=== PATIENT | male | born 1950 | race Caucasian/White ===

== ENCOUNTER → 2018-09-03 08:20 | Outpatient (BNVA) | payer MEDICARE, OTHER, SELFPAY | PROVIDERS: PCP Registered Nurse; Referring Provider Registered Nurse; Visit Provider Surgery | DX: Z12.11 Encounter for screening for malignant neoplasm of colon (principal); J44.9 Chronic obstructive pulmonary disease, unspecified ==

== ENCOUNTER 2018-09-20 10:10 | Day surgery (SDC) | payer OTHER, SELFPAY ==
--- NOTE | 2018-09-20 06:55 | COLE_ITS ---
Date of service: 09/20/18 Time of Service: 11:28 Colonoscopy Report Date of procedure: 09/20/18 Pre-op diagnosis general: Colon Cancer screening Post-op diagnosis procedure note: other (colorectal polyps) Procedure: Colonoscopy with polypectomy Surgeon: Trena Phillips Anesthesia proc note operative: MAC ([place]aud, Domitila/ ASA 2) Estimated blood loss (mL): 5 Pathology: other (cecal polyp, ascending polyp, sigmoid polyp) Complications: None Disposition: same day Indications: Mr. Murguia is a pleasant 68 year old male who was seen in the office for a screening colonoscopy. His last colonoscopy was over 10 years ago in [facility] and was normal per report. Risks, benefits and complications have been reviewed. Complications include but are not limited to bleeding, pain, perforation, missed small lesion/polyp, sore throat, aspiration and adverse reaction to the medications. Questions were entertained and answered to their satisfaction and they wished to proceed. No guarantees were given or implied. Prep: Miralax/Dulcolax Procedure Start Time: :28 Procedure End Time: 12:02 Retraction Time: 19 minutes Findings: Sessile cecal polyp, ascending polyp and sigmoid polyp Procedure Description: After informed consent was obtained the patient was taken to the procedure room and placed in a left decubitous position. Monitors were applied and a time out was done. The patients name, date of , procedure, allergies to medications and metal in their body was reviewed. The patient was then sedated. Once sedated and comfortable a rectal exam was done. External exam was normal. Internal exam revealed a normal sphincter tone and no palpable masses. The prostate felt smooth. The scope was then introduced and retro-flexed. No internal hemorrhoids were identified. The scope was then advanced to the cecum without difficulty. The TI and appendiceal orifice were identified. The prep was adequate. The scope was then slowly retracted over 19 minutes back into the rectum. Polyps were removed in the cecum (sessile polyp next to the appendiceal orifice with a hot snare), ascending polyp and sigmoid polyp removed with cold forceps. The scope was removed and the patient was woken up and taken back to Same day surgery in stable condition. The patient tolerated the procedure well and there were no immediate complications. Follow up: The patient should follow up in 3-5 years unless they develop changes in bowel habits or other new gastrointestinal complaints.
--- NOTE | 2018-09-20 07:00 | W.PM.DSUDISC ---
Discharge Plan Disposition Patient Disposition: HOME Condition: Good Discharge Details Reason For Visit: Colon Cancer screening Attending Provider: Trena Phillips Primary Care Provider: DESIREE YU Home Meds and New Rx's Prescriptions: Continued aspirin [Aspirin Low Dose] 81 MG tablet,delayed release (DR/EC) 81 mg PO DAILY RF: 0 simvastatin 40 MG tablet 40 mg PO DAILY RF: 0 calcium polycarbophil [Fiber (calcium polycarbophil)] 625 MG tablet 625 mg PO RF: 0 omeprazole 20 MG capsule,delayed release(DR/EC) 20 mg PO BID RF: 0 albuterol sulfate [ProAir HFA] 8.5 GM HFA aerosol inhaler 2 puff Inhalation Q4H PRN RF: 0 fluticasone [Flonase Allergy Relief] 9.9 ML spray,suspension 9.9 ml NS RF: 0 Spiriva with HandiHaler 18 MCG capsule, w/inhalation device 18 mcg Inhalation DAILY RF: 0 Symbicort 10.2 GM HFA aerosol inhaler 2 puff Inhalation BID RF: 0 Discontinued polyethylene glycol 3350 17 gram powder in packet 255 g PO DAILY Qty: 15 RF: 0 bisacodyl [Dulcolax (bisacodyl)] 5 mg tablet,delayed release (DR/EC) 5 mg PO ONCE Qty: 4 RF: 0 Discharge Instructions Instructions: Colonoscopy (DC), Colorectal Polyps (DC) Additional Instructions: Findings: 3 polyps Follow up: 3-5 years Please call if you develop: fevers >101.5 Nausea or Vomiting Abdominal pain that is not transient DAY SURGERY UNIT POST COLONOSCOPY INSTRUCTIONS 1. Because there will be medication in your system for the next 24 hours, you may feel a little sleepy. Your coordination will be affected. Therefore: a. Do not drive or operate dangerous equipment for 24 hours. b. Do not drink alcohol beverages for 24 hours (not even beer). c. Plan to go home and rest for the day. 2. Generally there are no restrictions on your activity after a day or so has gone by, but you may feel a bit fatigued for a few days. 3 After you arrive home you may have a light meal and return to a normal diet as you can tolerate it without feeling sick to your stomach. 4. After surgery, you may feel pain or discomfort. This should be only transient, but if it persists please contact your doctor. 5. If there are any questions regarding the findings of your procedure, please feel free to contact your doctor. 6. If you are unable to contact your doctor with a problem, contact the hospital at [phone]. 7. Continue all your regular medications unless directed otherwise. I understand the above instructions and have no questions. Signature of Patient or Responsible Adult Escort Date/Time Name of Responsible Adult Escort Signature of Nurse Date/Time Activity:: Activity as Tolerated Diet:: As Tolerated Discharge Orders Discharge Orders: Discharge Order (Routine); Ordered 09/20/18 Ordered By: Trena Phillips DS: Diagnosis Discharge Diagnosis (1) S/P colonoscopy: Status: Acute (2) Colorectal polyps: Status: Acute
[2018-09-20 10:19] VITALS: BP 132/80; PULSE 65; RESP 16; TEMP 35.9
[2018-09-20] MEDS: Lactated Ringers 1,000 ML 80 ML IV (11:08)
--- NOTE | 2018-09-20 11:38 | BOWEL_PTH ---
PATIENT: Shantal Lowe LOC: [facility] U#:[id number] AGE/SX: 68/M ROOM: RE09/20/[address]: Trena Phillips MD : [id number] BED: DIS: 09/20/2018 SPEC #: [id number] RECD: 09/20/18 12:47 STATUS: JERMAIN REQ #: [id number] NOHELIA: 09/20/18 11:[address]: Trena Phillips DEPT: Surgical Specimen RECD BY: Tosha Grant ENTERED: 09/20/18 12:48 SP TYPE: Bowel OTHR DR: Pritesh Chatman Tissues: 1 - BIOPSY BOWEL 2 - BIOPSY BOWEL 3 - BIOPSY BOWEL Procedures: GROSS AND MICRO LEVEL 4 Comments: [id number]
[2018-09-20 12:45] VITALS: BP 126/78; PULSE 49; RESP 16; TEMP 35.8; O2SAT 100
== END 2018-09-20 12:55 | disposition home or self-care (01) ==
LOC: SUR 10:10
PROVIDERS: PCP Family Medicine; Visit Provider Surgery
PROC: 0DJD8ZZ Inspection of Lower Intestinal Tract, Via Natural or Artificial Opening Endoscopic (ICD-10-PCS; CPT 45378; principal; 2018-09-20 11:00)
DX: Z12.11 Encounter for screening for malignant neoplasm of colon (principal); D12.0 Benign neoplasm of cecum; D12.2 Benign neoplasm of ascending colon; K63.5 Polyp of colon; J44.9 Chronic obstructive pulmonary disease, unspecified; G47.33 Obstructive sleep apnea (adult) (pediatric); I10 Essential (primary) hypertension
CPT/HCPCS: 45385; 45380; 88305

== ENCOUNTER 2019-01-17 16:51 | Outpatient (CLI) | payer OTHER, SELFPAY ==
--- NOTE | 2019-01-17 09:30 | DI.RAD_ITS ---
SYMPTOM/DIAGNOSIS: COUGH R05, ONSET 2 WEEKS, H/O COPD SEVERE EVALUATE FOR PNEUMONIA PA AND LATERAL CHEST: Comparison is made with 03 May 2014. The heart size is normal. The aorta is tortuous, unchanged. The lungs are mildly hyperinflated, consistent with COPD No superimposed infiltrate, effusion or pulmonary edema seen. IMPRESSION: No acute abnormality.
== END 2019-01-17 17:11 ==
PROVIDERS: PCP Family Medicine; Visit Provider Registered Nurse
DX: R05 Cough (principal); J44.9 Chronic obstructive pulmonary disease, unspecified
CPT/HCPCS: 71046

== ENCOUNTER 2019-08-24 01:15 | Outpatient (CLI) | payer OTHER, SELFPAY ==
--- NOTE | 2019-08-24 12:23 | DI.CTLCSR_ITS ---
EXAM: CT CHEST LUNG CANCER SCREEN CLINICAL HISTORY: SCREENING FOR CANCER Z12.9, FORMER SMOKER Z87.891 TECHNIQUE: Low-dose noncontrast COMPARISON: XR CHEST 2V PA LATERAL from 01/17/2019 FINDINGS: Heart size is normal. Coronary artery calcifications are seen. There are mild aortic calcification s. No pleural or pericardial effusions or adenopathy is seen. No gross abnormalities seen in the vi sualized portions of the upper abdomen. There is a 6 by 3 by 5 millimeter nodule at the left lung bas e laterally. There are no suspicious features. No additional nodules are identified. There are no inf iltrates. There are underlying mild emphysematous changes. There are mildly increased interstitial ma rkings. IMPRESSION: Lung RADS Cat 3 - Probably Benign: Probably benign finding(s) -6 month follow-up suggested; includes nodules with a low likelihood of becoming a clinically active cancer.
== END 2019-08-24 01:35 ==
PROVIDERS: PCP Family Medicine; Visit Provider Family Medicine
DX: Z12.2 Encounter for screening for malignant neoplasm of respiratory organs (principal); Z87.891 Personal history of nicotine dependence; R91.1 Solitary pulmonary nodule; J43.8 Other emphysema
CPT/HCPCS: G0297

== ENCOUNTER 2020-02-01 01:57 | Outpatient (CLI) | payer OTHER, SELFPAY ==
--- NOTE | 2020-02-01 | DI.CT_ITS ---
EXAM: CT CHEST WO CLINICAL HISTORY: LUNG NODULE R91.8 TECHNIQUE: Imaging Protocol: Axial computed tomography images with coronal and sagittal reformatted images were created and reviewed CONTRAST MATERIAL: Noncontrast COMPARISON: CT CT CHEST LUNG CANCER SCREEN from 08/24/2019 FINDINGS: Tracheobronchial tree: Patent where visualized. Mediastinum and Regi: No dominant adenopathy or fluid collection. Pulmonary parenchyma: No consolidation or dominant measurable mass. The previously noted nodule at th e left lung base is not visible on the current exam. The findings could be due to differences in insp iration since is located at the lung base. There is mild underlying scarring. There are no new nodule s. Mild emphysematous changes. Pleura: No effusion or pneumothorax. Heart: The heart is not dilated. Mild coronary artery calcifications are seen. Aorta: Thoracic aorta non-dilated. Mild calcification. Upper abdomen: Unremarkable. There is respiratory motion. Lymph nodes: Within normal limits. Bones: Degenerative changes are seen in the spine. IMPRESSION: Previously noted nodule at the left costophrenic angle is not visible on today's examination. If the patient is at increased risk for lung cancer, a low-dose screening CT could be considered in 1 2 months. RADIATION DOSE DELIVERED: Total DLP DATA REPOSITORY: All CT scans at this facility are submitted to the National Radiology Data Registry (NRDR) Dose Index Registry (DIR) with the [employer] ([employer]). RADIATION OPTIMIZATION: All CT scans at this facility use at least one of these dose optimization te chniques: automated exposure control; mA and/or kV adjustment per patient size (includes targeted exa ms where dose is matched to clinical indication); or iterative reconstruction.
== END 2020-02-01 02:17 ==
PROVIDERS: PCP Family Medicine; Visit Provider Family Medicine
DX: R91.1 Solitary pulmonary nodule (principal); J43.8 Other emphysema
CPT/HCPCS: 71250

== ENCOUNTER 2021-03-14 01:53 | Outpatient (CLI) | payer OTHER, SELFPAY ==
--- NOTE | 2021-03-14 | DI.CTLCSR_ITS ---
Exam(s) CT CHEST LUNG CANCER SCREEN EXAM: CT CHEST LUNG CANCER SCREEN CLINICAL HISTORY: SCREENING FOR LUNG CA,FORMER SMOKER, Z87.891,sofat[employer],. TECHNIQUE: Imaging Protocol: Low Dose Technique CONTRAST MATERIAL: None COMPARISON: CT CT CHEST LUNG CANCER SCREEN from 08/24/[address] CHEST LUNG CANCER SCREEN from 08/24/[address] CHEST WO from 02/01/[address] CHEST WO from 02/01/2020 FINDINGS: CHEST: LUNGS: In the anterior left lung base anterior basal segment left lower lobe the small nodule describ ed on the July 2019 study is noted, unchanged in size, measuring approximately 6 x 3 millimeters. There are no additional focal findings in the left lower lobe. There is a 3 millimeter nodular dens ity fissure based at superior segment at at the fissure level of the apical posterior segment of the left upper lobe, unchanged.. In the opposite-right lung there is an unchanged 3 millimeter pleural based nodule posteriorly over t he upper lobe. No new significant right lung findings. No pleural effusions on either side. No sig nificant focal findings in the trachea and mainstem bronchi. MEDIASTINUM: There is no obvious hilar nor mediastinal adenopathy. CARDIAC: Heart size is normal. There is no pericardial effusion.Caliber of the thoracic aorta is wit hin normal limits. OTHER: OSSEOUS: No significant osseous lesions.. IMPRESSION: 1. Stable bilateral benign-appearing lung findings. No new nodules. No pleural effusions. No obvio us intrathoracic adenopathy. 3. Lung RADS Cat 2 - Benign Appearance / Behavior: Nodules with a very low likelihood of becoming a c linically active cancer due to size or lack of growth Lung-RADS 1.0 CATEGORIES: Category 0 - Prior chest CT exam(s) being located for comparison. Category 1 - Annual screening in 12 months. No nodules or definitely benign nodules. Category 2 - Annual screening in 12 months. Benign appearance. Nodules with low likelihood of becomin g active cancer. Category 3 - 6-month follow-up. Probably benign. Short-term follow-up suggested. Nodules with low lik elihood of becoming active cancer. Category 4A - 3-month follow-up and CT/PET if >8 mm in size. Suspicious finding. Findings which requi re additional testing. Category 4B - Findings which require additional testing and tissue sampling. Modifier S- Potentially clinically significant findings (non lung cancer) RADIATION DOSE DELIVERED: 89.64mGy.cm Total DLP 1.84mGy CTDIvol DATA REPOSITORY: All CT scans at this facility are submitted to the National Radiology Data Registry (NRDR) Dose Index Registry (DIR) with the [employer] ([employer]). RADIATION OPTIMIZATION: All CT scans at this facility use at least one of these dose optimization te chniques: automated exposure control; mA and/or kV adjustment per patient size (includes targeted exa ms where dose is matched to clinical indication); or iterative reconstruction.
== END 2021-03-14 02:13 ==
PROVIDERS: PCP Family Medicine; Visit Provider Family Medicine
DX: Z12.2 Encounter for screening for malignant neoplasm of respiratory organs (principal); Z00.00 Encounter for general adult medical examination without abnormal findings; Z87.891 Personal history of nicotine dependence
CPT/HCPCS: 71271

== ENCOUNTER 2021-05-15 10:39 | Emergency (ER) | payer MEDICARE, SELFPAY ==
[2021-05-15] VITALS (38 sets, daily range): BP systolic 114–151; BP diastolic 62–92; PULSE 65–102; RESP 15–31; TEMP 37; O2SAT 92–96
--- NOTE | 2021-05-15 10:45 | RT.EKG_ITS ---
APPROVED REPORT Exam: Resting ECG Reason for Exam: sob Patient Location: E HR:74 bpm ECG Measurements Heart Rate 74 AXIS SD 171 P 83 QRSd 90 QRS -79 QT 385 T 67 QTc 428 Conclusion Sinus rhythm LAD, consider left anterior fascicular block.
--- NOTE | 2021-05-15 10:58 | W.ED.GENAD ---
Discharge Plan Disposition Patient Disposition: HOME Condition: Stable Discharge Details Clinical Impression: Dyspnea Primary Care Provider: Guido Jarquin ED Provider: Solomon Cook Home Meds and New Rx's Prescriptions: New prednisone 20 mg tablet 60 mg PO DAILY 5 Days Qty: 15 RF: 0 Continued simvastatin 40 MG tablet 40 mg PO DAILY RF: 0 omeprazole 20 MG capsule,delayed release(DR/EC) 20 mg PO BID RF: 0 albuterol sulfate [ProAir HFA] 8.5 GM HFA aerosol inhaler 2 puff Inhalation Q4H PRN RF: 0 fluticasone propionate [Flonase Allergy Relief] 9.9 ML spray,suspension 9.9 ml NS RF: 0 Spiriva with HandiHaler 18 MCG capsule, w/inhalation device 18 mcg Inhalation DAILY RF: 0 budesonide-formoterol [Symbicort] 10.2 GM HFA aerosol inhaler 2 puff Inhalation BID RF: 0 Discharge Instructions Instructions: Dyspnea (ED) Additional Instructions: Work-up in the ER today does not reveal any obvious emergent process. As we discussed your BNP was slightly elevated but your examination is not consistent with moderate or severe heart failure. Your CT of your chest was unremarkable. I personally spoke with Dr. Jarquin, he is aware of your ER visit and will follow you likely early next week. At this time your oxygen level has remained in the 90s and you do not require any supplemental oxygen. You were given a single dose of IV steroids here in the ER and I will provide you a 5-day burst dose of oral steroids. Please watch for new or worsening symptoms and return to the ER for any concerns. I would like you to contact your primary care office in the next 48 hours if they do not reach out to you to make your follow-up appointment Discharge Data Discharge Date/Time-TO BE ENTERED AT DEPARTURE: 05/15/21 14:40 Medical Decision Making 70-year-old gentleman, multiple comorbidities, presents to the ER reporting shortness of breath worsening over the past couple of days. Clinically he is slightly tachypneic, mild scattered wheezes, but speaks in full sentences and in no respiratory distress. Clinically this very well could be a COPD exacerbation would like to initiate cardiac work-up to further evaluate for atypical ACS, pneumonia, Covid, CHF, etc. Will provide 125 IV Solu-Medrol given his presentation. Wheezes clear with coughing, will not initiate albuterol or DuoNeb. Patient is afebrile, pulse in the 80s, O2 sat 95% on room air. Laboratory values reveal mild nonspecific leukocytosis of 12.35 hemoglobin 17.4 hematocrit 52.5 platelet count 264. INR 1.0. Electrolytes unremarkable, creatinine 1.1 with a GFR greater than 60. Magnesium 1.7, troponin less than 0.05, BNP slightly elevated at 773, no prior BNP for comparison. Patient does not have any pedal edema. No history of CHF. Awaiting chest CTA for further information, did not obtain D-dimer given his complaint of shortness of breath and wanting to rule out DVT, Covid-like changes, etc. troponin less than 0.05. CTA of the chest negative for PE. No pleural effusion. No new pulmonary nodules. Repeat troponin less than 0.05. Repeat EKG at [address] Flanagan as normal sinus rhythm, ventricular 74, no STEMI, please see his official report Patient appears well, no acute distress, speaking in full sentences, ambulates to the restroom without difficulty. O2 sats remained in the mid to high 90s on room air. He is not requiring supplemental oxygen. Patient still says that he has his subjective complaint although may be slightly better than his initial presentation. Given his age and multiple comorbidities, will discuss the case with his primary care provider. Case was discussed with Dr. Jarquin. He states that the patient was doing really well and they discontinued his Symbicort back in October, maybe it is time to get him back on this medication. He does believe that a 5-day burst dose of steroids is reasonable, he will see the patient early next week, and discuss his symptoms and discussed the potential of reinstating Symbicort. Patient was made aware of this plan. He has no additional questions or concerns and is comfortable with this plan. Standard discharge and return precautions provided This documentation was generated using [employer] system, please disregard any oddities of phrase or misspellings. Medical Records Medical records reviewed: Yes I reviewed the patient's medical records. Imaging Data Radiologic Study: Attestation: I personally reviewed and interpreted this imaging study as follows: Imaging: CT Scan Radiologist's impression: Exam(s) CT CHEST PE CTA EXAM: CT CHEST PE CTA CLINICAL HISTORY: SOB. TECHNIQUE: Imaging Protocol: Axial CT angiography was performed with multi-slice acquisition and multi-planar and/or 3D reconstructions. CONTRAST MATERIAL: Intravenous: Omnipaque 350 Contrast volume:100 mL COMPARISON: CT CT CHEST LUNG CANCER SCREEN from 03/14/2021 FINDINGS: The examination is limited due to patient motion artifact. Tracheobronchial tree: Patent where visualized. Pulmonary parenchyma: No focal consolidating infiltrates. No new pulmonary nodules are seen since the prior examination from 03/14/2021. No architectural distortion. Pulmonary Arteries: No evidence of filling defect to suggest pulmonary emboli. Mediastinum and Regi: No dominant adenopathy or fluid collection. Visualized thyroid gland: Unremarkable. Pleura: No effusion or pneumothorax. Heart: The heart is not dilated. There is coronary artery calcification. No pericardial effusion. Aorta: Thoracic aorta non-dilated. No evidence of dissection. Atherosclerosis. Upper abdomen: Unremarkable. Soft tissues: Unremarkable. Bones: Within normal limits for the patient's age. IMPRESSION: 1. No evidence of pulmonary embolism, thoracic aortic dissection or aneurysm. 2. Results of this exam have been verbally communicated with provider. Lab Data Lab results reviewed: Yes I reviewed the patient's lab results. Labs: Laboratory Tests Range/Units 05/15/21 05/15/21 05/15/21 11:02 11:02 11:02 WBC (4.4-10.8) 10^3/uL 12.35 H RBC (4.36-5.78) 10^6/uL 5.71 Hgb (13.5-17.5) g/dL 17.4 Hct (40.0-50.0) % 52.5 H MCV (80-95) fL 91.9 MCH (27.0-33.0) pg 30.5 MCHC (32.0-36.0) % 33.1 RDW (11.8-14.1) % 12.2 Plt Count (130-400) 10^3/uL 264 MPV (8.0-11.0) fL 10.9 Immature Gran % 0.5 Neutrophils % 81.1 Lymphocytes % 10.2 Monocytes % 7.0 Eosinophils % 0.7 Basophils % 0.5 Nucleated RBC % % 0 Absolute Neutrophils (1.2-6.7) 10^3/uL 10.02 H Absolute Lymphocytes (1.2-3.4) 10^3/uL 1.26 Absolute Monocytes (0.1-0.8) 10^3/uL 0.86 H Absolute Eosinophils (0.0-0.7) 10^3/uL 0.09 Absolute Basophils (0.0-0.2) 10^3/uL 0.06 PT (9.3-11.0) sec 10.4 INR (0.9-1.1) 1.0 APTT (21.0-27.5) sec 22.7 Sodium (136-145) mmol/L 139 Potassium (3.5-5.1) mmol/L 4.0 Chloride (98-107) mmol/L 103 Carbon Dioxide (21.0-32.0) mmol/L 24.9 Anion Gap (3-11) mmol/L 11.1 H BUN (7-18) mg/dL 17 Creatinine (0.70-1.30) mg/dL 1.1 Estimated GFR/1.73 m2 (mL/min/1.73m2) >= 60.00 Glucose (74-106) mg/dL 109 H Calcium (8.5-10.1) mg/dL 8.9 Magnesium (1.8-2.4) mg/dL 1.7 L Total Bilirubin (0.2-1.0) mg/dL 0.7 AST (15-37) U/L 13 L ALT (16-63) U/L 20 Alkaline Phosphatase (46-116) U/L 66 Troponin I (<0.06) ng/mL < 0.05 NT-Pro-B Natriuret Pep (<300) pg/mL 773 H Total Protein (6.4-8.2) g/dL 7.1 Albumin (3.4-5.0) g/dL 4.0 COVID-19 Source SARS-CoV-2 (PCR) (Negative) Range/Units 05/15/21 05/15/21 11:07 14:02 WBC (4.4-10.8) 10^3/uL RBC (4.36-5.78) 10^6/uL Hgb (13.5-17.5) g/dL Hct (40.0-50.0) % MCV (80-95) fL MCH (27.0-33.0) pg MCHC (32.0-36.0) % RDW (11.8-14.1) % Plt Count (130-400) 10^3/uL MPV (8.0-11.0) fL Immature Gran % Neutrophils % Lymphocytes % Monocytes % Eosinophils % Basophils % Nucleated RBC % % Absolute Neutrophils (1.2-6.7) 10^3/uL Absolute Lymphocytes (1.2-3.4) 10^3/uL Absolute Monocytes (0.1-0.8) 10^3/uL Absolute Eosinophils (0.0-0.7) 10^3/uL Absolute Basophils (0.0-0.2) 10^3/uL PT (9.3-11.0) sec INR (0.9-1.1) APTT (21.0-27.5) sec Sodium (136-145) mmol/L Potassium (3.5-5.1) mmol/L Chloride (98-107) mmol/L Carbon Dioxide (21.0-32.0) mmol/L Anion Gap (3-11) mmol/L BUN (7-18) mg/dL Creatinine (0.70-1.30) mg/dL Estimated GFR/1.73 m2 (mL/min/1.73m2) Glucose (74-106) mg/dL Calcium (8.5-10.1) mg/dL Magnesium (1.8-2.4) mg/dL Total Bilirubin (0.2-1.0) mg/dL AST (15-37) U/L ALT (16-63) U/L Alkaline Phosphatase (46-116) U/L Troponin I (<0.06) ng/mL < 0.05 NT-Pro-B Natriuret Pep (<300) pg/mL Total Protein (6.4-8.2) g/dL Albumin (3.4-5.0) g/dL COVID-19 Source Nasal/Nares SARS-CoV-2 (PCR) (Negative) Negative ECG Data Attestation: I personally reviewed and interpreted this ECG (s) as follows: Interpretation: Please see official report by Dr. Flanagan. Sinus rhythm, ventricular rate of 74. No STEMI HPI General Mode of arrival: ambulatory. Date/Time Provider Initiated Documentation: 05/15/21 10:45. Limitations to Documentation: no limitations. Information obtained by: patient. HPI Narrative: This is a 70-year-old male, past medical history that includes COPD, hypertension, GERD, hyperlipidemia, obstructive sleep apnea, current smoker, presenting to the ER today complaining of chest acute on chronic shortness of breath over the past couple of days. Patient reports a chronic cough may be slightly worse over the past couple of days. He denies any chest pain whatsoever, reports that he simply feels like he cannot catch his breath. He has been taking all of his medications as directed. He does report decreased appetite, vomited 1 time yesterday. He is currently taking amoxicillin for a tooth infection is scheduled to have his tooth extracted in the next week. He states that he has been vaccinated against Covid. He denies recent illness, sick contact, or travel. He denies headache, visual changes, neck pain, chest pain abdominal pain, nausea, pain or swelling in his legs, fluid retention, change in bowel or bladder function. Denies history of DVT or PE. Related Data Home Medications Medication Instructions Recorded Confirmed Spiriva with HandiHaler 18 mcg INHALATION DAILY tab-cap NS 03/15/18 05/15/21 albuterol sulfate [ProAir HFA] 2 puff INHALATION Q4H PRN inhaler 03/15/18 05/15/21 NS budesonide-formoterol [Symbicort] 2 puff INHALATION BID inhaler NS 03/15/18 05/15/21 fluticasone propionate [Flonase 9.9 ml NS NS 03/15/18 09/03/18 Allergy Relief] omeprazole 20 mg PO BID NS 03/15/18 05/15/21 simvastatin 40 mg PO DAILY tab-cap NS 03/15/18 05/15/21 prednisone 60 mg PO DAILY 5 Days #15 tab 05/15/21 Previous Rx's Medication Instructions Recorded prednisone 60 mg PO DAILY 5 Days #15 tab 05/15/21 Allergies Allergy/AdvReac Type Severity Reaction Status Date / Time No Known Allergies Allergy Unverified 05/15/21 11:15 General Stated Complaint: SOB JAGUAR: 2 Review of Systems Constitutional Constitutional: Denies fatigue, Denies fever(s) and Denies weakness Eyes Eyes: Denies change in vision ENT Ears, Nose, Mouth, and Throat: Denies neck pain Cardiovascular Cardiovascular: Denies chest pain and Reports dyspnea Respiratory Respiratory: Reports cough and Reports dyspnea Gastrointestinal Gastrointestinal: Denies abdominal pain, Denies nausea and Reports vomiting Genitourinary Genitourinary: Denies dysuria Musculoskeletal Musculoskeletal: Denies back pain and Denies neck pain Integumentary/Breasts Skin/Breast: Denies rash Neurologic Neurologic: Denies weakness Endocrine Endocrine: Denies fatigue Hematologic/Lymphatic Hematologic/Lymphatic: Denies easy bleeding and Denies easy bruising PFSH Medical History Colorectal polyps (~09/20/18) COPD (chronic obstructive pulmonary disease) Elevated blood pressure reading in office without diagnosis of hypertension GERD (gastroesophageal reflux disease) Hyperlipidemia Neck pain Onychomycosis of toenail MAURICIO (obstructive sleep apnea) Seasonal allergies Seborrheic keratosis Syncope Surgical History S/P colonoscopy S/P colonoscopy (~09/20/18) Social History Smoking/Tobacco Use Status: Current every day Tobacco Type: cigarettes Smoking risk assessment performed?: Yes Alcohol Intake: current Alcohol Intake frequency: a few times a month Drug use: Never Substance use type: does not use 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 Do you feel safe at home: Yes Do you feel safe in your relationship?: Yes Exam Const General: cooperative, healthy appearing, comfortable and no acute distress Orientation: alert, awake and oriented x3 HENMT Head: normal to inspection, normocephalic and atraumatic Face and sinus: normal facial exam Mouth: moist mucous membranes Eyes General: appearance normal, both eyes and all related structures Conjunctivae: conjunctivae normal Neck Neck: normal visual inspection, full ROM, no lymphadenopathy, no meningeal signs, trachea midline, supple and nontender Resp Effort & Inspection: able to speak in complete sentences, cough Quality of cough: dry (Mild) and tachypneic (Slightly) Auscultation: diminished lung sounds bilaterally in the lower lung merino and wheezes (Mild, scattered, mostly clear with cough) Cardio Rate: regular rate Rhythm: regular rhythm GI Palpation: soft, not firm, no guarding, no pulsatile masses and nontender Auscultation: normal bowel sounds Back/Spine/Pelvis Back: No back tenderness Skin General skin exam: no rashes or lesions noted Neuro General: patient alert, patient awake, moves all extremities and no focal motor deficits Cognition: normal cognition Speech: speech normal Gait: normal gait Motor: muscle tone normal throughout Sensory Exam: no sensory deficits noted Extrem General: normal to inspection, full ROM, capillary refill normal, no pedal edema and no calf tenderness Psych Appearance: grossly normal Mental Status: mental status grossly normal Course Vital Signs Vital signs: Vital Signs Temperature 37.0 C 05/15/21 10:49 Pulse 85 05/15/21 10:49 Respiratory Rate 28 H 05/15/21 10:49 Blood Pressure 136/83 05/15/21 10:49 Pulse Oximetry 95 05/15/21 10:49 Temperature 37.0 C 05/15/21 10:49 Temperature Source Temporal Artery Scan 05/15/21 10:49 Pulse 85 05/15/21 10:49 Respiratory Rate 28 H 05/15/21 10:49 Blood Pressure 136/83 05/15/21 10:49 Blood Pressure Position Sitting 05/15/21 10:49 Pulse Oximetry 95 05/15/21 10:49 Oxygen Delivery Method Room Air 05/15/21 10:49 Oxygen Flow Rate 0 05/15/21 10:49 Pain Level 0 05/15/21 10:49
[2021-05-15 11:15] LABS: Abs Immature Grans 0.06 10^3/uL (0.0-0.06); Absolute Basophil Count 0.06 10^3/uL (0.0-0.2); Absolute Eosinophil Count 0.09 10^3/uL (0.0-0.7); Absolute Lymphocyte Count 1.26 10^3/uL (1.2-3.4); Absolute Monocyte Count 0.86 10^3/uL (0.1-0.8); Absolute Neutrophil Count 10.02 10^3/uL (1.2-6.7); Basophils % 0.5; Eosinophils % 0.7; HCT 52.5 % (40.0-50.0); HGB 17.4 g/dL (13.5-17.5); Immature Grans % 0.5; Lymphocytes % 10.2; MCH 30.5 pg (27.0-33.0); MCHC 33.1 % (32.0-36.0); MCV 91.9 fL (80-95); MPV 10.9 fL (8.0-11.0); Neutrophils % 81.1; Nucleated RBC 0 %; Platelet Count 264 10^3/uL (130-400); RBC 5.71 10^6/uL (4.36-5.78); RDW 12.2 % (11.8-14.1); RDW-SD 41.5 fL; WBC 12.35 10^3/uL (4.4-10.8)
[2021-05-15 11:15] LABS: Source Nasal/Nares
[2021-05-15 11:34] LABS: ALT 20 U/L (16-63); AST 13 U/L (15-37); Alkaline Phosphatase 66 U/L (46-116); Anion Gap 11.1 mmol/L (3-11); BUN 17 mg/dL (7-18); Bilirubin, Total 0.7 mg/dL (0.2-1.0); CO2 24.9 mmol/L (21.0-32.0); CREATININE 1.1 mg/dL (0.70-1.30); Calcium 8.9 mg/dL (8.5-10.1); Chloride 103 mmol/L (98-107); Glucose 109 mg/dL (74-106); Magnesium 1.7 mg/dL (1.8-2.4); NT-proBNP 773 pg/mL (<300); Sodium 139 mmol/L (136-145); Total Protein 7.1 g/dL (6.4-8.2)
[2021-05-15 11:35] LABS: Troponin I < 0.05 ng/mL (<0.06)
[2021-05-15 11:59] LABS: PTT Activated 22.7 sec (21.0-27.5); Prothrombin Time 10.4 sec (9.3-11.0)
[2021-05-15] MEDS: Omnipaque 350 MG/ML 100 ML BTL IJ (12:07)
[2021-05-15] MEDS: Normal Saline - Diluent 50 ML VIAL IV (12:08)
[2021-05-15] MEDS: Normal Saline Flush 10 ML SYR IVP (12:08)
--- NOTE | 2021-05-15 12:10 | DI.CT_ITS ---
Exam(s) CT CHEST PE CTA EXAM: CT CHEST PE CTA CLINICAL HISTORY: SOB. TECHNIQUE: Imaging Protocol: Axial CT angiography was performed with multi-slice acquisition and mu lti-planar and/or 3D reconstructions. CONTRAST MATERIAL: Intravenous: Omnipaque 350 Contrast volume:100 mL COMPARISON: CT CT CHEST LUNG CANCER SCREEN from 03/14/2021 FINDINGS: The examination is limited due to patient motion artifact. Tracheobronchial tree: Patent where visualized. Pulmonary parenchyma: No focal consolidating infiltrates. No new pulmonary nodules are seen since th e prior examination from 03/14/2021. No architectural distortion. Pulmonary Arteries: No evidence of filling defect to suggest pulmonary emboli. Mediastinum and Regi: No dominant adenopathy or fluid collection. Visualized thyroid gland: Unremarkable. Pleura: No effusion or pneumothorax. Heart: The heart is not dilated. There is coronary artery calcification. No pericardial effusion. Aorta: Thoracic aorta non-dilated. No evidence of dissection. Atherosclerosis. Upper abdomen: Unremarkable. Soft tissues: Unremarkable. Bones: Within normal limits for the patient's age. IMPRESSION: 1. No evidence of pulmonary embolism, thoracic aortic dissection or aneurysm. 2. Results of this exam have been verbally communicated with provider. RADIATION DOSE DELIVERED: 502.61mGy.cm Total DLP DATA REPOSITORY: All CT scans at this facility are submitted to the National Radiology Data Registry (NRDR) Dose Index Registry (DIR) with the [employer] (ACR). RADIATION OPTIMIZATION: All CT scans at this facility use at least one of these dose optimization te chniques: automated exposure control; mA and/or kV adjustment per patient size (includes targeted exa ms where dose is matched to clinical indication); or iterative reconstruction.
[2021-05-15 12:29] LABS: COVID-19 PCR Negative (Negative)
[2021-05-15] MEDS: methylPREDNISolone SUCC 125 MG VIAL IVP (13:23)
--- NOTE | 2021-05-15 13:45 | RT.EKG_ITS ---
APPROVED REPORT Exam: Resting ECG Reason for Exam: sob Patient Location: E HR:74 bpm ECG Measurements Heart Rate [address] 182 P 77 QRSd 87 QRS -8 QT 394 T 67 QTc 437 Conclusion Sinus rhythm...normal P axis, V-rate 60- 99
[2021-05-15 14:24] LABS: Troponin I < 0.05 ng/mL (<0.06)
== END 2021-05-15 14:40 | disposition home or self-care (01) ==
PROVIDERS: Emergency Provider Physician Assistant; PCP Family Medicine
DX: R06.00 Dyspnea, unspecified (principal); J44.9 Chronic obstructive pulmonary disease, unspecified; F17.210 Nicotine dependence, cigarettes, uncomplicated; Z20.822 Contact with and (suspected) exposure to COVID-19; Z03.818 Encounter for observation for suspected exposure to other biological agents ruled out
CPT/HCPCS: 36415; 71275; 80053; 87635; 93005; 96374; 99285; 83735; 83880; 84484; 85025; 85610; 85730; 93010; J2930; J3490

== ENCOUNTER 2022-05-02 15:58 | Outpatient (REF) | payer OTHER, SELFPAY ==
[2022-05-02 17:12] LABS: Anion Gap 7.9 mmol/L (3-11); BUN 21 mg/dL (7-18); CO2 30.1 mmol/L (21.0-32.0); Calcium 8.8 mg/dL (8.5-10.1); Calculated LDL 144 mg/dL (<100); Chloride 104 mmol/L (98-107); Cholesterol 236 mg/dL (<200); Estimated GFR 80.47 (mL/min/1.73m2); Glucose 99 mg/dL (74-106); HDL Cholesterol 71 mg/dL (40-60); Magnesium 1.6 mg/dL (1.8-2.4); Potassium 4.4 mmol/L (3.5-5.1); Sodium 142 mmol/L (136-145); Triglyceride 107 mg/dL (<150)
== END 2022-05-02 15:59 | disposition home or self-care (01) ==
LOC: NCHCN 15:58
PROVIDERS: PCP Family Medicine; Visit Provider Family Medicine
DX: E78.5 Hyperlipidemia, unspecified (principal); E83.42 Hypomagnesemia; R91.8 Other nonspecific abnormal finding of lung field
CPT/HCPCS: 80048; 80061; 83735

== ENCOUNTER 2022-06-10 03:07 | Outpatient (CLI) | payer OTHER, SELFPAY ==
--- NOTE | 2022-06-10 | DI.CT_ITS ---
Exam(s) CT CHEST WO EXAM: CT CHEST WO CLINICAL HISTORY: LUNG NODULE, R91.8 FOLLOW UP. TECHNIQUE: Multi planar reconstructions were performed. CONTRAST MATERIAL: None COMPARISON: CT CT CHEST LUNG CANCER SCREEN from 03/14/[address] CHEST PE CTA from 05/15/2021 FINDINGS: CHEST: LUNGS: This mild atelectasis-infiltrate evident in the right middle lobe, not previously present. Ot her findings are stable. No new nodules. MEDIASTINUM: There is no obvious hilar nor mediastinal adenopathy. Visualized thyroid unremarkable.No obvious axillary adenopathy CARDIAC: Heart size is normal. There is no pericardial effusion.Caliber of the thoracic aorta is wit hin normal limits. VISUALIZED UPPER ABDOMEN: OSSEOUS: No significant osseous lesions.. IMPRESSION: 1. There is new atelectasis and mild infiltrate in the right middle lobe. No pleural effusions. 2. Previously described findings again noted. No change. No new nodules evident. 3. No intrathoracic adenopathy. RADIATION DOSE DELIVERED: 483.42mGy.cm Total DLP DATA REPOSITORY: All CT scans at this facility are submitted to the National Radiology Data Registry (NRDR) Dose Index Registry (DIR) with the [employer] (ACR). RADIATION OPTIMIZATION: All CT scans at this facility use at least one of these dose optimization te chniques: automated exposure control; mA and/or kV adjustment per patient size (includes targeted exa ms where dose is matched to clinical indication); or iterative reconstruction.
== END 2022-06-10 03:27 ==
LOC: DI 03:07
PROVIDERS: PCP Family Medicine; Visit Provider Family Medicine
DX: J98.11 Atelectasis (principal); R91.8 Other nonspecific abnormal finding of lung field
CPT/HCPCS: 71250

== ENCOUNTER 2023-05-28 17:24 | Outpatient (REF) | payer OTHER, SELFPAY ==
[2023-05-28 19:00] LABS: Abs Immature Grans 0.03 10^3/uL (0.0-0.06); Absolute Basophil Count 0.07 10^3/uL (0.0-0.2); Absolute Eosinophil Count 0.18 10^3/uL (0.0-0.7); Absolute Lymphocyte Count 1.73 10^3/uL (1.2-3.4); Absolute Monocyte Count 0.76 10^3/uL (0.1-0.8); Absolute Neutrophil Count 6.07 10^3/uL (1.2-6.7); Basophils % 0.8; HCT 48.1 % (40.0-50.0); HGB 15.7 g/dL (13.5-17.5); Immature Grans % 0.3; Lymphocytes % 19.6; MCH 30.3 pg (27.0-33.0); MCHC 32.6 % (32.0-36.0); MCV 93 fL (80-95); MPV 11.5 fL (8.0-11.0); Monocytes % 8.6; Neutrophils % 68.7; Platelet Count 334 10^3/uL (130-400); RBC 5.18 10^6/uL (4.36-5.78); RDW 12.4 % (11.8-14.1); RDW-SD 43.4 fL; WBC 8.84 10^3/uL (4.4-10.8)
[2023-05-28 19:19] LABS: ALT 22 U/L (16-63); AST 14 U/L (15-37); Albumin 3.9 g/dL (3.4-5.0); Alkaline Phosphatase 70 U/L (46-116); Anion Gap 4.8 mmol/L (3-11); BUN 16 mg/dL (7-18); Bilirubin, Total 0.6 mg/dL (0.2-1.0); CO2 33.2 mmol/L (21.0-32.0); CREATININE 1.1 mg/dL (0.70-1.30); Calcium 9.6 mg/dL (8.5-10.1); Chloride 101 mmol/L (98-107); Estimated GFR 71.32 (mL/min/1.73m2); Glucose 98 mg/dL (74-106); Magnesium 1.9 mg/dL (1.8-2.4); NT-proBNP 48 pg/mL (<300); Potassium 4.9 mmol/L (3.5-5.1); Sodium 139 mmol/L (136-145); Total Protein 6.6 g/dL (6.4-8.2)
== END 2023-05-28 17:25 | disposition home or self-care (01) ==
LOC: NCHCN 17:24
PROVIDERS: PCP Family Medicine; Visit Provider Family Medicine
DX: R06.00 Dyspnea, unspecified (principal); R63.4 Abnormal weight loss; E83.42 Hypomagnesemia
CPT/HCPCS: 80053; 83735; 83880; 85025

== ENCOUNTER → 2023-07-02 02:59 | Outpatient (CLI) | payer OTHER, SELFPAY ==
--- NOTE | 2023-07-02 | DI.CTLCSR_ITS ---
Exam(s) CT CHEST LUNG CANCER SCREEN EXAM: CT CHEST LUNG CANCER SCREEN CLINICAL HISTORY: SCREENING FOR LUNG CA,FORMER SMOKER, Z87.891 TECHNIQUE: Imaging Protocol: Axial computed tomography images with coronal and sagittal reformatted images were created and reviewed. Low dose screening protocol. COMPARISON: CT CT CHEST LUNG CANCER SCREEN from 08/24/[address] CHEST LUNG CANCER SCREEN from 03/14/[address] CHEST WO from 06/10/2022 FINDINGS: Tracheobronchial tree: No bronchiectasis or mucus plugging. Mild bronchial wall thickening in the lo wer lobes.. Mediastinum and Regi: No dominant adenopathy or fluid collection. Pulmonary parenchyma: No consolidation or dominant measurable mass. Clearing of previously noted den sities in the right middle lobe. Mild residual scarring. Mild emphysematous changes. Lung Nodules: Stable 3 millimeter perifissural nodule left upper lobe. Previously noted nodule at th e left costophrenic angle is not visible on the current exam. Pleura: No effusion. No pneumothorax. Heart: The heart is not dilated. Moderate coronary artery calcifications are seen. Aorta: Thoracic aorta non-dilated. Upper abdomen: Unremarkable. Bones: Unremarkable for age. Degenerative changes. Soft Tissues: Mild bilateral gynecomastia. IMPRESSION: No suspicious pulmonary nodules. Lung RADS Cat 2 - Benign Appearance / Behavior: Nodules with a very low likelihood of becoming a clin ically active cancer due to size or lack of growth Lung-RADS 1.0 CATEGORIES: Category 0 - Prior chest CT exam(s) being located for comparison. Category 1 - Annual screening in 12 months. No nodules or definitely benign nodules. Category 2 - Annual screening in 12 months. Benign appearance. Nodules with low likelihood of becomin g active cancer. Category 3 - 6-month follow-up. Probably benign. Short-term follow-up suggested. Nodules with low lik elihood of becoming active cancer. Category 4A - 3-month follow-up and CT/PET if >8 mm in size. Suspicious finding. Findings which requi re additional testing. Category 4B - Findings which require additional testing and tissue sampling. Category 4X - Category 3 or 4 nodules with additional features or imaging findings that increases the suspicion of malignancy. Modifier S- Potentially clinically significant findings (non lung cancer) RADIATION DOSE DELIVERED: Total DLP DATA REPOSITORY: All CT scans at this facility are submitted to the National Radiology Data Registry (NRDR) Dose Index Registry (DIR) with the [employer] (ACR). RADIATION OPTIMIZATION: All CT scans at this facility use at least one of these dose optimization te chniques: automated exposure control; mA and/or kV adjustment per patient size (includes targeted exa ms where dose is matched to clinical indication); or iterative reconstruction.
== END ==
PROVIDERS: PCP Family Medicine; Visit Provider Family Medicine
DX: Z87.891 Personal history of nicotine dependence (principal); Z12.2 Encounter for screening for malignant neoplasm of respiratory organs
CPT/HCPCS: 71271

== ENCOUNTER 2024-01-09 10:53 | Emergency (ER) | payer OTHER, SELFPAY ==
[2024-01-09] VITALS (23 sets, daily range): BP systolic 127–137; BP diastolic 96–97; PULSE 69–98; RESP 15–29; TEMP 36.6; O2SAT 96
--- NOTE | 2024-01-09 10:45 | RT.EKG_ITS ---
APPROVED REPORT Exam: Resting ECG Reason for Exam: SOB Patient Location: E HR:90 bpm ECG Measurements Heart Rate 90 AXIS MA 140 P -53 QRSd 86 QRS 3 QT 501 T 57 QTc 613 Conclusion Sinus or ectopic atrial rhythm...P axis (-45,135) Prolonged QT interval...QTc >500mS Narrow complex normal sinus rhythm at a rate of 90. Left axis deviation no signs of LVH. Low voltag e. No ST segment abnormalities. Prolonged QTc. MA within normal limits. Compared to prior dated 3 years ago low voltage is persistent prolonged QTc is new.
--- NOTE | 2024-01-09 11:15 | DI.CT_ITS ---
Exam(s) CT CHEST PE CTA EXAM: CT CHEST PE CTA CLINICAL HISTORY: chest pain, sob. TECHNIQUE: Imaging Protocol: Axial CT angiography was performed with multi-slice acquisition and mu lti-planar and/or 3D reconstructions. CONTRAST MATERIAL: Intravenous: Omnipaque 350 contrast volume:100 mL COMPARISON: CT CT CHEST LUNG CANCER SCREEN from 07/02/2023 FINDINGS: The examination is limited due to patient motion artifact. Tracheobronchial tree: Patent where visualized. Pulmonary parenchyma: Centrilobular emphysematous changes are present. No focal consolidating infilt rates. Pulmonary Arteries: No evidence of filling defect to suggest pulmonary emboli. Mediastinum and Regi: No dominant adenopathy or fluid collection. The esophagus is unremarkable. Visualized thyroid gland: Unremarkable. Pleura: No effusion or pneumothorax. Heart: The heart is not dilated. Coronary artery calcification is present. No pericardial effusion. Aorta: Thoracic aorta non-dilated. No evidence of dissection. Atherosclerotic calcification is presen t. Upper abdomen: Unremarkable. Soft tissues: Unremarkable. Bones: Within normal limits for the patient's age.There is an old L2 superior compression fracture de formity. IMPRESSION: 1. No evidence of pulmonary embolism, thoracic aortic dissection or aneurysm. 2. No acute pulmonary process. RADIATION DOSE DELIVERED: Total DLP DATA REPOSITORY: All CT scans at this facility are submitted to the National Radiology Data Registry (NRDR) Dose Index Registry (DIR) with the [employer] (ACR). RADIATION OPTIMIZATION: All CT scans at this facility use at least one of these dose optimization te chniques: automated exposure control; mA and/or kV adjustment per patient size (includes targeted exa ms where dose is matched to clinical indication); or iterative reconstruction.
[2024-01-09] MEDS: methylPREDNISolone SUCC 125 MG VIAL 80 MG IVP (11:20)
[2024-01-09 11:21] LABS: BE (Venous) 3 mmol/L (-2-3); HCO3 (Venous) 28 mmol/L (23-28); O2 Sat (Venous) 40 %; TCO2 (Venous) 25 mmol/L (24-29); pCO2 (Venous) 53 mmHg (41-51); pH (Venous) 7.34 (7.31-7.41); pO2 (Venous) 24 mmHg
[2024-01-09 11:24] LABS: Abs Immature Grans 0.07 10^3/uL (0.0-0.06); Absolute Basophil Count 0.05 10^3/uL (0.0-0.2); Absolute Eosinophil Count 0.11 10^3/uL (0.0-0.7); Absolute Monocyte Count 0.79 10^3/uL (0.1-0.8); Absolute Neutrophil Count 8.15 10^3/uL (1.2-6.7); Basophils % 0.5 %; HCT 54.7 % (40.0-50.0); HGB 18.4 g/dL (13.5-17.5); Immature Grans % 0.7 %; Lymphocytes % 13.2 %; MCH 30.8 pg (27.0-33.0); MCHC 33.6 % (32.0-36.0); MCV 92 fL (80-95); MPV 10.9 fL (8.0-11.0); Monocytes % 7.5 %; Neutrophils % 77.1 %; Platelet Count 262 10^3/uL (130-400); RBC 5.97 10^6/uL (4.36-5.78); RDW 12.4 % (11.8-14.1); RDW-SD 41.7 fL; WBC 10.57 10^3/uL (4.4-10.8)
[2024-01-09] MEDS: Albuterol/Ipratropium 3 ML UPD VIAL 6 ML UPD (11:25)
[2024-01-09] MEDS: Normal Saline 500 ML IV (11:30)
[2024-01-09 11:48] LABS: ALT 30 U/L (16-63); AST 12 U/L (15-37); Albumin 4.2 g/dL (3.4-5.0); Alkaline Phosphatase 74 U/L (46-116); Anion Gap 10.2 mmol/L (3-11); BUN 26 mg/dL (7-18); Bilirubin, Total 0.7 mg/dL (0.2-1.0); CO2 27.8 mmol/L (21.0-32.0); CREATININE 1.4 mg/dL (0.70-1.30); Chloride 102 mmol/L (98-107); Estimated GFR 53.07 (mL/min/1.73m2); Glucose 151 mg/dL (74-106); Magnesium 1.6 mg/dL (1.8-2.4); NT-proBNP 155 pg/mL (<300); Potassium 3.8 mmol/L (3.5-5.1); Sodium 140 mmol/L (136-145); Total Protein 7.7 g/dL (6.4-8.2); Troponin I < 50 ng/L (< or =60)
[2024-01-09] MEDS: Normal Saline - Diluent 50 ML VIAL IJ (12:03)
[2024-01-09] MEDS: Omnipaque 350 MG/ML 100 ML BTL IJ (12:04)
[2024-01-09 12:42] LABS: COVID-19 PCR Negative (Negative); Influenza A PCR Negative (Negative); Influenza B PCR Negative (Negative); RSV PCR Negative (Negative)
[2024-01-09 12:49] LABS: Source Nasopharynx
[2024-01-09] MEDS: Albuterol/Ipratropium 3 ML UPD VIAL UPD (13:45)
--- NOTE | 2024-01-09 13:48 | DI.VRAD_ITS ---
PROCEDURE INFORMATION: Exam: CTA Chest With Contrast Exam date and time: 01/09/2024 12:11 PM Age: 73 years old Clinical indication: Other: Chest pain, SOB TECHNIQUE: Imaging protocol: Computed tomographic angiography of the chest with contrast. Exam focused on the arteries. 3D rendering (Not supervised by radiologist): MIP and/or 3D reconstructed images were created by the technologist. Radiation optimization: All CT scans at this facility use at least one of these dose optimization techniques: automated exposure control; mA and/or kV adjustment per patient size (includes targeted exams where dose is matched to clinical indication); or iterative reconstruction. Contrast material: OMNI 350; Contrast volume: 100 ml; Contrast route: INTRAVENOUS (IV); COMPARISON: CT CHEST PE CTA 05/15/2021 12:07 PM FINDINGS: Pulmonary arteries: No findings to suggest acute pulmonary embolus. Aorta: Aorta is nonaneurysmal. There is no acute aortic abnormality. Lungs: Mild emphysematous changes are seen in the lungs. There is minimal linear opacity in the middle lobe likely representing atelectasis or scarring, this is unchanged. No new pulmonary parenchymal mass or nodule is identified. Pleural spaces: A large pleural effusion, or pneumothorax is not seen. Heart: Heart size is within normal limits, unchanged. Coronary artery calcification is noted. There is no significant pericardial effusion Lymph nodes: No significant adenopathy is identified. Intraperitoneal space: There are no new findings identified in the upper abdomen. Bones/joints: There is dextroconvex scoliosis. Degenerative changes are seen in the spine. Soft tissues: No new subcutaneous abnormality is identified. Other findings: Exam is mildly degraded by patient motion. IMPRESSION: No evidence of acute pulmonary embolus. No new or acute findings identified when compared with prior exams. Dictated and Authenticated by: Gissell Lang MD. Ordering:RADHA Givens MD
--- NOTE | 2024-01-09 14:19 | ED.GENADUL_ITS ---
Discharge Plan Discharge Details Chief Complaint: Chest Pain Primary Care Provider: Guido Jarquin ED Provider: Tosha Ruiz Home Meds and New Rx's Prescriptions: New magnesium 250 mg tablet 250 mg PO DAILY Qty: 14 0RF prednisone 10 mg tablet 10 mg PO DIRECTED Qty: 30 0RF Rx Instructions: see taper instructions Take 4 tabs for 3 days, 3 tabs for 3 days, 2 tabs for 3 days, and 1 tab for 3 days Incruse Ellipta 62.5 mcg/actuation blister with device 1 inh inhalation DAILY Qty: 30 0RF prednisone 10 mg tablet 10 mg PO DIRECTED Qty: 30 0RF Rx Instructions: see taper instructions Take 4 tablets x 3 days, 3 tablets x 3 days 2 tablets x 3 days and 1 tablet x 3 days doxycycline monohydrate 100 mg capsule 100 mg PO BID Qty: 20 0RF Continued albuterol sulfate [ProAir HFA] 8.5 GM HFA aerosol inhaler 2 puff Inhalation Q4H PRN fluticasone propionate [Flonase Allergy Relief] 9.9 ML spray,suspension 9.9 ml NS BID PRN triamcinolone acetonide 0.1 % cream 1 applic topical BID magnesium oxide 400 mg magnesium capsule 400 mg PO DAILY omeprazole 20 mg tablet,delayed release (DR/EC) 20 mg PO DAILY Discontinued fluticasone propion-salmeterol [Advair Diskus] 100-50 mcg/dose blister with device 2 inh inhalation BID Hold Instructions: never helped Discharge Instructions Additional Instructions: Take the prednisone as prescribed, take the next dose tomorrow as you received a dose today Continue to use your inhaler, 2 puffs every 4 hours Take the doxycycline as prescribed until completed Take the new inhaler that I prescribed as this will hopefully prevent a recurrent episode Follow-up with pulmonology, and placing referral Increase your fluids as you are dehydrated here today, you will need a recheck of your creatinine levels At least eight 8 ounce glasses of water daily Referrals: Juanita Syed MD [ [facility] STAFF PHYSICIAN] - 3 days Guido Jarquin [Primary Care Provider] - 3 days Discharge Data Discharge Date/Time-TO BE ENTERED AT DEPARTURE: 01/09/24 15:26 HPI General Date/Time Provider Initiated Documentation: 01/09/24 10:55 . HPI Narrative: 73-year-old male presents with shortness of breath and cough for the past 4 days that is worsening. He has been treated for several COPD exacerbations over the course of the past several months. States the last was several weeks ago and he received steroids. He denies any fever or chills. He is not currently taking any inhalers other than albuterol for his COPD history. He stopped smoking in June of this year. Denies any fever or chills. Denies any calf pain or swelling, recent flights, surgeries, long drives or history of coagulopathy. Denies any hemoptysis. He thinks he felt a little bit better with the steroids. Related Data Home Medications Medication Instructions Recorded Confirmed Flonase Allergy Relief 50 9.9 ml NS BID PRN 03/15/18 01/09/24 mcg/actuation nasal spray,suspension (fluticasone propionate) ProAir HFA 90 mcg/actuation 2 puff inhalation Q4H PRN 03/15/18 01/09/24 aerosol inhaler (albuterol sulfate) triamcinolone acetonide 0.1 % 1 applic topical BID 06/09/22 01/09/24 topical cream magnesium oxide 400 mg PO DAILY 10/27/23 01/09/24 doxycycline monohydrate 100 mg 100 mg PO BID #20 caps 01/09/24 capsule magnesium 250 mg tablet 250 mg PO DAILY #14 tabs 01/09/24 omeprazole 20 mg tablet,delayed 20 mg PO DAILY 01/09/24 01/09/24 release prednisone 10 mg tablet 10 mg PO DIRECTED #30 tabs 01/09/24 prednisone 10 mg tablet 10 mg PO DIRECTED #30 tabs 01/09/24 umeclidinium 62.5 mcg/actuation 1 inh inhalation DAILY #30 ea 01/09/24 blister powder for inhalation (Incruse Ellipta) Previous Rx's Medication Instructions Recorded doxycycline monohydrate 100 mg 100 mg PO BID #20 caps 01/09/24 capsule magnesium 250 mg tablet 250 mg PO DAILY #14 tabs 01/09/24 prednisone 10 mg tablet 10 mg PO DIRECTED #30 tabs 01/09/24 prednisone 10 mg tablet 10 mg PO DIRECTED #30 tabs 01/09/24 umeclidinium 62.5 mcg/actuation 1 inh inhalation DAILY #30 ea 01/09/24 blister powder for inhalation (Incruse Ellipta) Allergies Allergy/AdvReac Type Severity Reaction Status Date / Time No Known Allergies Allergy Unverified 01/09/24 11:44 General Stated Complaint: Chest Pain JAGUAR: 3 Exam Narrative Exam Narrative: 73-year-old male alert and oriented, mild respiratory distress, pupils equal round reactive to light and accommodation, no scleral icterus, diminished lung sounds with wheezes bilaterally, normal cardiac rate rhythm, increased work of breathing, mild respiratory distress, no pallor, alert and oriented x 4, no peripheral edema, distal pulses intact, no tenderness to Course Vital Signs Vital signs: Vital Signs Temperature 36.6 C 01/09/24 10:56 Pulse 98 H 01/09/24 10:56 Respiratory Rate 22 01/09/24 10:56 Blood Pressure 137/96 H 01/09/24 10:56 Pulse Oximetry 96 01/09/24 10:56 Temperature 36.6 C 01/09/24 10:56 Pulse 98 H 01/09/24 10:56 Pulse 74 01/09/24 11:56 Respiratory Rate 28 H 01/09/24 11:56 Respiratory Effort Short of Breath 01/09/24 11:51 Respiratory Pattern Normal 01/09/24 11:38 Blood Pressure 137/96 H 01/09/24 10:56 Pulse Oximetry 96 01/09/24 10:56 Pain Level 8 01/09/24 10:56 Lab/Test Results Lab/Test Results: Laboratory Tests Range/Units 01/09/24 01/09/24 01/09/24 11:10 11:17 11:30 WBC (4.4-10.8) 10^3/uL 10.57 RBC (4.36-5.78) 10^6/uL 5.97 H Hgb (13.5-17.5) g/dL 18.4 H Hct (40.0-50.0) % 54.7 H MCV (80-95) fL 92 MCH (27.0-33.0) pg 30.8 MCHC (32.0-36.0) % 33.6 RDW (11.8-14.1) % 12.4 Plt Count (130-400) 10^3/uL 262 MPV (8.0-11.0) fL 10.9 Immature Gran % % 0.7 Neutrophils % % 77.1 Lymphocytes % % 13.2 Monocytes % % 7.5 Eosinophils % % 1.0 Basophils % % 0.5 Nucleated RBC % (0.0-0.3) % 0.0 Absolute Neutrophils (1.2-6.7) 10^3/uL 8.15 H Absolute Lymphocytes (1.2-3.4) 10^3/uL 1.40 Absolute Monocytes (0.1-0.8) 10^3/uL 0.79 Absolute Eosinophils (0.0-0.7) 10^3/uL 0.11 Absolute Basophils (0.0-0.2) 10^3/uL 0.05 VBG pH (7.31-7.41) 7.34 VBG pCO2 (41-51) mmHg 53 H VBG pO2 mmHg 24 VBG HCO3 (23-28) mmol/L 28 VBG Total CO2 (24-29) mmol/L 25 VBG O2 Saturation % 40 VBG Base Excess (-2-3) mmol/L 3 Sodium (136-145) mmol/L 140 Cancelled Potassium (3.5-5.1) mmol/L 3.8 Cancelled Chloride (98-107) mmol/L 102 Cancelled Carbon Dioxide (21.0-32.0) mmol/L 27.8 Cancelled Anion Gap (3-11) mmol/L 10.2 Cancelled BUN (7-18) mg/dL 26 H Cancelled Creatinine (0.70-1.30) mg/dL 1.4 H Cancelled Est GFR (CKD-EPI 2020) (mL/min/1.73m2) 53.07 Cancelled Glucose (74-106) mg/dL 151 H Cancelled Calcium (8.5-10.1) mg/dL 9.0 Cancelled Magnesium (1.8-2.4) mg/dL 1.6 L Total Bilirubin (0.2-1.0) mg/dL 0.7 Cancelled AST (15-37) U/L 12 L Cancelled ALT (16-63) U/L 30 Cancelled Alkaline Phosphatase (46-116) U/L 74 Cancelled Troponin I (< or =60) ng/L < 50 NT-Pro-B Natriuret Pep (<300) pg/mL 155 Total Protein (6.4-8.2) g/dL 7.7 Cancelled Albumin (3.4-5.0) g/dL 4.2 Cancelled COVID-19 Source Nasopharynx SARS-CoV-2 (PCR) (Negative) Negative Influenza Type A (PCR) (Negative) Negative Influenza Type B (PCR) (Negative) Negative RSV (PCR) (Negative) Negative Medical Decision Making 73-year-old male presenting with acute moderate respiratory distress intermittently for the past several months. Stop taking Advair secondary to affordability. Patient will likely need long-acting beta agonist and LAMA. CTA PE does not show evidence of acute abnormality per radiology interpretation and my review, noon nodule which patient will follow-up regarding. Denies feeling improvement after 3 DuoNebs some IV Solu-Medrol. Will start patient on antibiotics and a prolonged course of steroids of pulmonology referral and reinitiation of Ellipta.. Patient is dehydrated, will encourage fluid hydration and recheck of his creatinine fluids were given throughout this encounter, mag 1.6 will initiate p.o. magnesium. Patient is not ambulatory with oxygen saturation ranging between 95 to 96% in no acute respiratory distress and feeling symptomatically improved. Will initiate 12-day steroid taper and doxycycline to treat for COPD exacerbation. of note, patient would benefit from LAMA/LABA, unfortunately these medications are all very expensive and faby ffordable for the patient, will try to work with patient to find something more affordable. Patient discharged home in stable condition with stable vitals, will need close outpatient follow-up. Will need creatinine and magnesium rechecked. Quality:SDOH Health Related Social Needs: No Data to Display PFSH All Active Problems (Updated 10/27/23 @ 11:06 by Tracy Stephens RN) Weight loss (Acute) Smoking (Acute) Raynaud's phenomenon (Acute) Lung nodule (Acute) Encounter for screening for malignant neoplasm of colon (Acute) Dyspnea (Acute) Colorectal polyps (Acute ~09/20/18) Medical History (Updated 10/27/23 @ 11:06 by Tracy Stephens RN) Frostbite with tissue necrosis of foot Erectile dysfunction Depression GERD (gastroesophageal reflux disease) Elevated blood pressure reading in office without diagnosis of hypertension Neck pain COPD (chronic obstructive pulmonary disease) severe. 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
[2024-01-09 14:47] LABS: Troponin I < 50 ng/L (< or =60)
--- NOTE | 2024-01-09 15:16 | NUR.NOTE ---
Referral faxed to Pulmonology to establish care and to follow up with COPD Exacerbation as soon as possible. Faxed referral to Primary Care Provider for follow up to COPD Exacerbation sometime next week.
--- NOTE | 2024-01-13 14:16 | NUR.NOTE ---
Nursing Note:Pharmacy called asking if the patient's advair inhaler had been d/c'd. We did not have advair on his medlist, the only inhalers we have are his ProAir and Ellipta inhalers. This was told to the pharmacist who called and she said that she was going to reach out to his normal prescriber to see if she can find the answer.
== END 2024-01-09 15:26 | disposition home or self-care (01) ==
PROVIDERS: Emergency Provider Physician Assistant; PCP Family Medicine
DX: R07.89 Other chest pain (principal); J44.9 Chronic obstructive pulmonary disease, unspecified; R94.31 Abnormal electrocardiogram [ECG] [EKG]; E78.5 Hyperlipidemia, unspecified; Z87.891 Personal history of nicotine dependence
CPT/HCPCS: 71275; 80053; 82805; 87637; 93005; 94640; 96361; 96374; 99285; 83735; 83880; 84484; 85025; 93010; 99284; J2919; J3490; J7620

== ENCOUNTER → 2024-01-21 10:39 | Outpatient (BNVA) | payer OTHER, SELFPAY | PROVIDERS: PCP Family Medicine; Referring Provider Family Medicine; Visit Provider Physician Assistant Surgical | DX: J44.9 Chronic obstructive pulmonary disease, unspecified (principal) | CPT/HCPCS: 99215 ==

== ENCOUNTER 2024-02-19 02:07 | Outpatient (CLI) | payer OTHER, SELFPAY ==
--- OUTSIDE RECORDS SUMMARY | 2024-02-19 02:28 | XMS_ITS | Encounter Summary ---
Author Organization [facility] Address [address] [place] [address] Care Team Providers Care Fluid Pump Operator Name Role Phone Pritesh Chatman MD Primary Care Provider [phone] Encounter Details Date Type Department Care Team (Late st Contact Info) Description 01/26/2019 Historical Results Only [facility] [place] [address] [place], [place] [address] Cynthia Ayon MD [address] [place] [phone] Social History Tobacco Use Types Packs/Day Years Used Date Smoking Tobacco: Never Assessed Sex and Gender Information Value Date Recorded Sex Assigned at Not on file Gender Identity Not on file Sexual Orientation Not on file documented as of this encounter Plan of Treatment Not on file documented as of this encounter Procedures Procedure Name Priority Date/Time Associated Diagnosis Comments ANAEROBIC CULTURE - [facility] Routine 01/26/2019 11:47 EDT FUNGAL CULTURE - OTHER SITES - [facility] Routine 01/26/2019 11:47 EDT SURGICAL PATHOLOGY Routine 01/26/2019 documented in this encounter Results * FUNGAL CULTURE - OTHER [facility] - [facility] (01/26/2019 11:47 EDT) FUNGUS ISOLATED? - [facility] NO FUNGI ISOLATED, FIRST READING 02/23/2019 8:[address] [facility] FUNGUS ISOLATED? - [facility] NO FUNGI ISOLATED AT 4 WEEKS 02/23/2019 8:[address] [facility] 01/26/2019 11:4 7 EDT 01/26/2019 12:[address] [facility] - 02/23/2019 8:35 EDT COMMENTS: RIGHT FOOT 2ND TOE CLEAN END OF BONE Does PT Have a Latex Allergy? NO Cynthia Ayon MD MICROBIOLOGY - GENERAL ORDERABLES [facility] * ANAEROBIC CULTURE - [facility] (01/26/2019 11:47 EDT) Anaerobe Culture 01/29/2019 10:[address] [facility] Anaerobe Culture NO ANAEROBES ISOLATED IN 48 HOURS 01/29/2019 10:[address] [facility] Anaerobe Culture TISSUE SUBMITTED-RIGHT FOOT SECOND TOE CLEAN END OF BONE Result called to LUIZA GORDON IN SDS 01/26/19 1324: Result called by MARCIA 01/30/2019 12:[address] [facility] BACTERIA SEEN - [facility] NO 01/30/2019 12:[address] [facility] WBC NO 01/30/2019 12:[address] [facility] PTH-Related Peptide STAPHYLOCOCCUS SP COAG NEG 01/30/2019 7:[address] [facility] QUANT - [facility] BROTH ONLY 01/30/2019 7:[address] [facility] 01/26/2019 11:4 7 EDT 01/26/2019 12:29 EDT Comment:R2T Narrative [facility] - 01/30/2019 12:25 EDT COMMENTS: RIGHT FOOT 2ND TOE CLEAN END OF BONE Does PT Have a Latex Allergy? NO Organism Antibiotic Method Susceptibility Staphylococcus sp coag neg Azithromycin GRAM POSITIVE SUSCEPTIBILITY - [facility] Susceptible Staphylococcus sp coag neg Clindamycin GRAM POSITIVE SUSCEPTIBILITY - [facility] <=0.25: Susceptible Staphylococcus sp coag neg Cefpodoxime GRAM POSITIVE SUSCEPTIBILITY - [facility] Susceptible Staphylococcus sp coag neg Cefazolin GRAM POSITIVE SUSCEPTIBILITY - [facility] Susceptible Staphylococcus sp coag neg Erythromycin GRAM POSITIVE SUSCEPTIBILITY - [facility] <=0.25: Susceptible Staphylococcus sp coag neg Levofloxacin GRAM POSITIVE SUSCEPTIBILITY - [facility] <=0.12: Susceptible Staphylococcus sp coag neg Oxacillin GRAM POSITIVE SUSCEPTIBILITY - [facility] <=0.25: Susceptible Staphylococcus sp coag neg Trimethoprim-Sulfame thoxazole GRAM POSITIVE SUSCEPTIBILITY - [facility] 20: Susceptible Staphylococcus sp coag neg Tetracycline GRAM POSITIVE SUSCEPTIBILITY - [facility] <=1: Susceptible Staphylococcus sp coag neg Vancomycin GRAM POSITIVE SUSCEPTIBILITY - [facility] 1: Susceptible Comment:See Reason(s) for St alejandro Cynthia Ayon MD MICROBIOLOGY - GENERAL ORDERABLES [facility] * SURGICAL PATHOLOGY (01/26/2019) 01/26/2019 01/26/2019 12: [address] [facility] - 02/01/2019 12:31 EDT ----- ------- Name: SHANTAL CORDOVA ? : 50 ?Age/Sex: 68/M ?Unit#: [id number] ? Loc: SDS ? Status: DEP SDC ?? Reg Date: 01/26/19 ? Pt.Phone Number: ? ----- ------- Specimen: [id number] ? STATUS: SOUT ?Spec Date:01/26/19 ? Physician Copies: ?Cynthia Ayon MD ? Tissues: A ?? 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 Guido Jarquin MD ? CPT: 74349 ?? Units: ??1 ? 67800 ? 1 ?FINAL DIAGNOSIS ? TOE, RIGHT SECOND, AMPUTATION; ? - Viable bone with patchy neutrophilic infiltrate admixed with chronic ? inflammatory cells consistent with mild acute osteomyelitis. ? - Mixed inflammatory infiltrate of skin and soft tissue including scattered ? neutrophils. ? - Proximal surgical resection margin is negative for active inflammation. ? GROSS DESCRIPTION ? Received in formalin labeled Shantal Figueroa 2nd toe is an amputated ? toe with a length of 3.5 cm, proximal diameter of 1.7 cm and distal diameter of ? 2.4 cm. ??The skin over the toe appears intact except for a pin head defect at ? the distal tip of the toe measuring 0.2 cm in greatest diameter. The nail is ? thickened, brown-yellow. ??Resection amputation margin, soft tissue and bone is ? grossly viable appearing. ??The distal toe skin lesion is submitted in cassette ? #1. Bone directly beneath the skin lesion is sampled and submitted in cassette ? #2 following decalcification. The proximal surgical margin is submitted in ? cassette #3 [id number] decalcification. ?? PREOP DX/CLINICAL HISTORY ?RIGHT 2ND TOE BETHANIE Signed ____(signature on file)____ Andria Jeffries M.D. 02/01/19 ? By the signature above, the attending physician certifies that he/she has personally conducted a gross and/or microscopic examination of the described specimens and rendered or confirmed the above diagnosis. Test Performed by [facility], [address] [place] [id number] Smoking Pipe Mounter: Gale Nunn MD PHD ----- ------- Cynthia Ayon MD PATHOLOGY ORDER [facility] documented in this encounter Visit Diagnoses Not on filedocumented in this encounter Care Teams Fluid Pump Operator Relationship Specialty Start Date End Date Pritesh Chatman MD [address] [address] PCP - General 11/07/16 documented as of this encounter
--- OUTSIDE RECORDS SUMMARY | 2024-02-19 02:28 | XMS_ITS | Encounter Summary ---
Author Organization [facility] Address [address] [place] [address] Care Team Providers Care Child And Family Services Worker Name Role Phone Pritesh Chatman MD Primary Care Provider [phone] Reason for Visit * Reason Onset Date Comments Follow-up 10/27/2019 CT chest results per provider Encounter Details Date Type Department Care Team (Late st Contact Info) Description 10/27/2019 Telephone [facility] Pulmonology & Critical Care - [address] [address] Christophe Mccray MD [address] [place] [address], [address] [place] [phone] Follow-up (CT chest results per provider) Social History Tobacco Use Types Packs/Day Years Used Date Smoking Tobacco: Former Cigarettes 1 50 0 12/25/1968 - 12/25/2018 Smokeless Tobacco: Never Sex and Gender Information Value Date Recorded Sex Assigned at Not on file Gender Identity Not on file Sexual Orientation Not on file documented as of this encounter Miscellaneous Notes * Telephone Encounter - Wes Lino RT - 10/27/2019 0838 EDT Images from the original note were not included. S: CT chest results R: Let him know provider's thoughts below: Christophe Mccray MD Crego, Scott RT ?? Hi Wes. ??I looked at the scan and the report. ??There is no sign of cancer; there is a not-worrisome nodule only. ??The scan is otherwise normal.Just to be sure on the nodule, the radiologist recommends another scan in 6 months. ??Would you let him know? Thanks, Christophe Murguia will ask his PCP to re-order chest CT in 6 months and thanked me for the call back. documented in this encounter Plan of Treatment Not on file documented as of this encounter Visit Diagnoses Not on filedocumented in this encounter Care Teams Child And Family Services Worker Relationship Specialty Start Date End Date Pritesh Chatman MD [address] [place] [id number] PCP - General 11/07/16 documented as of this encounter
--- OUTSIDE RECORDS SUMMARY | 2024-02-19 02:28 | XMS_ITS | Encounter Summary ---
Author Organization [facility] [place] [address] Care Team Providers Care Ride Mechanic Name Role Phone Ta Meier MD Primary Care Provider [phone] Encounter Details Date Type Department Care Team (Late st Contact Info) Description 04/27/2014 [place] [id number] Ta Meier MD [address] [place] [address] Social History Tobacco Use Types Packs/Day Years Used Date Smoking Tobacco: Never Assessed Sex and Gender Information Value Date Recorded Sex Assigned at Not on file Gender Identity Not on file Sexual Orientation Not on file documented as of this encounter Plan of Treatment Not on file documented as of this encounter Visit Diagnoses Not on filedocumented in this encounter Care Teams Ride Mechanic Relationship Specialty Start Date End Date Ta Meier MD [address] [place], [place] [address] PCP - General 04/27/14 07/06/18 documented as of this encounter
--- OUTSIDE RECORDS SUMMARY | 2024-02-19 02:28 | XMS_ITS | Encounter Summary ---
Author Organization [facility] Address [address] [place] [address] Care Team Providers Care Tool And Die Designer Name Role Phone Pritesh Chatman MD Primary Care Provider [phone] Reason for Visit * Reason Comments Telemedicine Phone Call Chronic Obstructive Pulmonary Disease Encounter Details Date Type Department Care Team (Late st Contact Info) Description 10/25/2019 14:00 EDT Telemedicine [facility] Pulmonology & Critical Care - [address] [address] Christophe Mccray MD [address] [place] [address], [address] [place] [phone] Chronic obstructive pulmonary disease, unspecified COPD type ([facility]) (Primary Dx) Social History Tobacco Use Types Packs/Day Years Used Date Smoking Tobacco: Former Cigarettes 1 50 0 12/25/1968 - 12/25/2018 Smokeless Tobacco: Never Sex and Gender Information Value Date Recorded Sex Assigned at Not on file Gender Identity Not on file Sexual Orientation Not on file documented as of this encounter Patient Instructions * Patient Instructions* Christophe Mccray MD - 10/25/2019 14:00 EDT Continue Symbicort and Spiriva. Will switch Combivent to albuterol as rescue medication (Proair brand name requested). documented in this encounter Ordered Prescriptions Prescription Sig Dispensed Refills Start Date End Da te albuterol (PROAIR HFA) 90 mcg/actuation inhaler Inhale 2 Puffs as directed every 4 to 6 hours as needed for Wheezing. Max: 12 puffs/day. 1 Inhaler 11 10/25/2019 documented in this encounter Progress Notes * Christophe Mccray MD - 10/25/2019 1400 EDT TELEMEDICINE VIDEO VISIT Today's visit was provided through telemedicine video conferencing: The location of the patient : Home. The location of the provider: Home The following staff and their role did participate in today's encounter visit: Christophe Mccray MD The concept of ???Telemedicine?? has been described to the patient. Patient has been informed of the anticipated benefits and possible risks. Patient understands the information provided regarding telemedicine, has had the opportunity to ask questions about this information, and all questions havebeen answered to patient???s satisfaction. Patient consents for the use of telemedicine in his/her medical care and authorizes the transmission of any relevant medical information to providers and their staff involved in patient???s medical or mental health care. At the last visit in May 2019, patient was recommended to continue Symbicort 160/4.5 and Spiriva, using Combivent for rescue, and he has been compliant with this. He has daily XIAO but no change; daily mild cough but no change; no acute symptoms including fever. No nocturnal awakenings due to SOB. 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 Using Combiventfor rescue a few times a week but he feels it is no better than albuterol, and is more expensive. The rest of his 10 point ROS is negative. Impression: Stable status. Plan: continue same meds. F/U in May with jj at that time (1 year since last). Will d/c Combivent and Rx albuterol at patient's request. I spent a total of 20 minutes with Shantal Lowe today and 10 minutes of that time was spent in counseling and coordination of care as described in the progress note. Christophe Mccray MD documented in this encounter Plan of Treatment Not on file documented as of this encounter Visit Diagnoses Diagnosis Chronic obstructive pulmonary disease, unspecified COPD type ([facility])- Primary documented in this encounter Discontinued Medications Medication Sig Discontinue Reason Start Date End Da te albuterol 90 mcg/actuation inhaler Inhale 2 Puffs as directed every 6 hours as needed for Wheezing. 10/25/2019 documented as of this encounter Care Teams Tool And Die Designer Relationship Specialty Start Date End Date Pritesh Chatman MD [address] [address] PCP - General 11/07/16 documented as of this encounter
--- OUTSIDE RECORDS SUMMARY | 2024-02-19 02:28 | XMS_ITS | Clinical Summary ---
Author Organization [facility] Address [address] [place] [address] Care Team Providers Care Optics Technical Officer Name Role Phone Pritesh Chatman MD Primary Care Provider [phone] Allergies No known active allergies Medications Medication Sig Dispensed Refills Start Date End Date Status Omeprazole 20 mg tablet,delayed release (DR/EC) Take 20 mg by mouth daily. Active simvastatin (ZOCOR) 40 mg tablet Take 40 mg by mouth every evening. Active ergocalciferol, vitamin D2, (VITAMIN D ORAL) Take by mouth. Active acetylcysteine (V-LHHFQW-Z-CYSTEINE MISC) 600 mg by misc (non-drug; combo route) route. Active ipratropium-albutero l (COMBIVENT RESPIMAT) 20-100 mcg/actuation inhaler Inhale 1 Puff as directed every 4 hours as needed for Wheezing. 1 Inhaler 3 06/21/2019 Active budesonide-formotero l HFA (SYMBICORT) 80-4.5 mcg/actuation HFA aerosol inhaler inhaler Inhale 2 Puffs as directed 2 times daily. 3 Inhaler 3 06/21/2019 Active tiotropium (SPIRIVA WITH HANDIHALER) 18 mcg inhalation capsule Inhale 1 Cap as directed daily. 1 Box 11 06/21/2019 Active albuterol (PROAIR HFA) 90 mcg/actuation inhaler Inhale 2 Puffs as directed every 4 to 6 hours as needed for Wheezing. Max: 12 puffs/day. 1 Inhaler 11 10/25/2019 Active Social History Tobacco Use Types Packs/Day Years Used Date Smoking Tobacco: Former Cigarettes 1 50 0 12/25/1968 - 12/25/2018 Smokeless Tobacco: Never Interpersonal Safety Answer Date Record ed Physically Hurt Never 02/27/2020 Verbally Threaten Not on file 02/27/2020 Sex and Gender Information Value Date Recorded Sex Assigned at Not on file Gender Identity Not on file Sexual Orientation Not on file Obstetrics History Last Filed Vital Signs Vital Sign Reading Time Taken Comments Blood Pressure 120/76 06/21/2019 1448 EST Pulse 63 06/21/2019 1448 EST Temperature 36.3 ??C (97.3 ??F) 06/21/2019 1448 EST Respiratory Rate 16 06/21/2019 1448 EST Oxygen Saturation 95% 06/21/2019 1448 EST Inhaled Oxygen Concentration - - Weight 92.5 kg (203 lb 14.8 oz) 06/21/2019 1448 EST Height 179.6 cm (5' 10.71) 06/21/2019 1448 EST Body Mass Index 28.68 06/21/2019 1448 EST Plan of Treatment Health Maintenance Due Date Last Done Comments Hepatitis C Screen 1950 RSV Immunization ( o r 60+ Years) (1 - 1-dose 60+ series) 2010 Fall Risk Screening 2015 COVID-19 Vaccine (2022-24 season) 2023 Care Teams Optics Technical Officer Relationship Specialty Start Date End Date Pritesh Chatman MD [address] [address] PCP - General 11/07/16
--- OUTSIDE RECORDS SUMMARY | 2024-02-19 02:28 | XMS_ITS | Encounter Summary ---
Author Organization [facility] Address [address] [place] [address] Care Team Providers Care Safety And Health Manager Name Role Phone Pritesh Chatman MD Primary Care Provider [phone] Reason for Visit * Reason Onset Date Comments Coordination Of Care 08/01/2019 Encounter Details Date Type Department Care Team (Late st Contact Info) Description 08/01/2019 Telephone [facility] Pulmonology & Critical Care - [address] [id number] Christophe Mccray MD [address] [facility], [address] [place] [address] Coordination Of Care Social History Tobacco Use Types Packs/Day Years Used Date Smoking Tobacco: Former Cigarettes 1 50 0 12/25/1968 - 12/25/2018 Smokeless Tobacco: Never Sex and Gender Information Value Date Recorded Sex Assigned at Not on file Gender Identity Not on file Sexual Orientation Not on file documented as of this encounter Miscellaneous Notes * Telephone Encounter - Wes Lino RT - 08/05/2019 1226 EST R: asked PCP if he would order CT chest, and relayed PFT instruction to Mynor to have them rescheduled for sometime around November at [facility]. Left my chart message as home number listed comes back as being disconnected. * Telephone Encounter - Christophe Mccray MD - 08/04/2019 1452 EST Leon Harvey. We wanted to see him in 6 months from last visit with repeat jj to see how he is doing. If he had recent jj at [facility] within the last month or so than that would be fine. Also, he had indicated he would prefer to get low dose CT closer to home ([facility]), but we can order it here if he would prefer. Christophe Dias * Telephone Encounter - Armando Nunn - 08/01/2019 1007 EST Per Harriett, got letter regarding PFT at [facility]. Per Harriett, patient already got PFT does not feel he needs another one. Per Harriett, is also having a hard time getting a low dose CT scan scheduled. documented in this encounter Plan of Treatment Not on file documented as of this encounter Visit Diagnoses Not on filedocumented in this encounter Care Teams Safety And Health Manager Relationship Specialty Start Date End Date Pritesh Chatman MD [address] [place] [address] PCP - General 11/07/16 documented as of this encounter
--- OUTSIDE RECORDS SUMMARY | 2024-02-19 02:28 | XMS_ITS | Encounter Summary ---
Author Organization [facility] Address [address] [place] [address] Care Team Providers Care Travel Assistant Name Role Phone Pritesh Chatman MD Primary Care Provider [phone] Reason for Referral * (Routine) - Authorization Not Required Specialty Diagnoses / Procedures [facility]erred To Contact Diagnoses Chronic obstructive pulmonary disease, unspecified COPD type (HCC-CMS) Procedures PULMONARY FUNCTION TESTING Christophe Mccray MD [address] [place] [phone] Referral ID Status Reason Start Date Expiration Date Visits Requested Visits Authorized [id number] Authorization Not Required 9 1 1 Encounter Details Date Type Department Care Team (Late st Contact Info) Description 2019 Orders Only [facility] Pulmonology & Critical Care - [address] [address] Christophe Mccray MD [address] [place] [phone] Chronic obstructive pulmonary disease, unspecified COPD type (HCC-CMS) (Primary Dx) Social History Tobacco Use Types [...] Chronic obstructive pulmonary disease, unspecified COPD type ([facility]CC-[facility])- Primary documented in this encounter Orders PFT Count Last Ordered Date First Orde red Date PULMONARY FUNCTION TESTING 1 2019 documented in this encounter Care Teams Travel Assistant Relationship Specialty Start Date End Date Pritesh Chatman MD [address] [address] PCP - General 11/07/16 documented as of this encounter
--- OUTSIDE RECORDS SUMMARY | 2024-02-19 02:28 | XMS_ITS | Encounter Summary ---
Author Organization [facility] Address [address] [place] [address] Care Team Providers Care Linux Network Systems Administrator Name Role Phone Pritesh Chatman MD Primary Care Provider [phone] Encounter Details Date Type Department Care Team (Latest Contact Info) Description 09/20/2018 11:23 EST - 09/20/2018 23:59 EST Hospital Encounter [address] [address] Unknown, Provider, Discharge Disposition: Home or Self Care Social History Tobacco Use Types Packs/Day Years Used Date Smoking Tobacco: Never Assessed Sex and Gender Information Value Date Recorded Sex Assigned at Not on file Gender Identity Not on file Sexual Orientation Not on file documented as of this encounter Discharge Disposition Disposition Code Departure Means Destination Home or Self Penitentiary documented in this encounter Plan of Treatment Not on file documented as of this encounter Visit Diagnoses Not on filedocumented in this encounter Care Teams Linux Network Systems Administrator Relationship Specialty Start Date End Date Pritesh Chatman MD [address] [facility] [address] [place] [address] PCP - General 11/07/16 documented as of this encounter
--- OUTSIDE RECORDS SUMMARY | 2024-02-19 02:28 | XMS_ITS | Encounter Summary ---
Author Organization [facility] Address [address] [place] [address] Care Team Providers Care Buttermaker Name Role Phone Pritesh Chatman MD Primary Care Provider [phone] Encounter Details Date Type Department Care Team (Late st Contact Info) Description 12/06/2018 Historical Results Only [facility] Radiology Results [address] [place] [address] Yoko Teague, [facility] [address] [place] [address] Social History Tobacco Use Types Packs/Day Years Used Date Smoking Tobacco: Never Assessed Sex and Gender Information Value Date Recorded Sex Assigned at Not on file Gender Identity Not on file Sexual Orientation Not on file documented as of this encounter Plan of Treatment Not on file documented as of this encounter Procedures Procedure Name Priority Date/Time Associated Diagnosis Comments XR TOE RIGHT 2 OR MORE VIEWS 12/06/2018 15:07 EDT documented in this encounter Results * XR TOE RIGHT 2 OR MORE VIEWS (12/06/2018 15:07 EDT) Anatomical Region Laterality Modality Lower Extremities Right Other 12/06/2018 15:0 7 EDT Narrative 12/06/2018 15:10 EDT ? EXAM: RADIOLOGY/TOE(S) RIGHT ?EX. D/ (1421) ? CLINICAL INFORMATION: ? M79.674 PAIN IN TOE OF RIGHT FOOT ? TOE(S) RIGHT ? Signs and Symptoms/Comments: ??M79.674 PAIN IN TOE OF RIGHT FOOT ? Comparison: None ? FINDINGS: ? Right 2nd toe: 3 views were performed. The soft tissues over the ? distal 2nd toe are swollen and irregular, suspicious for ulceration. ? Osteolysis of the tuft of the 2nd distal phalanx is suspicious for ? underlying osteomyelitis, best appreciated on the lateral view. No ? acute fracture is visible. Mild degenerative changes are present in ? the visible forefoot. No unexpected radiopaque foreign body is ? identified. ? IMPRESSION: ? Probable distal 2nd toe ulcer with findings suspicious for ? osteomyelitis of the 2nd distal phalanx tuft. ? REPORT SIGNED IN OTHER VENDOR SYSTEM 12/06/2018 ?Reported By: Kranthi Baldwin MD ? CC: ? Transcribed Date/Time: 12/06/2018 (1510) ? Supervisor Lending Activities: ? Printed Date/Time: 04/13/2019 (1956) ? PAGE 1 ? Signed Report ? Procedure Note Kranthi Baldwin MD, MD - 05/31/2019 EXAM: RADIOLOGY/TOE(S) RIGHT EX. D/ (1421) CLINICAL INFORMATION: M79.674 PAIN IN TOE OF RIGHT FOOT TOE(S) RIGHT Signs and Symptoms/Comments: M79.674 PAIN IN TOE OF RIGHT FOOT Comparison: None FINDINGS: Right 2nd toe: 3 views were performed. The soft tissues over the distal 2nd toe are swollen and irregular, suspicious forulceration. Osteolysis of the tuft of the 2nd distal phalanx is suspicious for underlying osteomyelitis, best appreciated on the lateral view. No acute fracture is visible. Mild degenerative changes are present in the visible forefoot. No unexpected radiopaque foreign body is identified. IMPRESSION: Probable distal 2nd toe ulcer with findings suspicious for osteomyelitis of the 2nd distal phalanx tuft. REPORT SIGNED IN OTHER VENDOR SYSTEM 12/06/2018 Reported By: Kranthi Baldwin MD CC: Transcribed Date/Time: 12/06/2018 (1509) Supervisor Lending Activities: Printed Date/Time: 04/13/2019 (1955) PAGE 1 Signed Report Yoko Teague DPM IMG DIAGNOSTIC DAMIEN GING ORDERABLES documented in this encounter Visit Diagnoses Not on filedocumented in this encounter Care Teams Buttermaker Relationship Specialty Start Date End Date Pritesh Chatman MD [address] [address] PCP - General 11/07/16 documented as of this encounter
--- OUTSIDE RECORDS SUMMARY | 2024-02-19 02:28 | XMS_ITS | Referral Summary ---
Author Organization [facility] Address [address] [place] [address] Care Team Providers Care Finance Manager Name Role Phone Pritesh Chatman MD Primary Care Provider [phone] Allergies No known active allergies Medications Medication Sig Dispensed Refills Start Date End Date Status Omeprazole 20 mg tablet,delayed release (DR/EC) Take 20 mg by mouth daily. Active simvastatin (ZOCOR) 40 mg tablet Take 40 mg by mouth every evening. Active ergocalciferol, vitamin D2, (VITAMIN D ORAL) Take by mouth. Active acetylcysteine (J-NANKYO-R-CYSTEINE MISC) 600 mg by misc (non-drug; combo [...] on file Sexual Orientation Not on file Last Filed Vital Signs Vital Sign Reading [...] 28.68 06/21/2019 1448 EST Plan of Treatment Not on file Care Teams Finance Manager Relationship Specialty Start Date End Date Pritesh Chatman MD [address] [place] [address] PCP - General 11/07/16
--- OUTSIDE RECORDS SUMMARY | 2024-02-19 02:28 | XMS_ITS | Encounter Summary ---
Author Organization [facility] Address [address] [place] [address] Care Team Providers Care Process Architect Name Role Phone Pritesh Chatman MD Primary Care Provider [phone] Encounter Details Date Type Department Care Team (Latest Contact Info) Description 12/06/2018 7:18 EDT - 12/06/2018 23:59 EDT Hospital Encounter [facility] [address] [place] [address] Unknown, ProviderMD Discharge Disposition: Auto Discharge Social History Tobacco Use Types Packs/Day Years Used Date Smoking Tobacco: Never Assessed Sex and Gender Information Value Date Recorded Sex Assigned at Not on file Gender Identity Not on file Sexual Orientation Not on file documented as of this encounter Discharge Disposition Disposition Code Departure Means Destination Auto Discharge Home documented in this encounter Plan of Treatment Not on file documented as of this encounter Visit Diagnoses Not on filedocumented in this encounter Care Teams Process Architect Relationship Specialty Start Date End Date Pritesh Chatman MD 4 [facility] 6 [place] [address] PCP - General 11/07/16 documented as of this encounter
--- OUTSIDE RECORDS SUMMARY | 2024-02-19 02:28 | XMS_ITS | Encounter Summary ---
Author Organization [facility] Address [address] [place] [address] Care Team Providers Care Tape Sewer Name Role Phone Pritesh Chatman MD Primary Care Provider [phone] Encounter Details Date Type Department Care Team (Latest Contact Info) Description 06/21/2019 13:47 EST - 06/21/2019 23:59 EST Hospital Encounter [facility] Pulmonary Function Lab - [facility] [address] [place], [place] [address] Chronic obstructive pulmonary disease, unspecified COPD type ([facility]) Social History Tobacco Use Types Packs/Day Years Used Date Smoking Tobacco: Former Cigarettes 1 50 0 12/25/1968 - 12/25/2018 Smokeless Tobacco: Never Sex and Gender Information Value Date Recorded Sex Assigned at Not on file Gender Identity Not on file Sexual Orientation Not on file documented as of this encounter Medications at Time of Discharge Medication Sig Dispensed Refills Start Date End Date acetylcysteine (D-DXERSV-A-CYSTEINE MISC) 600 mg by misc (non-drug; combo route) route. budesonide-formoterol HFA (SYMBICORT) 80-4.5 mcg/actuation HFA aerosol inhaler inhaler Inhale 2 Puffs as directed 2 times daily. 3 Inhaler 3 06/21/2019 ergocalciferol, vitamin D2, (VITAMIN D ORAL) Take by mouth. ipratropium-albuterol (COMBIVENT RESPIMAT) 20-100 mcg/actuation inhaler Inhale 1 Puff as directed every 4 hours as needed for Wheezing. 1 Inhaler 3 06/21/2019 Omeprazole 20 mg tablet,delayed release (DR/EC) Take 20 mg by mouth daily. simvastatin (ZOCOR) 40 mg tablet Take 40 mg by mouth every evening. tiotropium (SPIRIVA WITH HANDIHALER) 18 mcg inhalation capsule Inhale 1 Cap as directed daily. 1 Box 11 06/21/2019 albuterol 90 mcg/actuation inhaler Inhale 2 Puffs as directed every 6 hours as needed for Wheezing. 10/25/2019 documented as of this encounter Progress Notes * Fadia Nunn RT - 06/21/2019 1446 EST Testing was performed and recorded in [employer]. See complete report in scanned documents. documented in this encounter Plan of Treatment Not on file documented as of this encounter Procedures Procedure Name Priority Date/Time Associated Diagnosis Comments PULMONARY FUNCTION REPORT - SCANNED 06/21/2019 17:46 EST PULMONARY FUNCTION REPORT - SCANNED 06/21/2019 14:46 EST documented in this encounter Results * PULMONARY FUNCTION REPORT - SCANNED (06/21/2019 17:46 EST) 06/21/2019 17:4 6 EST Scan 2 Nurse Outreach Case Manager PROCEDURE/MINOR SAJI GICAL ORDERABLES * PULMONARY FUNCTION REPORT - SCANNED (06/21/2019 14:46 EST) 06/21/2019 14:4 6 EST Scan 2 Nurse Outreach Case Manager PROCEDURE/MINOR SAJI GICAL ORDERABLES documented in this encounter Visit Diagnoses Diagnosis Chronic obstructive pulmonary disease, unspecified COPD type ([facility]) documented in this encounter Administered Medications Inactive Administered Medications - up to 3 most recent administrations Medication Order MAR Action Action Date Dose Rate Site albuterol inhaler 2 Puff 2 Puff, inhalation, Once (Without Time Specified), 1 dose, Starting on Thu06/21/19 at 1515, Until Thu06/21/19 at 1446, Routine Given 06/21/2019 14:46 EST 2 Puffs documented in this encounter Orders Medications Ordered That Lazaro ht Not Have Been Administered Count Last Ordered Date First Ordered Date albuterol inhaler 2 Puff 1 06/21/2019 documented in this encounter Care Teams Tape Sewer Relationship Specialty Start Date End Date Pritesh Chatman MD [address] [address] PCP - General 11/07/16 documented as of this encounter
--- OUTSIDE RECORDS SUMMARY | 2024-02-19 02:28 | XMS_ITS | Encounter Summary ---
Author Organization [facility] Address [address] [place] [address] Care Team Providers Care Dental Appliance Repairer Name Role Phone Pritesh Chatman MD Primary Care Provider [phone] Encounter Details Date Type Department Care Team (Late st Contact Info) Description 01/19/2019 Orders Only [facility] Pulmonology & Critical Care - [facility] [address] [place], [place] [address] Wes Lino, RT Chronic obstructive pulmonary disease, unspecified COPD type (HCC-CMS) (Primary Dx) Social History Tobacco Use Types Packs/Day Years Used Date Smoking Tobacco: Never Assessed Sex and Gender Information Value Date Recorded Sex Assigned at Not on file Gender Identity Not on file Sexual Orientation Not on file documented as of this encounter Plan of Treatment Scheduled Orders Name Type Priority Associated Diagnoses Orde r Schedule SPIROMETRY WITH BRONCHODILATOR PFT Routine Chronic obstructive pulmonary disease, unspecified COPD type (HCC-CMS) Ordered: 01/19/2019 documented as of this encounter Visit Diagnoses Diagnosis Chronic obstructive pulmonary disease, unspecified COPD type (HCC-CMS)- Primary documented in this encounter Care Teams Dental Appliance Repairer Relationship Specialty Start Date End Date Pritesh Chatman MD [address] [place] [address] [place] [address] PCP - General 11/07/16 documented as of this encounter
--- OUTSIDE RECORDS SUMMARY | 2024-02-19 02:28 | XMS_ITS | Encounter Summary ---
Author Organization [facility] Address [address] [place] [address] Care Team Providers Care Tennis Court Attendant Name Role Phone Pritesh Chatman MD Primary Care Provider [phone] Reason for Visit * Reason Onset Date Comments Follow-up 08/09/2019 jj for [facility] Encounter Details Date Type Department Care Team ([facility] st Contact Info) Description 08/09/2019 Telephone [facility] Pulmonology & Critical Care - [address] [id number] Christophe Mccray MD [address] [facility], Level 5 [place] [phone] Follow-up (jj for [facility]) Social History Tobacco Use Types Packs/Day Years Used Date Smoking Tobacco: Former Cigarettes 1 50 0 12/25/1968 - 12/25/2018 Smokeless Tobacco: Never Sex and Gender Information Value Date Recorded Sex Assigned at Not on file Gender Identity Not on file Sexual Orientation Not on file documented as of this encounter Miscellaneous Notes * Telephone Encounter - Wes Lino RT - 08/09/2019 1551 EST S: Evette documented in this encounter Plan of Treatment Not on file documented as of this encounter Visit Diagnoses Diagnosis SOB (shortness of breath)- Primary Shortness of breath documented in this encounter Care Teams Tennis Court Attendant Relationship Specialty Start Date End Date Pritesh Chatman MD [address] [facility] 6 [place] [address] PCP - General 11/07/16 documented as of this encounter
--- OUTSIDE RECORDS SUMMARY | 2024-02-19 02:28 | XMS_ITS | Encounter Summary ---
Author Organization [facility] Address [address] [place] [address] Care Team Providers Care Pizza Chef Name Role Phone Pritesh Chatman MD Primary Care Provider [phone] Reason for Referral * (Routine) - Authorization Not Required Specialty Diagnoses / Procedures Referred By Contac t Referred To Contact Diagnoses Chronic obstructive pulmonary disease, unspecified COPD type ([facility]) Procedures PULMONARY FUNCTION TESTING Christophe Mccray MD [address] [place] [address] [address] [place] [address] Referral ID Status Reason Start Date Expiration Date Visits Requested Visits Authorized [id number] Authorization Not Required 9 1 1 Reason for Visit * Reason Comments Exertional Dyspnea * Consult (Routine) - Closed Specialty Diagnoses / Procedures Referred By Contac t Referred To Contact Pulmonary Disease Diagnoses COPD (chronic obstructive pulmonary disease) ([facility]) Doris Pickens, MAIN LINE ASSEMBLER [address] [place] [address] [place] [address] [place] [address] Referral ID Status Reason Start Date Expiration Date Visits Re quested Visits Authorized [id number] Closed 1 1 Encounter Details Date Type Department Care Team (Late st Contact Info) Description 06/21/2019 15:00 EST Office Visit [facility] Pulmonology & Critical Care - [facility] [address] [place] [address] Christophe Mccray MD 111 [facility], Level [address] [place] [phone] Chronic obstructive pulmonary disease, unspecified COPD type ([facility]) (Primary Dx) Social History Tobacco Use Types Packs/Day Years Used Date Smoking Tobacco: Former Cigarettes 1 50 0 12/25/1968 - 12/25/2018 Smokeless Tobacco: Never Sex and Gender Information Value Date Recorded Sex Assigned at Not on file Gender Identity Not on file Sexual Orientation Not on file documented as of this encounter Last Filed Vital Signs Vital Sign Reading [...] Body Mass Index 28.68 06/21/2019 1448 EST documented in this encounter Patient Instructions * Patient Instructions* Christophe Mccray MD - 06/21/2019 15:00 EST Increase Symbicort 160/4.5, 2 inhalations twice a day, through a spacer, rinse mouth after. Continue the Spiriva once daily. Use Combivent as your rescue, only as needed every 4-6 hrs. I recommend you get a low dose CT scan to screen for lung cancer. You can arrange this closer to home. I also recommend considering participation in a pulmonary rehabilitation program. documented in this encounter Ordered Prescriptions Prescription Sig Dispensed Refills Start Date End Da te tiotropium (SPIRIVA WITH HANDIHALER) 18 mcg inhalation capsule Inhale 1 Cap as directed daily. 1 Box 11 06/21/2019 budesonide-formoterol HFA (SYMBICORT) 80-4.5 mcg/actuation HFA aerosol inhaler inhaler Inhale 2 Puffs as directed 2 times daily. 3 Inhaler 3 06/21/2019 ipratropium-albuterol (COMBIVENT RESPIMAT) 20-100 mcg/actuation inhaler Inhale 1 Puff as directed every 4 hours as needed for Wheezing. 1 Inhaler 3 06/21/2019 documented in this encounter Progress Notes * Wes Lino RT - 06/21/2019 1500 EST Name: Shantal Lowe Date of : 1950 Date: 06/21/2019 Pulmonary Function Lab 6 MINUTE WALK TEST Indication/Diagnosis: XIAO Pre/Resting B/P: 120/76 Pre/Resting HR: 68 Pre/Resting O2 Sat: 95 % Pre/Resting CANDI: 0 Oxygen Used?: No Oxygen liter/min: Room air Post/Recovery B/P: 124/70 Post/Recovery HR: 76 Post/Recovery O2 Sat: 95 % Post/Recovery: 0 Maximal CANDI: 0 Post Oxygen liter/min: room air Walked without assistance. Standard finger probe used. TIME HR Sat 02 liter/min COMMENTS 30 sec 58 92 0LPM 1 min 79 94 0LPM 1 min/30 sec 72 95 0LPM 2 min 79 95 0LPM 2 min/30 sec 79 96 0LPM 3 min 78 95 0LPM 3 min/30 sec 73 95 0LPM 4 min 76 95 0LPM 4 min/30 sec 69 96 0LPM 5 min 70 96 0LPM 5 min/30 sec 73 95 0LPM 6 min 72 95 0 LPM [id number] walked: 1440 feet. [id number] performed by: RT NAN Dat95e: 06/21/2019 Time: 16:32 Pager/Contact No.: [phone] Provider Interpretation: Normal 6 min walk distance with no desaturation. Authenticating provider: Shazia Date: 06/21/19 Time: [phone] Pager/Contact No.: [phone] * Wes Lino RT - 06/21/2019 1500 EST Patient Education Topic: combivent respimat Method: Demonstration and Verbal Taught to: Caregiver and Patient Barriers: None Outcomes: verbalized understanding and return demonstration * Wes Parks MD - 06/21/2019 1500 EST Progress Note Location: [facility] pulmonary clinic Patient's name: Shantal Lowe Date: 06/21/2019 ID: Shantal is a pleasant 69 y.o. 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 CC: dyspnea HPI: He was first diagnosed with COPD sometime before 2004, and he has been on Spiriva, Symbicort, and albuterol PRN since then. He has seen a decline in his function, specifically he can't walk as far. For example, they usuallydo a certain hike in [place] and he couldn't do the hike this year. He gets short of breath easy, even around the house, and with stairs. He has been using his PRN albuterol 3-4x a day, everyday. He also notes a cough, worse right after he quit smoking about 6 months ago, with sputum & phlegm. However, this is a lot better in the past 2 months, but still occasionally coughs, worse with exertion. He also notes his voice has changed in the past 6 months since stopping smoking, more raspy. He also notes he has had lots of headaches, about 4-5 a week needing ibuprofen, which is unusual for him. ROS: No chest pain, fevers, chills, and a complete 10 point review of systems was performed and wasnegative, except as listed above. History: Past medical history: MAURICIO on CPAP (started January 2019) Allergies: NKDA, perhaps hay fever Past surgical history: knee surgery & spine/neck surgery in the . Family medical history: Both parents . Both had COPD and were smokers and had heart disease. SH: Lives in [place], [place]. Here with his pleasant . Lived in [facility] previously ([facility] [place] Cabin in [place]. 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 He smoked about 1.5 PPD for 50 years, he quit smoking December 29 2018. Vitals: BP 120/76 Pulse 63 Temp 36.3 ??C (97.3 ??F) Resp 16 Ht 179.6 cm (70.71) Wt 92.5 kg (203 lb 14.8 oz) SpO2 95% BMI 28.68 kg/m?? Physical Exam: Lungs: coarse crackles in bases bilaterally, no wheezes, reduced breath sounds throughout. No increased work of breathing on room air. Intermittently coughing / clearing throat during interview. General: well-appearing, no acute distress. Cardiovascular: RRR, no murmurs, rubs, or gallops. No leg edema. Abdomen: soft, non-tender Skin: no clearly worrisome rashes or lesions noted on exposed skin. Musculoskeletal: moving all 4 extremities spontaneously. Neuro: alert, answering questions appropriately. Psych: affect appropriate. Labs/Imaging/Studies: Independently reviewed. Outside CXR 01/17/2019: hyperinflated lungs, flattened diaphragms, increased retrosternal air - consistent with COPD. No pulmonary edema, no consolidations or airspace opacities. 6 minute walk test 06/21/2019: normal, no hypoxia, see full respiratory therapy note from today formore details. Pulmonary function test 06/21/2019: see scanned documents for full details. FEV1 50% of predicted. Also with borderline bronchodilator response. Assessment & Plan: #Chronic obstructive pulmonary disease, unspecified COPD type ([facility]): on today's PFTs (see above), noted to have FEV1 of 50% predicted (moderate to severe COPD) and also noted to have borderline bronchodilator response. He has had his flu shot and pneumonia vaccine. -normal 6 minute walk test done in clinic today, see results above. - Pulmonary function testing done today in clinic, see results above - Discontinue albuterol inhaler and start ipratropium-albuterol (COMBIVENT RESPIMAT) 20-100 mcg/actuation inhaler; Inhale 1 Puff as directed every 4 hours as needed for Wheezing for rescue inhaler given his bronchodilator response - Start budesonide-formoterol HFA (SYMBICORT) 80-4.5 mcg/actuation HFA aerosol inhaler inhaler; Inhale 2 Puffs as directed 2 times daily (was previously taking symbicort 160-4.5 1 puff twice daily). Was taught proper symbicort inhaler technique at this visit. - Continue tiotropium (SPIRIVA WITH HANDIHALER) 18 mcg inhalation capsule; Inhale 1 Cap as directeddaily. -recommend pulmonary rehabilitation (can be here or closer to home if available). -he is up to date with flu and pneumococcal vaccines. #Need for lung cancer screening: -recommend getting low dose CT screening for lung cancer, can be done at local hospital, which is closer, but can call if desired to be done at [facility]. Disposition / Follow up: follow up in pulmonary clinic in 6 months. Patient was seen, examined, and staffed with Dr. Christophe Parks MD Internal Medicine Resident Attestation statement: I saw and examined the patient with the resident/fellow. I agree with the findings and plan of care documented in the resident's/fellow's note. Christophe Mccray MD documented in this encounter Plan of Treatment Scheduled Orders Name Type Priority Associated Diagnoses Orde r Schedule PULMONARY FUNCTION TESTING PFT Routine Chronic obstructive pulmonary disease, unspecified COPD type ([facility]) Ordered: 06/21/2019 documented as of this encounter Visit Diagnoses Diagnosis Chronic obstructive pulmonary disease, unspecified COPD type ([facility])- Primary documented in this encounter Discontinued Medications Medication Sig Discontinue Reason Start Date End Da te budesonide-formoterol HFA (SYMBICORT) 160-4.5 mcg/actuation HFA aerosol inhaler inhaler Inhale 2 Puffs as directed every 12 hours. 06/21/2019 tiotropium (SPIRIVA) 18 mcg inhalation capsule Inhale 18 mcg as directed daily. 06/21/2019 documented as of this encounter Historical Medications * This list may reflect changes made after this encounter. Medication Sig Dispensed Refills Start Date End Date acetylcysteine (U-BUYDFA-S-CYSTEINE MISC) 600 mg by misc (non-drug; combo route) route. ergocalciferol, vitamin D2, (VITAMIN D ORAL) Take by mouth. simvastatin (ZOCOR) 40 mg tablet Take 40 mg by mouth every evening. Omeprazole 20 mg tablet,delayed release (DR/EC) Take 20 mg by mouth daily. tiotropium (SPIRIVA) 18 mcg inhalation capsule Inhale 18 mcg as directed daily. 06/21/2019 budesonide-formoterol HFA (SYMBICORT) 160-4.5 mcg/actuation HFA aerosol inhaler inhaler Inhale 2 Puffs as directed every 12 hours. 06/21/2019 albuterol 90 mcg/actuation inhaler Inhale 2 Puffs as directed every 6 hours as needed for Wheezing. 10/25/2019 added in this encounter Care Teams Pizza Chef Relationship Specialty Start Date End Date Pritesh Chatman MD [address] [place] [address] PCP - General 11/07/16 documented as of this encounter
--- OUTSIDE RECORDS SUMMARY | 2024-02-19 02:28 | XMS_ITS | Clinical Summary ---
Author Organization [facility] Address [facility] [place] [address] Care Team Providers Care Returned Telephone Equipment Appraiser Name Role Phone Unknown Primary Care Provider Unavailabl e Social History Tobacco Use Types Packs/Day Years Used Date Smoking Tobacco: Never Assessed Sex and Gender Information Value Date Recorded Sex Assigned at Not on file Gender Identity Not on file Sexual Orientation Not on file Plan of Treatment Health Maintenance Due Date Last Done Comments CT Colonography 1950 Colonoscopy 1950 Colorectal Cancer Screening 1950 FIT DNA 1950 FIT 1950 Sigmoidoscopy (10 year) with FIT yearly 1950 Sigmoidoscopy 1950 Hepatitis C Screening 1968 Lipid Screening 1968 Tdap adult 1969 Tetanus vaccine 1969 Zoster vaccine (1 of 2) 2000 Advance Directive 2005 Pneumoccocal Vaccine: 65+ (1 of 1 - PCV) 2015 Covid-19 Vaccine (1 - 2022- season) 2023 Influenza (Flu) vaccine (1 o f 1 - Influenza standard series) 03/27/2024 Care Teams Returned Telephone Equipment Appraiser Relationship Specialty Start Date End Date Unknown None PCP - General 07/07/18
--- OUTSIDE RECORDS SUMMARY | 2024-02-19 02:28 | XMS_ITS | Encounter Summary ---
Author Organization [facility] Address [address] [place] [address] Care Team Providers Care Room Service Attendant Name Role Phone Pritesh Chatman MD Primary Care Provider [phone] Encounter Details Date Type Department Care Team (Late st Contact Info) Description 01/24/2019 Results Only Imaging [facility] [phone] Unknown, Provider, Social History Tobacco Use Types Packs/Day Years Used Date Smoking Tobacco: Never Assessed Sex and Gender Information Value Date Recorded Sex Assigned at Not on file Gender Identity Not on file Sexual Orientation Not on file documented as of this encounter Plan of Treatment Pending Results Name Type Priority Associated Diagnoses Date /Time OUTSIDE IMAGES - OTHER CHEST Imaging 01/24/2019 15:12 EDT OUTSIDE IMAGES - OTHER CHEST Imaging 01/24/2019 15:12 EDT documented as of this encounter Visit Diagnoses Not on filedocumented in this encounter Care Teams Room Service Attendant Relationship Specialty Start Date End Date Pritesh Chatman MD [address] [facility] 6 [place] [address] PCP - General 11/07/16 documented as of this encounter
--- OUTSIDE RECORDS SUMMARY | 2024-02-19 02:28 | XMS_ITS | Encounter Summary ---
Author Organization [facility] Address [address] [place] [address] Care Team Providers Care Marketing Operations Associate Name Role Phone Pritesh Chatman MD Primary Care Provider [phone] Encounter Details Date Type Department Care Team (Late st Contact Info) Description 02/25/2018 Results Only Imaging [facility] [phone] Harriet Cat, [facility] [address] [place] [phone] Social History Tobacco Use Types Packs/Day Years Used Date Smoking Tobacco: Never Assessed Sex and Gender Information Value Date Recorded Sex Assigned at Not on file Gender Identity Not on file Sexual Orientation Not on file documented as of this encounter Plan of Treatment Not on file documented as of this encounter Procedures Procedure Name Priority Date/Time Associated Diagnosis Comments VL LOWER ARTERIAL PVR RESTING 02/25/2018 12:22 EDT documented in this encounter Results * VL LOWER ARTERIAL PVR RESTING (02/25/2018 12:22 EDT) Anatomical Region Laterality Modality Other 02/25/2018 12:2 2 EDT Narrative 03/05/2018 10:34 EDT Vascular Diagnostic Laboratory [facility] [place] [facility] Industrial Education Instructor [facility], Level 5 [address] [facility] [place] [address] Technologist: Parkash Kirkpatrick Fellow: IMPRESSIONS Bilateral lower extremities: No evidence of arterial insufficiency. No evidence of abdominal aortic aneurysm; aorta measures a maximum diameter of 2 cm, mild atherosclerotic changes are visible. PROCEDURE: Multi-level lower extremity arterial physiologic evaluation. Continuous wave Doppler, segmental blood pressures, photoplethysmography, pulse volume recording, and ankle-brachial index. INDICATION: Right foot digit discoloration. Aortic atherosclerosis. HISTORY: Walks a few miles for exercise weekly without complaint. RISK FACTORS: Former tobacco use. Right brachial systolic: 121mm Hg: Left brachial systolic: 113mm Hg 121 SEGMENTAL PRESSURES AND PVR: + +--------+ + + + Location ? Pressure Brachial ? PVR ? Comment ? index ? waveform ? + +--------+ + + + Right thigh ? + +--------+ + + + Right calf ? + +--------+ + + + Right ankle ? 145mm Hg 1.2 ? Normal ? Dp oil tanker captain ? triphasic ? + +--------+ + + + Right ? transmetatarsal ? + +--------+ + + + Right first digit ?? 67mm Hg 0.55 ? Diminished ? + +--------+ + + + Left thigh ? + +--------+ + + + Left calf ? + +--------+ + + + Left ankle ? 144mm Hg 1.19 ? Normal ? Dp oil tanker captain ? triphasic ? + +--------+ + + + Left ? transmetatarsal ? + +--------+ + + + Left first digit ?? 104mm Hg 0.86 ? Diminished ? + +--------+ + + + * Electronically signed by: Angelo Nelson. 03/05/2018 10:34 Procedure Note Angelo Nelson MD - 03/05/2018 Vascular Diagnostic Laboratory [facility], Level [address] [place] [address] Technologist: Prakash Kirkpatrick Fellow: IMPRESSIONS Bilateral lower extremities: No evidence of arterial insufficiency. No evidence of abdominal aortic aneurysm; aorta measures a maximum diameter of 2 cm, mild atherosclerotic changes are visible. PROCEDURE: Multi-level lower extremity arterial physiologic evaluation. Continuous wave Doppler, segmental blood pressures,photoplethysmography, pulse volume recording, and ankle-brachial index. INDICATION: Right foot digit discoloration. Aortic atherosclerosis. HISTORY: Walks a few miles for exercise weekly without complaint. RISK FACTORS: Former tobacco use. Right brachial systolic: 121mm Hg: Left brachial systolic: 113mm Hg 121 SEGMENTAL PRESSURES AND PVR: + +--------+ + + + Location Pressure Brachial PVR Comment index waveform + +--------+ + + + Right thigh + +--------+ + + + Right calf + +--------+ + + + Right ankle 145mm Hg 1.2 Normal Dp oil tanker captain triphasic + +--------+ + + + Right transmetatarsal + +--------+ + + + Right first digit 67mm Hg 0.55 Diminished + +--------+ + + + Left thigh + +--------+ + + + Left calf + +--------+ + + + Left ankle 144mm Hg 1.19 Normal Dp oil tanker captain triphasic + +--------+ + + + Left transmetatarsal + +--------+ + + + Left first digit 104mm Hg 0.86 Diminished + +--------+ + + + * Electronically signed by: Angelo Nelson 03/05/2018 10:34 Harriet Cat M IM US VASCULAR ORD ERABLES documented in this encounter Visit Diagnoses Not on filedocumented in this encounter Care Teams Marketing Operations Associate Relationship Specialty Start Date End Date Pritesh Chatman MD [address] [address] PCP - General 11/07/16 documented as of this encounter
--- OUTSIDE RECORDS SUMMARY | 2024-02-19 02:28 | XMS_ITS | Encounter Summary ---
Author Organization [facility] Address [address] [place] [address] Care Team Providers Care Lawn Mower Mechanic Name Role Phone Pritesh Chatman MD Primary Care Provider [phone] Reason for Visit * (Routine) - Receiving Office to Obtain Authorization Specialty Diagnoses / Procedures Referred By Marisol hughes Referred To Contact Procedures CT OUTSIDE IMAGES CHEST Unknown, ProviderMD Referral ID Status Reason Start Date Expiration Date Visits Requested Visits Authorized [id number] Receiving Office to Obtain Authorization 10/28/2019 1 1 Encounter Details Date Type Department Care Team (Latest Contact Info) Description 08/24/2019 - 08/24/2019 23:59 EST Hospital Encounter [facility] Radiology - Main [place] [address] [place] [address] Discharge Disposition: Home or Self Care Social [...] Dispensed Refills Start Date End Date acetylcysteine (O-NZWNVR-Q-CYSTEINE MISC) 600 mg by misc (non-drug; combo [...] Wheezing. 10/25/2019 documented as of this encounter Discharge Disposition Disposition Code Departure Means Destination Home or Self Care documented in this encounter Plan of Treatment Not on file documented as of this encounter Procedures Procedure Name Priority Date/Time Associated Diagnosis Comments CT OUTSIDE IMAGES CHEST Routine 10/28/2019 7:09 EDT documented in this encounter Results * CT OUTSIDE IMAGES CHEST (10/28/2019 7:09 EDT) Narrative DAYNA - 10/28/2019 7:09 EDT This is a non-reportable exam. Physician Fa_General IMG OTHER PATRICKIN G ORDERABLES DAYNA documented in this encounter Visit Diagnoses Not on filedocumented in this encounter Care Teams Lawn Mower Mechanic Relationship Specialty Start Date End Date Pritesh Chatman MD [address] [facility] 6 [place] [address] PCP - General 11/07/16 documented as of this encounter
--- OUTSIDE RECORDS SUMMARY | 2024-02-19 02:28 | XMS_ITS | Encounter Summary ---
Author Organization [facility] Address [address] [place] [address] Care Team Providers Care Marker Machine Name Role Phone Pritesh Chatman MD Primary Care Provider [phone] Reason for Visit * Reason Onset Date Comments Patient Outreach 10/25/2019 Encounter Details Date Type Department Care Team (Late st Contact Info) Description 10/25/2019 Telephone [facility] Pulmonology & Critical Care - [address] [phone] Christophe Mccray MD [address] [place] [address], [address] [place] [address] Patient Outreach Social History Tobacco Use Types Packs/Day Years [...] Telephone Encounter - Wes Lino RT - 10/25/2019 1510 EDT S: Ct chest at [facility] recently B: Shazia patient. A: patient said he recently had chest CT done at [facility] R: requested image push and report faxed. Once received will route to Dr Mccray for review and ask that he FUR with Shantal. * Telephone Encounter - Linh Guerrero - 10/25/2019 1441 EDT Patient is calling, states he just had his telemed appt with the provider but he forgot to discuss the CT scan he had done. He would like a call back to discuss. documented in this encounter Plan of Treatment Not on file documented as of this encounter Visit Diagnoses Not on filedocumented in this encounter Care Teams Marker Machine Relationship Specialty Start Date End Date Pritesh Chatman MD [address] [place] [id number] PCP - General 11/07/16 documented as of this encounter
--- OUTSIDE RECORDS SUMMARY | 2024-02-19 02:28 | XMS_ITS | Encounter Summary ---
Author Organization [facility] Address [address] [place] [address] Care Team Providers Care Senior Care Specialist Name Role Phone Desiree Yu MD Primary Care Provider [phone] Encounter Details Date Type Department Care Team (Late st Contact Info) Description 09/20/2018 Results Only [facility] [phone] Tim Hassan MD [address] [place] [address] [address] [place], [place] [id number] Social History Tobacco Use Types Packs/Day Years Used Date Smoking Tobacco: Never Assessed Sex and Gender Information Value Date Recorded Sex Assigned at Not on file Gender Identity Not on file Sexual Orientation Not on file documented as of this encounter Plan of Treatment Not on file documented as of this encounter Procedures Procedure Name Priority Date/Time Associated Diagnosis Comments SURGICAL PATHOLOGY Routine 09/20/2018 17 :14 EST documented in this encounter Results * SURGICAL PATHOLOGY (09/20/2018 17:14 EST) Pathology Report: SURGICAL PATHOLOGY REPORT Reports generated via electronic interface contain original data; however they are lacking the format of the original report. Caution should be taken when reading/interpret ing unformatted reports. Name: ? SHANTAL CORDOVA ? Accession #: ? [id number] ? : ? 1950 (Age: 68) ??M ? Collect Date: ? 09/20/2018 ? Location: ? [facility] ? Receive Date: ? 09/20/2018 ? Provider: TIM HASSAN MD Copy to: DESIREE YU MD ? Final Pathologic Diagnosis: A. COLON, CECAL POLYP, BIOPSY: - ??Tubulovillous adenoma. - ??Negative for malignancy. B. COLON, ASCENDING POLYP, BIOPSY: - ??Tubulovillous adenoma. - ??Negative for malignancy. C. COLON, SIGMOID POLYP, BIOPSY: - ??Hyperplastic polyp. - ??Negative for dysplasia or malignancy. Document reviewed and electronically signed by: JOHN ALFRED MD Report ??Date: 09/24/2018 14:36 By the signature above, the attending physician certifies that he/she has personally conducted a gross and/or microscopic examination of the described specimens and rendered or confirmed the above diagnosis. Specimen(s) Received: A. ??Cecal polyp B. ??Ascending colon polyp C. ??Sigmoid polyp Clinical History: Polyps Gross Description: A. ?Received in formalin labelled with proper patient identification (initials W, O) and cecal polyp are three fragments of brown tissue measuring 0.3 cm and 0.6 cm in greatest dimension. The specimens are entirely submitted in A1. B. ?Received in formalin labelled with proper patient identification (initials W, O) and ascending colon polyp are two fragments of pink tissue measuring 0.3 cm and 0.5 cm in greatest dimension. The specimens are entirely submitted in B1. C. ?Received in formalin labelled with proper patient identification (initials W, O) and sigmoid polyp is a single fragment of pink tissue (0.4 x 0.3 x 0.3 cm). The specimen is entirely submitted in C1. ANJALI Reese ([facility]) 09/21/2018 7:48 AM End of Report [facility] 09/20/2018 17:1 4 EST 09/20/2018 17:14 EST Tim Hassan MD PATHOLOGY ORDERA YANELIS [facility] [address] [place] [address] documented in this encounter Visit Diagnoses Not on filedocumented in this encounter Care Teams Senior Care Specialist Relationship Specialty Start Date End Date Desiree Yu MD [address] [place] [address] PCP - General 11/07/16 documented as of this encounter
--- OUTSIDE RECORDS SUMMARY | 2024-02-19 02:29 | XMS_ITS | Encounter Summary ---
Author Organization [facility] Address [address] [place] [address] Care Team Providers Care Gis Application Developer Name Role Phone Pritesh Chatman MD Primary Care Provider [phone] Encounter Details Date Type Department Care Team (Late st Contact Info) Description 01/12/2018 Historical Results Only [facility] Lab - Main [place] [address] [place] [address] Harriet Cat DPM [address] [phone] Social History Tobacco Use Types Packs/Day Years Used Date Smoking Tobacco: Never Assessed Sex and Gender Information Value Date Recorded Sex Assigned at Not on file Gender Identity Not on file Sexual Orientation Not on file documented as of this encounter Plan of Treatment Not on file documented as of this encounter Procedures Procedure Name Priority Date/Time Associated Diagnosis Comments ZZKOH PREP Routine 01/12/2018 14:04 EDT documented in this encounter Results * GAURAV PREP (01/12/2018 14:04 EDT) GAURAV RESULT - [facility] YEAST SEEN, FUNGAL ELEMENTS SEEN 01/12/2018 23:01 EDT [facility] Nail specimen (specimen) 01/12/2018 14:04 EDT 01/12/2018 17:59 EDT Comment:TN Harriet Cat DPRishi URINALYSIS ORDERABL ES [facility] documented in this encounter Visit Diagnoses Not on filedocumented in this encounter Care Teams Gis Application Developer Relationship Specialty Start Date End Date Pritesh Chatman MD [address] [address] PCP - General 11/07/16 documented as of this encounter
[2024-02-19] MEDS: Levalbuterol HFA 15 GM INH 4 PUFF IH (14:12)
[2024-02-19] MEDS: Inhaler, Assist Device 1 EACH MC (14:12)
--- NOTE | 2024-02-22 14:39 | W.PFT ---
Date of service: 02/19/24 Time of Service: 13:02 Pulmonary Function Test Result Requesting Provider [place] Indications: COPD Impression Very severe respiratory defect w/no reversibility after bronchodilator. Mild to moderate restriction and air trapping. Severe decrease in diffusion. Flow volume curve suggests obstruction. Clinical Correlation therefore is recommended.
== END 2024-02-19 02:08 | disposition home or self-care (01) ==
LOC: RT 02:07
PROVIDERS: PCP Family Medicine; Visit Provider Physician Assistant Surgical
DX: J44.9 Chronic obstructive pulmonary disease, unspecified (principal); R94.2 Abnormal results of pulmonary function studies
CPT/HCPCS: 00123; 94060; 94726; 94729

== ENCOUNTER → 2024-03-03 13:19 | Outpatient (BNVA) | payer OTHER, SELFPAY | PROVIDERS: PCP Family Medicine; Referring Provider Family Medicine; Visit Provider Physician Assistant Surgical | DX: J44.9 Chronic obstructive pulmonary disease, unspecified (principal) | CPT/HCPCS: 99214 ==

== ENCOUNTER 2024-03-10 03:40 | Outpatient (CLI) | payer OTHER, SELFPAY ==
--- OUTSIDE RECORDS SUMMARY | 2024-03-10 03:42 | XMS_ITS | Encounter Summary ---
Author Organization [facility] Address [address] [place] [address] Care Team Providers Care Bread Oven Operator Name Role Phone Pritesh Chatman MD Primary Care Provider [phone] Encounter Details Date Type Department Care Team (Late st Contact Info) Description 12/06/2018 Historical Results Only [facility] Radiology Results [address] [place] [address] Yoko Teague, [facility] [address] [place] [address] Social History Tobacco Use Types [...] CC: ? Transcribed Date/Time: 12/06/2018 (1510) ? Exchange Underwriting Consultant: ? Printed Date/Time: 04/13/2019 (1956) ? PAGE [...] Baldwin MD CC: Transcribed Date/Time: 12/06/2018 (1509) Exchange Underwriting Consultant: Printed Date/Time: 04/13/2019 (1955) PAGE 1 Signed Report Yoko Teague DPM IMG DIAGNOSTIC DAMIEN GING ORDERABLES documented in this encounter Visit Diagnoses Not on filedocumented in this encounter Care Teams Bread Oven Operator Relationship Specialty Start Date End Date Pritesh Chatman MD [address] [address] PCP - General 11/07/16 documented as of this encounter
--- OUTSIDE RECORDS SUMMARY | 2024-03-10 03:42 | XMS_ITS | Encounter Summary ---
Author Organization [facility] Address [address] [place] [address] Care Team Providers Care Tile Setter Name Role Phone Pritesh Chatman MD Primary Care Provider [phone] Reason for Visit * (Routine) - Receiving Office to Obtain Authorization Specialty Diagnoses / Procedures Referred By Marisol hughes Referred To Contact Procedures CT OUTSIDE IMAGES CHEST Unknown, ProviderMD Referral ID Status Reason Start Date Expiration Date Visits Requested Visits Authorized [id number] Receiving Office to Obtain Authorization 10/28/2019 1 1 Encounter Details Date Type Department Care Team (Latest Contact Info) Description 08/24/2019 - 08/24/2019 23:59 EST Hospital Encounter [facility] Radiology - Main [place] [address] [place] [address] Discharge Disposition: Home or Self Care Social [...] Dispensed Refills Start Date End Date acetylcysteine (E-SPEGCP-Y-CYSTEINE MISC) 600 mg by misc (non-drug; combo [...] on filedocumented in this encounter Care Teams Tile Setter Relationship Specialty Start Date End Date Pritesh Chatman MD 4 [address] [facility] 6 [place] [address] PCP - General 11/07/16 documented as of this encounter
--- OUTSIDE RECORDS SUMMARY | 2024-03-10 03:42 | XMS_ITS | Encounter Summary ---
Author Organization [facility] Address [address] [place] [address] Care Team Providers Care Real Estate Analyst Name Role Phone Pritesh Chatman MD Primary Care Provider Reason for Visit * Reason Onset Date Comments Follow-up 10/27/2019 CT chest results per provider Encounter Details Date Type Department Care Team (Late st Contact Info) Description 10/27/[address] [facility] Pulmonology & Critical Care - [address] [address] Christophe Mccray MD [address] [place] [address], [address] [place] [phone] Follow-up (CT chest results per provider) Social [...] on filedocumented in this encounter Care Teams Real Estate Analyst Relationship Specialty Start Date End Date Pritesh Chatman MD [address] [place] [address] PCP - General 11/07/16 documented as of this encounter
--- OUTSIDE RECORDS SUMMARY | 2024-03-10 03:42 | XMS_ITS | Encounter Summary ---
Author Organization [facility] Address [address] [place] [address] Care Team Providers Care Paperhanger Name Role Phone Pritesh Chatman MD Primary Care Provider [phone] Encounter Details Date Type Department Care Team (Latest Contact Info) Description 12/06/2018 7:18 EDT - 12/06/2018 23:59 EDT Hospital Encounter [facility] [address] [place] [address] Unknown, ProviderMD Discharge Disposition: Auto Discharge Social [...] on filedocumented in this encounter Care Teams Paperhanger Relationship Specialty Start Date End Date Pritesh Chatman MD 4 [facility] 6 [place] [address] PCP - General 11/07/16 documented as of this encounter
--- OUTSIDE RECORDS SUMMARY | 2024-03-10 03:42 | XMS_ITS | Encounter Summary ---
Author Organization [facility] Address [address] [place] [address] Care Team Providers Care Radiology Interventional Physician Name Role Phone Pritesh Chatman MD Primary Care Provider [phone] Encounter Details Date Type Department Care Team (Late st Contact Info) Description 01/12/2018 Historical Results Only [facility] Lab - Main [place] [address] [place] [address] Harriet Cat DPM [address] [phone] Social History Tobacco Use Types Packs/Day Years [...] PREP (01/12/2018 14:04 EDT) GAURAV RESULT - [facility] YEAST SEEN, FUNGAL ELEMENTS SEEN 01/12/2018 23:01 EDT [facility] Nail specimen (specimen) 01/12/2018 14:04 EDT 01/12/2018 17:59 EDT Comment:TN Harriet Cat DPRishi URINALYSIS ORDERABL ES [facility] documented in this encounter Visit Diagnoses Not on filedocumented in this encounter Care Teams Radiology Interventional Physician Relationship Specialty Start Date End Date Pritesh Chatman MD [address] [address] PCP - General 11/07/16 documented as of this encounter
--- OUTSIDE RECORDS SUMMARY | 2024-03-10 03:42 | XMS_ITS | Clinical Summary ---
Author Organization [facility] Address [address] [place] [address] Care Team Providers Care Depilatory Painter Name Role Phone Pritesh Chatman MD Primary Care Provider [phone] Allergies No known active allergies Medications Medication Sig Dispensed Refills Start Date End Date Status Omeprazole 20 mg tablet,delayed release (DR/EC) Take 20 mg by mouth daily. Active simvastatin (ZOCOR) 40 mg tablet Take 40 mg by mouth every evening. Active ergocalciferol, vitamin D2, (VITAMIN D ORAL) Take by mouth. Active acetylcysteine (F-JBXTMT-Y-CYSTEINE MISC) 600 mg by misc (non-drug; combo [...] COVID-19 Vaccine (2022-24 season) 2023 Care Teams Depilatory Painter Relationship Specialty Start Date End Date Pritesh Chatman MD [address] [address] PCP - General 11/07/16
--- OUTSIDE RECORDS SUMMARY | 2024-03-10 03:42 | XMS_ITS | Encounter Summary ---
Author Organization [facility] Address [address] [place] [address] Care Team Providers Care Peoplesoft Business Analyst Name Role Phone Pritesh Chatman MD Primary Care Provider [phone] Encounter Details Date Type Department Care Team (Late st Contact Info) Description 01/19/2019 Orders Only [facility] Pulmonology & Critical Care - [facility] [address] [place], [place] [phone] Wes Lino, RT Chronic obstructive pulmonary disease, [...] Primary documented in this encounter Care Teams Peoplesoft Business Analyst Relationship Specialty Start Date End Date Pritesh Chatman MD [address] [place] [address] [place] [address] PCP - General 11/07/16 documented as of this encounter
--- OUTSIDE RECORDS SUMMARY | 2024-03-10 03:42 | XMS_ITS | Encounter Summary ---
Author Organization [facility] Address [address] [place] [address] Care Team Providers Care Rn Clinical Trials Name Role Phone rPitesh Chatman MD Primary Care Provider [phone] Reason for Visit * Reason Onset Date Comments Coordination Of Care 08/01/2019 Encounter Details Date Type Department Care Team (Late st Contact Info) Description 08/01/2019 Telephone [facility] Pulmonology & Critical Care - [address] [phone] Christophe Mccray MD [address] [facility], Level [address] [place] [address] Coordination Of Care Social History [...] them rescheduled for sometime around November at [facility]. Left my chart message as home number listed comes back as being disconnected. * Telephone Encounter - Christophe Mccray MD - 08/04/2019 1452 EST Leon Harvey. We wanted to see him in 6 months from last visit with repeat jj to see how he is doing. If he had recent jj at [facility] within the last month or so than that would be fine. Also, he had indicated he would prefer to get low dose CT closer to home ([facility]), but we can order it here if he would prefer. Christophe Dias * Telephone Encounter - Armando Nunn - 08/01/2019 9904 EST Per Harriett, got letter regarding PFT at [facility]. Per Harriett, patient already got PFT does not feel he needs another one. Per Harriett, is also having a hard time getting a low dose CT scan scheduled. documented in this encounter Plan of Treatment Not on file documented as of this encounter Visit Diagnoses Not on filedocumented in this encounter Care Teams Rn Clinical Trials Relationship Specialty Start Date End Date Pritesh Chatman MD [address] [place] [address] PCP - General 11/07/16 documented as of this encounter
--- OUTSIDE RECORDS SUMMARY | 2024-03-10 03:42 | XMS_ITS | Encounter Summary ---
Author Organization [facility] Address [address] [place] [address] Care Team Providers Care Washing Machine Loader Name Role Phone Pritesh Chatman MD Primary Care Provider [phone] Reason for Referral * (Routine) - Authorization Not Required Specialty Diagnoses / Procedures Referred By Contac t Referred To Contact Diagnoses Chronic obstructive pulmonary disease, unspecified COPD type ([facility]) Procedures PULMONARY FUNCTION TESTING Christophe Mccray MD [address] [place] [address] [address] [place] [address] Referral ID Status Reason Start Date Expiration Date Visits Requested Visits Authorized [id number] Authorization Not Required 9 1 1 Reason for Visit * Reason Comments Exertional Dyspnea * Consult (Routine) - Closed Specialty Diagnoses / Procedures Referred By Contac t Referred To Contact Pulmonary Disease Diagnoses COPD (chronic obstructive pulmonary disease) ([facility]) Doris Pickens, METER REPAIR SHOP SUPERVISOR [address] [place] [address] [place] [address] [address] [place] [address] Referral ID Status Reason Start Date Expiration Date Visits Re quested Visits Authorized [id number] Closed 1 1 Encounter Details Date Type Department Care Team (Late st Contact Info) Description 06/21/2019 15:00 EST Office Visit [facility] Pulmonology & Critical Care - [facility] [address] [place] [address] Christophe Mccray MD [address] [facility], [address] [place] [phone] Chronic obstructive pulmonary disease, unspecified COPD type [...] 0LPM 6 min 72 95 0 LPM [id number] walked: 1440 feet. T96est performed by: RT NAN Dat95e: 06/21/2019 Time: 16:32 Pager/Contact No.: [phone] Provider Interpretation: Normal 6 min walk distance with no desaturation. Authenticating provider: Shazia Date: 06/21/19 Time: 3261 Pager/Contact No.: [phone] * Wes Lino RT - 06/21/2019 1500 [...] history of COPD, MAURICIO on CPAP (at [facility], started in January), R toe amputation [...] example, they usuallydo a certain hike in [place] and he couldn't do the hike this [...] and had heart disease. SH: Lives in [place], [place]. Here with his pleasant . Lived in [facility] previously ([facility] near [place]). Cabin in [place]. 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 He smoked [...] #Chronic obstructive pulmonary disease, unspecified COPD type ([facility]): on today's PFTs (see above), noted to [...] call if desired to be done at [facility]. Disposition / Follow up: follow up in [...] Chronic obstructive pulmonary disease, unspecified COPD type ([facility]) Ordered: 06/21/2019 documented as of this encounter Visit Diagnoses Diagnosis Chronic obstructive pulmonary disease, unspecified COPD type ([facility])- Primary documented in this encounter Discontinued Medications [...] Dispensed Refills Start Date End Date acetylcysteine (T-RMPOFU-P-CYSTEINE MISC) 600 mg by misc (non-drug; combo [...] 10/25/2019 added in this encounter Care Teams Washing Machine Loader Relationship Specialty Start Date End Date Pritesh Chatman MD [address] [place] [address] PCP - General 11/07/16 documented as of this encounter
--- OUTSIDE RECORDS SUMMARY | 2024-03-10 03:42 | XMS_ITS | Encounter Summary ---
Author Organization [facility] Address [address] [place] [address] Care Team Providers Care Diving Supervisor Name Role Phone Pritesh Chatman MD Primary Care Provider [phone] Reason for Visit * Reason Onset Date Comments Follow-up 08/09/2019 jj for [facility] Encounter Details Date Type Department Care Team ([facility] st Contact Info) Description 08/09/2019 Telephone [facility] Pulmonology & Critical Care - [address] [phone] Christophe Mccray MD 111 [facility], Level [address] [place] [phone] Follow-up (jj for [facility]) Social History Tobacco Use Types Packs/Day Years [...] breath documented in this encounter Care Teams Diving Supervisor Relationship Specialty Start Date End Date Pritesh Chatman MD [address] [facility] [address] [place] [address] PCP - General 11/07/16 documented as of this encounter
--- OUTSIDE RECORDS SUMMARY | 2024-03-10 03:42 | XMS_ITS | Clinical Summary ---
Author Organization [facility] Address [facility] [place] [address] Care Team Providers Care Claims Account Specialist Name Role Phone Unknown Primary Care Provider [...] - Influenza standard series) 03/27/2024 Care Teams Claims Account Specialist Relationship Specialty Start Date End Date Unknown None PCP - General 07/07/18
--- OUTSIDE RECORDS SUMMARY | 2024-03-10 03:42 | XMS_ITS | Encounter Summary ---
Author Organization [facility] [place] [address] Care Team Providers Care Salesforce Business Analyst Name Role Phone Ta Meier MD Primary Care Provider [phone] Encounter Details Date Type Department Care Team (Late st Contact Info) Description 04/27/2014 [place] [phone] Ta Meier MD [address] [place] [address] Social History Tobacco Use Types Packs/Day Years Used Date Smoking Tobacco: Never Assessed Sex and Gender Information Value Date Recorded Sex Assigned at Not on file Gender Identity Not on file Sexual Orientation Not on file documented as of this encounter Plan of Treatment Not on file documented as of this encounter Visit Diagnoses Not on filedocumented in this encounter Care Teams Salesforce Business Analyst Relationship Specialty Start Date End Date Ta Meier MD [address] [place], [place] [address] PCP - General 04/27/14 07/06/18 documented as of this encounter
--- OUTSIDE RECORDS SUMMARY | 2024-03-10 03:42 | XMS_ITS | Encounter Summary ---
Author Organization [facility] Address [address] [place] [address] Care Team Providers Care Beading Sawyer Name Role Phone Pritesh Chatman MD Primary Care Provider [phone] Reason for Visit * Reason Comments Telemedicine Phone Call Chronic Obstructive Pulmonary Disease Encounter Details Date Type Department Care Team (Late st Contact Info) Description 10/25/2019 14:00 EDT Telemedicine [facility] Pulmonology & Critical Care - [address] [address] Christophe Mccray MD [address] [place] [address], [address] [place] [phone] Chronic obstructive pulmonary disease, unspecified COPD type ([facility]) (Primary Dx) Social History Tobacco Use [...] to SOB. 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 [...] pulmonary disease, unspecified COPD type ([facility])- Primary documented in this encounter Discontinued Medications Medication Sig Discontinue Reason Start Date End Da te albuterol 90 mcg/actuation inhaler Inhale 2 Puffs as directed every 6 hours as needed for Wheezing. 10/25/2019 documented as of this encounter Care Teams Beading Sawyer Relationship Specialty Start Date End Date Pritesh Chatman MD [address] [address] PCP - General 11/07/16 documented as of this encounter
--- OUTSIDE RECORDS SUMMARY | 2024-03-10 03:42 | XMS_ITS | Encounter Summary ---
Author Organization [facility] Address [address] [place] [address] Care Team Providers Care Care Connector Name Role Phone Pritesh Chatman MD Primary Care Provider [phone] Encounter Details Date Type Department Care Team (Late st Contact Info) Description 01/26/2019 Historical Results Only [facility] - Main [place] [address] [place], [place] [address] Cynthia Ayon MD [address] [place] [phone] Social History Tobacco Use Types Packs/Day [...] Date/Time Associated Diagnosis Comments ANAEROBIC CULTURE - [facility] Routine 01/26/2019 11:47 EDT FUNGAL CULTURE - OTHER SITES - [facility] Routine 01/26/2019 11:47 EDT SURGICAL PATHOLOGY Routine 01/26/2019 documented in this encounter Results * FUNGAL CULTURE - OTHER [facility] - [facility] (01/26/2019 11:47 EDT) FUNGUS ISOLATED? - [facility] NO FUNGI ISOLATED, FIRST READING 02/23/2019 8:35 EDT [facility] FUNGUS ISOLATED? - [facility] NO FUNGI ISOLATED AT 4 WEEKS 02/23/2019 8:35 EDT [facility] 01/26/2019 11:4 7 EDT 01/26/2019 12:30 EDT Narrative [facility] - 02/23/2019 8:35 EDT COMMENTS: RIGHT FOOT 2ND TOE CLEAN END OF BONE Does PT Have a Latex Allergy? NO Cynthia Ayon MD MICROBIOLOGY - GENERAL ORDERABLES [facility] * ANAEROBIC CULTURE - [facility] (01/26/2019 11:47 EDT) Anaerobe Culture 01/29/2019 10:35 EDT [facility] Anaerobe Culture NO ANAEROBES ISOLATED IN 48 HOURS 01/29/2019 10:35 EDT [facility] Anaerobe Culture TISSUE SUBMITTED-RIGHT FOOT SECOND TOE CLEAN END OF BONE Result called to LUIZA GORDON IN SDS 01/26/19 1324: Result called by MARCIA 01/30/2019 12:25 EDT [facility] BACTERIA SEEN - [facility] NO 01/30/2019 12:25 EDT [facility] WBC NO 01/30/2019 12:25 EDT [facility] PTH-Related Peptide STAPHYLOCOCCUS SP COAG NEG 01/30/2019 7:27 EDT [facility] QUANT - [facility] BROTH ONLY 01/30/2019 7:27 EDT [facility] 01/26/2019 11:4 7 EDT 01/26/2019 12:29 EDT Comment:R2T Narrative [facility] - 01/30/2019 12:25 EDT COMMENTS: [...] Cynthia Ayon MD MICROBIOLOGY - GENERAL ORDERABLES [facility] * SURGICAL PATHOLOGY (01/26/2019) 01/26/2019 01/26/2019 12: 54 EDT Narrative [facility] - 02/01/2019 12:31 EDT ----- ------- Name: SHANTAL CORDOVA ? : 50 ?Age/Sex: 68/M ?Unit#: [id number] ? Loc: SDS ? Status: DEP SDC ?? Reg Date: 01/26/19 ? Pt.Phone Number: ? ----- ------- Specimen: [id number] ? STATUS: SOUT ?Spec Date:01/26/19 ? Physician Copies: ?Cynthia Ayon MD ? Tissues: A ?? 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 Guido Jarquin MD ? CPT: 45076 ?? Units: ??1 ? 30303 ? 1 ?FINAL DIAGNOSIS ? TOE, RIGHT [...] confirmed the above diagnosis. Test Performed by [facility], [address] [place] [address] Fence Supervisor: Gale Nunn MD PHD ----- ------- Cynthia Ayon MD PATHOLOGY ORDER LESVIA [facility] documented in this encounter Visit Diagnoses Not on filedocumented in this encounter Care Teams Care Connector Relationship Specialty Start Date End Date Pritesh Chatman MD [address] [address] PCP - General 11/07/16 documented as of this encounter
--- OUTSIDE RECORDS SUMMARY | 2024-03-10 03:42 | XMS_ITS | Encounter Summary ---
Author Organization [facility] Address [address] [place] [address] Care Team Providers Care Motion Study Engineer Name Role Phone Desiree Yu MD Primary Care Provider [phone] Encounter Details Date Type Department Care Team (Late st Contact Info) Description 09/20/2018 Results Only [facility] [phone] Tim Hassan MD [address] [place] [address] DR MARAVILLA [place], [place] [phone] Social History Tobacco Use Types Packs/Day Years [...] ? SHANTAL CORDOVA ? Accession #: ? [id number] ? : ? 1950 (Age: 68) ??M [...] is entirely submitted in C1. ANJALI Reese ([facility]) 09/21/2018 7:48 AM End of Report [facility] 09/20/2018 17:1 4 EST 09/20/2018 17:14 EST Tim Hassan MD PATHOLOGY ORDERA YANELIS [facility] [address] [place] [address] documented in this encounter Visit Diagnoses Not on filedocumented in this encounter Care Teams Motion Study Engineer Relationship Specialty Start Date End Date Desiree Yu MD [address] [place] [address] PCP - General 11/07/16 documented as of this encounter
--- OUTSIDE RECORDS SUMMARY | 2024-03-10 03:42 | XMS_ITS | Encounter Summary ---
Author Organization [facility] Address [address] [place] [address] Care Team Providers Care Hourly Sign Language Interpreter Name Role Phone Pritesh Chatman MD Primary Care Provider [phone] Encounter Details Date Type Department Care Team (Late st Contact Info) Description 01/24/2019 Results Only Imaging [facility] [phone] Unknown, Provider, Social History Tobacco Use Types [...] on filedocumented in this encounter Care Teams Hourly Sign Language Interpreter Relationship Specialty Start Date End Date Pritesh Chatman MD [address] [facility] [address] [place] [address] PCP - General 11/07/16 documented as of this encounter
--- OUTSIDE RECORDS SUMMARY | 2024-03-10 03:42 | XMS_ITS | Encounter Summary ---
Author Organization [facility] Address [address] [place] [address] Care Team Providers Care Rug Cutter Name Role Phone Pritesh Chatman MD Primary Care Provider Encounter Details Date Type Department Care Team (Late st Contact Info) Description 02/25/2018 Results Only Imaging [facility] [phone] Harriet Cat, [facility] [address] [place] [id number] Social History Tobacco Use Types Packs/Day Years [...] 03/05/2018 10:34 EDT Vascular Diagnostic Laboratory [facility] Craft Artist [facility], Level [address] [facility] [address] Technologist: Prakash Kirkpatrick Fellow: IMPRESSIONS Bilateral lower [...] 145mm Hg 1.2 ? Normal ? Dp captain/check airman ? triphasic ? + +--------+ + + + Right ? transmetatarsal ? + +--------+ + + + Right first digit ?? 67mm Hg 0.55 ? Diminished ? + +--------+ + + + Left thigh ? + +--------+ + + + Left calf ? + +--------+ + + + Left ankle ? 144mm Hg 1.19 ? Normal ? Dp captain/check airman ? triphasic ? + +--------+ + + + Left ? transmetatarsal ? + +--------+ + + + Left first digit ?? 104mm Hg 0.86 ? Diminished ? + +--------+ + + + * Electronically signed by: Angelo Nelson. 03/05/2018 10:34 Procedure Note Angelo Nelson MD - 03/05/2018 Vascular Diagnostic Laboratory [facility], Level [address] [place] [address] Technologist: Prakash Kirkpatrick Fellow: IMPRESSIONS Bilateral lower [...] Right ankle 145mm Hg 1.2 Normal Dp captain/check airman triphasic + +--------+ + + + Right transmetatarsal + +--------+ + + + Right first digit 67mm Hg 0.55 Diminished + +--------+ + + + Left thigh + +--------+ + + + Left calf + +--------+ + + + Left ankle 144mm Hg 1.19 Normal Dp captain/check airman triphasic + +--------+ + + + Left transmetatarsal + +--------+ + + + Left first digit 104mm Hg 0.86 Diminished + +--------+ + + + * Electronically signed by: Angelo Nelson 03/05/2018 10:34 Harriet Cat M IM US VASCULAR ORD ERABLES documented in this encounter Visit Diagnoses Not on filedocumented in this encounter Care Teams Rug Cutter Relationship Specialty Start Date End Date Pritesh Chatman MD [address] [address] PCP - General 11/07/16 documented as of this encounter
--- OUTSIDE RECORDS SUMMARY | 2024-03-10 03:42 | XMS_ITS | Encounter Summary ---
Author Organization [facility] Address [address] [place] [address] Care Team Providers Care Flight Engineer Manager Name Role Phone Pritesh Chatman MD Primary Care Provider [phone] Encounter Details Date Type Department Care Team (Latest Contact Info) Description 06/21/2019 13:47 EST - 06/21/2019 23:59 EST Hospital Encounter [facility] Pulmonary Function Lab - [facility] [address] [place], [place] [address] Chronic obstructive pulmonary disease, unspecified COPD type ([facility]) Social History Tobacco Use Types Packs/Day [...] Dispensed Refills Start Date End Date acetylcysteine (X-ZZEIPV-S-CYSTEINE MISC) 600 mg by misc (non-drug; combo [...] EST Testing was performed and recorded in GBS. See complete report in scanned documents. documented [...] EST) 06/21/2019 17:4 6 EST Scan 2 Will Call Clerk PROCEDURE/MINOR SAJI GICAL ORDERABLES * PULMONARY FUNCTION REPORT - SCANNED (06/21/2019 14:46 EST) 06/21/2019 14:4 6 EST Scan 2 Will Call Clerk PROCEDURE/MINOR SAJI GICAL ORDERABLES documented in this encounter Visit Diagnoses Diagnosis Chronic obstructive pulmonary disease, unspecified COPD type ([facility]) documented in this encounter Administered Medications [...] 06/21/2019 documented in this encounter Care Teams Flight Engineer Manager Relationship Specialty Start Date End Date Pritesh Chatman MD [address] [address] PCP - General 11/07/16 documented as of this encounter
--- OUTSIDE RECORDS SUMMARY | 2024-03-10 03:42 | XMS_ITS | Encounter Summary ---
Author Organization [facility] Address [address] [place] [address] Care Team Providers Care Gis Developer Name Role Phone Pritesh Chatman MD Primary Care Provider [phone] Reason for Referral * (Routine) - Authorization Not Required Specialty Diagnoses / Procedures Referred By [facility] Referred To Contact Diagnoses Chronic obstructive pulmonary disease, unspecified COPD type (HCC-CMS) Procedures PULMONARY FUNCTION TESTING Christophe Mccray MD [address] [place] [phone] Referral ID Status Reason Start Date Expiration Date Visits Requested Visits Authorized [id number] Authorization Not Required 9 1 1 Encounter Details Date Type Department Care Team (Late st Contact Info) Description [address] [facility] Pulmonology & Critical Care - [address] [address] Christophe Mccray MD [address] [place] [phone] Chronic obstructive pulmonary disease, unspecified COPD [...] 2019 documented in this encounter Care Teams Gis Developer Relationship Specialty Start Date End Date Pritesh Chatman MD [address] [address] PCP - General 11/07/16 documented as of this encounter
--- OUTSIDE RECORDS SUMMARY | 2024-03-10 03:42 | XMS_ITS | Referral Summary ---
Author Organization [facility] Address [address] [place] [address] Care Team Providers Care Supervisor Powder And Primer Canning Name Role Phone Pritesh Chatman MD Primary Care Provider [phone] Allergies No known active allergies Medications Medication Sig Dispensed Refills Start Date End Date Status Omeprazole 20 mg tablet,delayed release (DR/EC) Take 20 mg by mouth daily. Active simvastatin (ZOCOR) 40 mg tablet Take 40 mg by mouth every evening. Active ergocalciferol, vitamin D2, (VITAMIN D ORAL) Take by mouth. Active acetylcysteine (U-BFRDLL-H-CYSTEINE MISC) 600 mg by misc (non-drug; combo [...] of Treatment Not on file Care Teams Supervisor Powder And Primer Canning Relationship Specialty Start Date End Date Pritesh Chatman MD [address] [place] [address] PCP - General 11/07/16
--- OUTSIDE RECORDS SUMMARY | 2024-03-10 03:42 | XMS_ITS | Encounter Summary ---
Author Organization [facility] Address [address] [place] [address] Care Team Providers Care Cognos Architect Name Role Phone Pritesh Chatman MD Primary Care Provider [phone] Encounter Details Date Type Department Care Team (Latest Contact Info) Description 09/20/2018 11:23 EST - 09/20/2018 23:59 EST Hospital Encounter [address] [address] Unknown, Provider, Discharge Disposition: Home or Self Care Social History Tobacco Use Types Packs/Day Years Used Date Smoking Tobacco: Never Assessed Sex and Gender Information Value Date Recorded Sex Assigned at Not on file Gender Identity Not on file Sexual Orientation Not on file documented as of this encounter Discharge Disposition Disposition Code Departure Means Destination Home or Self Skilled Nursing documented in this encounter Plan of Treatment Not on file documented as of this encounter Visit Diagnoses Not on filedocumented in this encounter Care Teams Cognos Architect Relationship Specialty Start Date End Date Pritesh Chatman MD [address] [facility] 6 [place] [address] PCP - General 11/07/16 documented as of this encounter
--- OUTSIDE RECORDS SUMMARY | 2024-03-10 03:42 | XMS_ITS | Encounter Summary ---
Author Organization [facility] Address [address] [place] [address] Care Team Providers Care Racing Car Driver Name Role Phone Pritesh Chatman MD Primary Care Provider [phone] Reason for Visit * Reason Onset Date Comments Patient Outreach 10/25/2019 Encounter Details Date Type Department Care Team (Late st Contact Info) Description 10/25/2019 Telephone [facility] Pulmonology & Critical Care - [address] [phone] Christophe Mccray MD [address] [place] [address], [address] [place] [address] Patient Outreach Social History Tobacco [...] 10/25/2019 1510 EDT S: Ct chest at [facility] recently B: Shazia patient. A: patient said he recently had chest CT done at [facility] R: requested image push and report faxed. [...] on filedocumented in this encounter Care Teams Racing Car Driver Relationship Specialty Start Date End Date Pritesh Chatman MD [address] [place] [address] PCP - General 11/07/16 documented as of this encounter
--- NOTE | 2024-03-10 12:27 | DI.US_ITS ---
APPROVED REPORT EXAM: Comprehensive 2D, Doppler, and color-flow Echocardiogram Patient Location: Out-Patient Court Supervisor: Eve Woody RDCS (AE) Indications: Dizziness, sycope Other Information Study Quality: Fair. Technically limited study due to body habitus. Conclusion Normal left ventricular wall thickness and chamber size. Ejection fraction is 55 to 60%. Wall motio n is normal Normal right ventricular size and function Both atria are normal in size There is no structural or hemodynamically significant valvular disease Estimated right ventricular systolic pressure is 30 mmHg Wall motion Left Ventricle Technically limited parasternal imaging. Very low imaging window. Measurements not performed The over all left ventricular systolic function appears normal. There is normal LV segmental wall motion. Ther e is no ventricular septal defect visualized. LVEF is 56%. Right Ventricle Right ventricle is grossly normal in size. Right ventricular systolic function is grossly normal. Atria The left atrium size is normal. The right atrium size is normal. The interatrial septum is intact wit h no evidence for an atrial septal defect. Aortic Valve The aortic valve is normal in structure. Aortic valve is trileaflet. There is no aortic valvular sten osis. No aortic regurgitation is present. Mitral Valve The mitral valve is normal in structure. No evidence of mitral valve stenosis. Trace mitral regurgita tion. Tricuspid Valve The tricuspid valve is normal in structure. There is no tricuspid valve stenosis. Trace tricuspid reg urgitation. The RVSP is 30.3mmHg. Pulmonic Valve The pulmonary valve is normal in structure. Imaged in subcostal view There is no pulmonic valvular st enosis. There is no pulmonic valvular regurgitation. Great Vessels The aortic root is normal in size. Ascending aorta is not well visualized. Aortic arch is not well vi sualized. IVC is normal in size and collapses >50% with inspiration. Pericardium There is no pericardial effusion. 2D Dimensions Ao Root d 3.20 cm M: 3.1 - 3.7 M-Mode TAPSE 2.34 cm (M/F) >1.7 Auto EF LV EDV A4C 82.8 mL LV EDV A2C 93.8 mL LV EDV BP 88.3 mL LV ESV A4C 37.2 mL LV ESV A2C 40.7 mL LV ESV BP 39.0 mL LVEF(%) A4C 55.1 % LVEF(%) A2C 56.6 % LVEF(%) BP 55.9 % LV SV A4C 45.6 ml LV SV A2C 53.1 ml LV SV BP 49.3 ml LV CO A4C 2.6 L/min LV CO A2C 3.3 L/min LV CO BP 2.9 L/min HR A4C 56.08 BPM HR A2C 61.65 BPM LV EDV Index (BP) LA Volume LA Length A4C 4.6 cm LA Length A2C 4.9 cm LA Area A4C s 13.26 cm2 LA Area A2C s 16.73 cm2 LA Vol A4C A-L 32.08 mL LA Vol A2C A-L 48.52 mL LA Vol Biplane A-L 40.5 mL LA Vol/BSA A4C A-L LA Vol/BSA A2C A-L LA Vol/BSA BP A-L 20.1 mL/m2 LA Vol A4C MOD 28.9 mL LA Vol A2C MOD 45.9 mL LA Vol BP MOD 37.2 mL RA Volume RA Area A4C 14.7 cm2 RA ESV A4C (A-L) 35.7mL RA Vol/BSA A4C A-L RA Length A4C 5.2 cm RA ESV A4C (MOD) 35.3mL LV Diastology MV E' medial 0.067 (>0.07 m/s) MV E Vmax 0.57 (0.4-1.3 m/s) MV E/E' MED 8.59 (<14) MV A Vmax 0.60 (0.4-1.3 m/s) MV E' lateral 0.103 (>0.1 m/s) E/A Ratio 0.9 MV E/E' LAT 5.60 (<14) MV E' Average 0.085 m/s MV E/E'(average) 6.78 Aortic Valve AoV Vmax 1.10 m/s LVOT Vmax 0.89 m/s AoV Peak Grad 4.8 mmHg LVOT Peak Grad 3.2 mmHg AoV Area (Vmax) 2.45 cm2 LVOT VTI 0.177 m AoV VTI 0.232 m LVOT Mean Grad 1.8 mmHg AoV Mean Teo. 0.73 m/s LVOT SV 53.68 mL AoV Mean Grad 2.5 mmHg LVOT Diam s 1.95 cm AoV Area (VTI) 2.32 cm2 AV Regurg Peak Gr. 4.85 mmHg Velocity Ratio 0.81 Mitral Valve MV DT 252 (160-240 msec) MV Vmax TIPS 0.59 m/s MV Mean Grad 0.5 (<2mmHg) MV VTI 0.210 m Pulmonary Valve PV Vmax 1.08 (0.5-1.5 m/s) RVOT Vmax 0.94 m/s PV Peak Grad 4.7 mmHg RVOT Peak Gr. 3.6 mmHg PV Mean Teo 0.78 m/s RVOT VTI 0.185 m PV Mean Grad 2.7 mmHg RVOT Mean Gr. 1.8 mmHg Tricuspid Valve RA Pressure 3.00 mmHg TR Vmax 2.61 m/s TV S' 0.13 m/s TR Peak Grad 27.2 mmHg RVSP (TR) 30.3 mmHg
== END 2024-03-10 04:00 ==
PROVIDERS: PCP Family Medicine; Visit Provider Physician Assistant Surgical
DX: R55 Syncope and collapse (principal)
CPT/HCPCS: 93306

== ENCOUNTER 2024-05-13 15:21 | Outpatient (CLI) | payer OTHER, SELFPAY ==
--- NOTE | 2024-05-13 15:58 | DI.RAD_ITS ---
Exam(s) XR THORACIC SPINE COMPLETE EXAM: XR THORACIC SPINE COMPLETE CLINICAL HISTORY: PAIN IN THORACIC SPINE M54.6. TECHNIQUE: 2D digital imaging was performed of the thoracic spine. Three views were obtained. AP, swimmer's and lateral views were obtained. COMPARISON: CR XR CHEST 2V PA LATERAL from 01/17/[address] CHEST PE CTA from 01/09/2024 FINDINGS: BONES: There is new mild compression of the T6 vertebral body. The vertebral bodies and posterior el ements are unremarkable. DISKS:There is a mild right convex curvature of the thoracic spine. Interverebral disc spaces are ma intained. SOFT TISSUE: Visualized lungs are clear. IMPRESSION: New mild T6 compression deformity. This is of indeterminate age. This was not present on the CT sca n from 01/09/2024. DATA REPOSITORY: RADIATION DOSE DELIVERED:
== END 2024-05-13 15:41 ==
PROVIDERS: PCP Student in an Organized Health Care Education/Training Program; Visit Provider Physician Assistant Medical
DX: S22.050A Wedge compression fracture of T5-T6 vertebra, initial encounter for closed fracture (principal); X58.XXXA Exposure to other specified factors, initial encounter
CPT/HCPCS: 72072

== ENCOUNTER 2024-05-20 11:32 | Emergency (ER) | payer OTHER, SELFPAY ==
--- NOTE | 2024-05-20 11:30 | DI.CT_ITS ---
Exam(s) CT THORACIC LUMBAR SPINE WO EXAM: CT THORACIC LUMBAR SPINE WO CLINICAL HISTORY: back pain. TECHNIQUE: Imaging Protocol: Axial computed tomography images with coronal and sagittal reformatted images were created and reviewed. CONTRAST MATERIAL: Intravenous: None COMPARISON: CT CT CHEST PE CTA from 01/09/2024 CR XR THORACIC SPINE COMPLETE from 05/13/2024 FINDINGS: THORACIC SPINAL COLUMN: There is a mild compression fracture of T6, as evident on recent plain films which not present CT images of 01/09/2024. There is approximately 20 percent height loss. There is also slight loss of height T7. There is no osseous compromise of the spinal canal at these levels. LUMBOSACRAL SPINAL COLUMN: There are Schmorl's node invagination in both superior and inferior endpla valentin of the L2 vertebral body, unchanged from 01/09/2024. There are no new fractures of the lumbar ve rtebrae. No listhesis. No pars defects. Vacuum phenomenon is seen within the L4-5 disc space which is slightly diminished in height. There is mild spinal canal stenosis at L2-3 level due to broad annular bulging, short AP dimensions o f the pedicles and some degenerative change in the facet joints. Similar findings at L3-4 level and L4-5 level. There is symmetrical moderate facet arthropathy at L5-S1. IMPRESSION: Mild compression fracture of T6 corresponding to what is seen on recent plain films. This was not ev ident on prior CT scan of 01/09/2024. There also appears to be slight loss of height of the adjacent T7 vertebral body. There is no osseous compromise of the canal at these levels. No fractures in the lumbosacral spine. Multilevel mild spinal canal stenosis noted as described omar humphrey. Called by myself to ER 05/20/2024 at 12:40 p.m. RADIATION DOSE DELIVERED: 1,641.27mGy.cm Total DLP DATA REPOSITORY: All CT scans at this facility are submitted to the National Radiology Data Registry (NRDR) Dose Index Registry (DIR) with the [employer] (ACR). RADIATION OPTIMIZATION: All CT scans at this facility use at least one of these dose optimization te chniques: automated exposure control; mA and/or kV adjustment per patient size (includes targeted exa ms where dose is matched to clinical indication); or iterative reconstruction.
[2024-05-20 11:33] VITALS: BP 179/83; PULSE 63; RESP 14; TEMP 36.4; O2SAT 90
--- OUTSIDE RECORDS SUMMARY | 2024-05-20 11:41 | XMS_ITS | Encounter Summary ---
Author Organization [facility] Address [address] [place] [address] Care Team Providers Care Bottoming Room Supervisor Name Role Phone Pritesh Chatman MD Primary Care Provider [phone] Reason for Visit * Reason Onset Date Comments Follow-up 10/27/2019 CT chest results per provider Encounter Details Date Type Department Care Team (Late st Contact Info) Description 10/27/2019 Telephone [facility] Pulmonology & Critical Care - [address] [address] Christophe Mccray MD [address] [place] [address], [address] 5 [place] [phone] Follow-up (CT chest results per provider) Social [...] on filedocumented in this encounter Care Teams Bottoming Room Supervisor Relationship Specialty Start Date End Date Pritesh Chatman MD [address] [place] [address] PCP - General 11/07/16 documented as of this encounter
--- OUTSIDE RECORDS SUMMARY | 2024-05-20 11:41 | XMS_ITS | Clinical Summary ---
Author Organization [facility] Address [address] [place] [address] Care Team Providers Care Expansion Joint Finisher Name Role Phone Pritesh Chatman MD Primary Care Provider [phone] Allergies No known active allergies Medications Medication Sig Dispensed Refills Start Date End Date Status Omeprazole 20 mg tablet,delayed release (DR/EC) Take 20 mg by mouth daily. Active simvastatin (ZOCOR) 40 mg tablet Take 40 mg by mouth every evening. Active ergocalciferol, vitamin D2, (VITAMIN D ORAL) Take by mouth. Active acetylcysteine (D-XKAYND-K-CYSTEINE MISC) 600 mg by misc (non-drug; combo [...] 2010 Fall Risk Screening 2015 COVID-19 Vaccine (2023- season) 2024 Care Teams Expansion Joint Finisher Relationship Specialty Start Date End Date Pritesh Chatman MD [address] [address] PCP - General 11/07/16
--- OUTSIDE RECORDS SUMMARY | 2024-05-20 11:41 | XMS_ITS | Encounter Summary ---
Author Organization [facility] Address [address] [place] [address] Care Team Providers Care Fish Boning Machine Feeder Name Role Phone Pritesh Chatman MD Primary Care Provider [phone] Encounter Details Date Type Department Care Team (Latest Contact Info) Description 12/06/2018 7:18 EDT - 12/06/2018 23:59 EDT Hospital Encounter [facility] [place] [facility] [address] [place] [address] Unknown, ProviderMD Discharge Disposition: Auto Discharge Social [...] on filedocumented in this encounter Care Teams Fish Boning Machine Feeder Relationship Specialty Start Date End Date Pritesh Chatman MD 4 [facility] 6 [place] [address] PCP - General 11/07/16 documented as of this encounter
--- OUTSIDE RECORDS SUMMARY | 2024-05-20 11:41 | XMS_ITS | Encounter Summary ---
Author Organization [facility] Address [address] [place] [address] Care Team Providers Care Customer Engagement Manager Name Role Phone Pritesh Chatman MD Primary Care Provider [phone] Encounter Details Date Type Department Care Team (Late st Contact Info) Description 01/24/2019 Results Only Imaging [facility] [phone] Unknown, Provider, Social History Tobacco Use Types [...] on filedocumented in this encounter Care Teams Customer Engagement Manager Relationship Specialty Start Date End Date Pritesh Chatman MD 4 [facility] 6 [place] [address] PCP - General 11/07/16 documented as of this encounter
--- OUTSIDE RECORDS SUMMARY | 2024-05-20 11:41 | XMS_ITS | Encounter Summary ---
Author Organization [facility] Address [address] [place] [address] Care Team Providers Care Retail Management Keyholder Name Role Phone Pritesh Chatman MD Primary Care Provider [phone] Encounter Details Date Type Department Care Team (Late st Contact Info) Description 12/06/2018 Historical Results Only [facility] Radiology Results [address] [place] [address] Yoko Teague, [facility] [address] [place] [address] Social History Tobacco Use Types [...] CC: ? Transcribed Date/Time: 12/06/2018 (1510) ? Diesel Instructor: ? Printed Date/Time: 04/13/2019 (1956) ? PAGE [...] Baldwin MD CC: Transcribed Date/Time: 12/06/2018 (1509) Diesel Instructor: Printed Date/Time: 04/13/2019 (1955) PAGE 1 Signed Report Yoko Teague DPM IMG DIAGNOSTIC DAMIEN GING ORDERABLES documented in this encounter Visit Diagnoses Not on filedocumented in this encounter Care Teams Retail Management Keyholder Relationship Specialty Start Date End Date Pritesh Chatman MD [address] [address] PCP - General 11/07/16 documented as of this encounter
--- OUTSIDE RECORDS SUMMARY | 2024-05-20 11:41 | XMS_ITS | Encounter Summary ---
Author Organization [facility] Address [address] [place] [address] Care Team Providers Care Disc Pad Grinding Machine Feeder Name Role Phone Pritesh Chatman MD Primary Care Provider [phone] Reason for Referral * (Routine) - Authorization Not Required Specialty Diagnoses / Procedures Referred By [facility] Referred To Contact Diagnoses Chronic obstructive pulmonary disease, unspecified COPD type (HCC-CMS) Procedures PULMONARY FUNCTION TESTING Christophe Mccray MD [address] [place] [phone] Referral ID Status Reason Start Date Expiration Date Visits Requested Visits Authorized [id number] Authorization Not Required 9 1 1 Encounter Details Date Type Department Care Team (Late st Contact Info) Description 2019 Orders Only [facility] Pulmonology & Critical Care - [address] [address] Christophe Mccray MD [address] [place] [phone] Chronic obstructive pulmonary disease, unspecified COPD [...] 2019 documented in this encounter Care Teams Disc Pad Grinding Machine Feeder Relationship Specialty Start Date End Date Pritesh Chatman MD [address] [address] PCP - General 11/07/16 documented as of this encounter
--- OUTSIDE RECORDS SUMMARY | 2024-05-20 11:41 | XMS_ITS | Encounter Summary ---
Author Organization [facility] Address [address] [place] [address] Care Team Providers Care Tower Director Name Role Phone Pritesh Chatman MD Primary Care Provider [phone] Encounter Details Date Type Department Care Team (Late st Contact Info) Description 01/19/2019 Orders Only [facility] Pulmonology & Critical Care - [facility] [address] [place], [place] [address] Wes Lino, RT Chronic obstructive pulmonary disease, [...] Primary documented in this encounter Care Teams Tower Director Relationship Specialty Start Date End Date Pritesh Chatman MD [address] [place] [address] PCP - General 11/07/16 documented as of this encounter
--- OUTSIDE RECORDS SUMMARY | 2024-05-20 11:41 | XMS_ITS | Encounter Summary ---
Author Organization [facility] Address [address] [place] [address] Care Team Providers Care Rn Oncology Name Role Phone Pritesh Chatman MD Primary Care Provider [phone] Reason for Visit * Reason Comments Telemedicine Phone Call Chronic Obstructive Pulmonary Disease Encounter Details Date Type Department Care Team (Late st Contact Info) Description 10/25/2019 14:00 EDT Telemedicine [facility] Pulmonology & Critical Care - [address] [address] Christophe Mccray MD [address] [place] [address], [address] [place] [phone] Chronic obstructive pulmonary disease, unspecified COPD type ([facility]) (Primary Dx) Social History Tobacco Use Types [...] to SOB. 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 [...] Chronic obstructive pulmonary disease, unspecified COPD type ([facility])- Primary documented in this encounter Discontinued Medications Medication Sig Discontinue Reason Start Date End Da te albuterol 90 mcg/actuation inhaler Inhale 2 Puffs as directed every 6 hours as needed for Wheezing. 10/25/2019 documented as of this encounter Care Teams Rn Oncology Relationship Specialty Start Date End Date Pritesh Chatman MD [address] [address] PCP - General 11/07/16 documented as of this encounter
--- OUTSIDE RECORDS SUMMARY | 2024-05-20 11:41 | XMS_ITS | Encounter Summary ---
Author Organization [facility] Address [address] [place] [address] Care Team Providers Care Radial Drill Press Operator For Plastic Name Role Phone Pritesh Chatman MD Primary Care Provider [phone] Encounter Details Date Type Department Care Team (Late st Contact Info) Description 01/12/2018 Historical Results Only [facility] - Main [place] [address] [place] [address] Harriet Cat DPM [address] [id number] Social History Tobacco Use Types Packs/Day Years [...] PREP (01/12/2018 14:04 EDT) GAURAV RESULT - [facility] SE[facility], FUNGAL ELEMENTS SEEN 01/12/2018 23:01 EDT [facility] Nail specimen (specimen) 01/12/2018 14:04 EDT 01/12/2018 17:59 EDT Comment:[place] Harriet Cat DPRishi URINALYSIS ORDERABL ES [facility] documented in this encounter Visit Diagnoses Not on filedocumented in this encounter Care Teams Radial Drill Press Operator For Plastic Relationship Specialty Start Date End Date Pritesh Chatman MD [address] [address] PCP - General 11/07/16 documented as of this encounter
--- OUTSIDE RECORDS SUMMARY | 2024-05-20 11:41 | XMS_ITS | Encounter Summary ---
Author Organization [facility] Address [address] [place] [address] Care Team Providers Care Circulation Analyst Name Role Phone Pritesh Chatman MD Primary Care Provider [phone] Encounter Details Date Type Department Care Team (Latest Contact Info) Description 09/20/2018 11:23 EST - 09/20/2018 23:59 EST Hospital Encounter [address] [address] Unknown, Provider, Discharge Disposition: Home or Self Care Social History Tobacco Use Types Packs/Day Years Used Date Smoking Tobacco: Never Assessed Sex and Gender Information Value Date Recorded Sex Assigned at Not on file Gender Identity Not on file Sexual Orientation Not on file documented as of this encounter Discharge Disposition Disposition Code Departure Means Destination Home or Self Mcfp documented in this encounter Plan of Treatment Not on file documented as of this encounter Visit Diagnoses Not on filedocumented in this encounter Care Teams Circulation Analyst Relationship Specialty Start Date End Date Pritesh Chatman MD 4 [facility] 6 [place] [address] PCP - General 11/07/16 documented as of this encounter
--- OUTSIDE RECORDS SUMMARY | 2024-05-20 11:41 | XMS_ITS | Encounter Summary ---
Author Organization [facility] Address [address] [place] [address] Care Team Providers Care Director Digital Strategy Name Role Phone Pritesh Chatman MD Primary Care Provider [phone] Encounter Details Date Type Department Care Team (Late st Contact Info) Description 02/25/2018 Results Only Imaging [facility] [phone] Harriet Cat, [facility] [address] [place] [phone] Social History Tobacco Use Types Packs/Day Years [...] 03/05/2018 10:34 EDT Vascular Diagnostic Laboratory [facility] Veterinary Medicine Doctor [facility], Level 5 [address] [facility] [place] [address] Technologist: Prakash Kirkpatrick Fellow: IMPRESSIONS Bilateral lower [...] 145mm Hg 1.2 ? Normal ? Dp ship captain ? triphasic ? + +--------+ + + + Right ? transmetatarsal ? + +--------+ + + + Right first digit ?? 67mm Hg 0.55 ? Diminished ? + +--------+ + + + Left thigh ? + +--------+ + + + Left calf ? + +--------+ + + + Left ankle ? 144mm Hg 1.19 ? Normal ? Dp ship captain ? triphasic ? + +--------+ + + + Left ? transmetatarsal ? + +--------+ + + + Left first digit ?? 104mm Hg 0.86 ? Diminished ? + +--------+ + + + * Electronically signed by: Angelo Nelson. 03/05/2018 10:34 Procedure Note Angelo Nelson MD - 03/05/2018 Vascular Diagnostic Laboratory [facility], Level [address] [place] [address] Technologist: Prakash Kirkpatrick Fellow: IMPRESSIONS Bilateral lower [...] Right ankle 145mm Hg 1.2 Normal Dp ship captain triphasic + +--------+ + + + Right transmetatarsal + +--------+ + + + Right first digit 67mm Hg 0.55 Diminished + +--------+ + + + Left thigh + +--------+ + + + Left calf + +--------+ + + + Left ankle 144mm Hg 1.19 Normal Dp ship captain triphasic + +--------+ + + + Left transmetatarsal + +--------+ + + + Left first digit 104mm Hg 0.86 Diminished + +--------+ + + + * Electronically signed by: Angelo Nelson 03/05/2018 10:34 Harriet Cat M IM US VASCULAR ORD ERABLES documented in this encounter Visit Diagnoses Not on filedocumented in this encounter Care Teams Director Digital Strategy Relationship Specialty Start Date End Date Pritesh Chatman MD [address] [address] PCP - General 11/07/16 documented as of this encounter
--- OUTSIDE RECORDS SUMMARY | 2024-05-20 11:41 | XMS_ITS | Encounter Summary ---
Author Organization [facility] Address [address] [place] [address] Care Team Providers Care Import And Export Clerk Name Role Phone Pritesh Chatman MD Primary Care Provider [phone] Reason for Visit * (Routine) - Receiving Office to Obtain Authorization Specialty Diagnoses / Procedures Referred By Marisol hughes Referred To Contact Procedures CT OUTSIDE IMAGES CHEST Unknown, ProviderMD Referral ID Status Reason Start Date Expiration Date Visits Requested Visits Authorized [id number] Receiving Office to Obtain Authorization 10/28/2019 1 1 Encounter Details Date Type Department Care Team (Latest Contact Info) Description 08/24/2019 - 08/24/2019 23:59 EST Hospital Encounter [facility] Radiology - Main [place] [address] [place] [address] Discharge Disposition: Home or Self Care Social [...] Dispensed Refills Start Date End Date acetylcysteine (V-SKMJXL-V-CYSTEINE MISC) 600 mg by misc (non-drug; combo [...] on filedocumented in this encounter Care Teams Import And Export Clerk Relationship Specialty Start Date End Date Pritesh Chatman MD 4 [facility] 6 [place] [address] PCP - General 11/07/16 documented as of this encounter
--- OUTSIDE RECORDS SUMMARY | 2024-05-20 11:41 | XMS_ITS | Encounter Summary ---
Author Organization [facility] Address [address] [place] [address] Care Team Providers Care Chlorinator Name Role Phone Desiree Yu MD Primary Care Provider [phone] Encounter Details Date Type Department Care Team (Late st Contact Info) Description 09/20/2018 Results Only [facility]- [facility] [phone] Tim Hassan MD [address] [place] [address] [address] [place], [place] [id number] Social History Tobacco Use Types Packs/Day Years [...] ? SHANTAL CORDOVA ? Accession #: ? [id number] ? : ? 1950 (Age: 68) ??M [...] is entirely submitted in C1. ANJALI Reese ([facility]) 09/21/2018 7:48 AM End of Report [facility] 09/20/2018 17:1 4 EST 09/20/2018 17:14 EST Tim Hassan MD PATHOLOGY ORDERA YANELIS [facility] [address] [place] [address] documented in this encounter Visit Diagnoses Not on filedocumented in this encounter Care Teams Chlorinator Relationship Specialty Start Date End Date Desiree Yu MD [address] [place] [address] PCP - General 11/07/16 documented as of this encounter
--- OUTSIDE RECORDS SUMMARY | 2024-05-20 11:41 | XMS_ITS | Referral Summary ---
Author Organization [facility] Address [address] [place] [address] Care Team Providers Care Screw Machine Operator Swiss Type Name Role Phone Pritesh Chatman MD Primary Care Provider [phone] Allergies No known active allergies Medications Medication Sig Dispensed Refills Start Date End Date Status Omeprazole 20 mg tablet,delayed release (DR/EC) Take 20 mg by mouth daily. Active simvastatin (ZOCOR) 40 mg tablet Take 40 mg by mouth every evening. Active ergocalciferol, vitamin D2, (VITAMIN D ORAL) Take by mouth. Active acetylcysteine (Q-DEABVX-K-CYSTEINE MISC) 600 mg by misc (non-drug; combo [...] of Treatment Not on file Care Teams Screw Machine Operator Swiss Type Relationship Specialty Start Date End Date Pritesh Chatman MD [address] [place] [address] PCP - General 11/07/16
--- OUTSIDE RECORDS SUMMARY | 2024-05-20 11:41 | XMS_ITS | Encounter Summary ---
Author Organization [facility] Address [address] [place] [address] Care Team Providers Care Molecular Biology Scientist Name Role Phone Pritesh Chatman MD Primary Care Provider [phone] Encounter Details Date Type Department Care Team (Latest Contact Info) Description 06/21/2019 13:47 EST - 06/21/2019 23:59 EST Hospital Encounter [facility] Pulmonary Function Lab - [facility] [address] [place], [place] [phone] Chronic obstructive pulmonary disease, unspecified COPD type ([facility]) Social History Tobacco Use Types Packs/Day [...] Dispensed Refills Start Date End Date acetylcysteine (D-WXSGEK-V-CYSTEINE MISC) 600 mg by misc (non-drug; combo [...] EST Testing was performed and recorded in [employer]. See complete report in scanned documents. documented [...] EST) 06/21/2019 17:4 6 EST Scan 2 Financial Reporting Advisor PROCEDURE/MINOR SAJI GICAL ORDERABLES * PULMONARY FUNCTION REPORT - SCANNED (06/21/2019 14:46 EST) 06/21/2019 14:4 6 EST Scan 2 Financial Reporting Advisor PROCEDURE/MINOR SAJI GICAL ORDERABLES documented in this encounter Visit Diagnoses Diagnosis Chronic obstructive pulmonary disease, unspecified COPD type ([facility]) documented in this encounter Administered Medications [...] 06/21/2019 documented in this encounter Care Teams Molecular Biology Scientist Relationship Specialty Start Date End Date Pritesh Chatman MD [address] [address] PCP - General 11/07/16 documented as of this encounter
--- OUTSIDE RECORDS SUMMARY | 2024-05-20 11:41 | XMS_ITS | Encounter Summary ---
Author Organization [facility] [place] [address] Care Team Providers Care Saw Edge Fuser Circular Name Role Phone Ta Meier MD Primary Care Provider [phone] Encounter Details Date Type Department Care Team (Late st Contact Info) Description 04/27/2014 [place] [phone] Ta Meier MD [address] [place] [address] Social History Tobacco Use Types Packs/Day Years Used Date Smoking Tobacco: Never Assessed Sex and Gender Information Value Date Recorded Sex Assigned at Not on file Gender Identity Not on file Sexual Orientation Not on file documented as of this encounter Plan of Treatment Not on file documented as of this encounter Visit Diagnoses Not on filedocumented in this encounter Care Teams Saw Edge Fuser Circular Relationship Specialty Start Date End Date Ta Meier MD [address] [place], [place] [address] PCP - General 04/27/14 07/06/18 documented as of this encounter
--- OUTSIDE RECORDS SUMMARY | 2024-05-20 11:41 | XMS_ITS | Encounter Summary ---
Author Organization [facility] Address [address] [place] [address] Care Team Providers Care Cashier Wrapper Name Role Phone Pritesh Chatman MD Primary Care Provider [phone] Reason for Visit * Reason Onset Date Comments Patient Outreach 10/25/2019 Encounter Details Date Type Department Care Team (Late st Contact Info) Description 10/25/2019 Telephone [facility] Pulmonology & Critical Care - [address] [phone] Christophe Mccray MD [address] [place] [address], [address] [place] [address] Patient Outreach Social History Tobacco [...] he recently had chest CT done at [facility] R: requested image push and [...] on filedocumented in this encounter Care Teams Cashier Wrapper Relationship Specialty Start Date End Date Pritesh Chatman MD [address] [place] [address] PCP - General 11/07/16 documented as of this encounter
--- OUTSIDE RECORDS SUMMARY | 2024-05-20 11:41 | XMS_ITS | Encounter Summary ---
Author Organization [facility] Address [address] [place] [address] Care Team Providers Care Supervisor Telephone Answering Service Name Role Phone Pritesh Chatman MD Primary Care Provider [phone] Reason for Referral * (Routine) - Authorization Not Required Specialty Diagnoses / Procedures Referred By Contac t Referred To Contact Diagnoses Chronic obstructive pulmonary disease, unspecified COPD type ([facility]) Procedures PULMONARY FUNCTION TESTING Christophe Mccray MD [address] [place] [address] [address] [place] [address] Referral ID Status Reason Start Date Expiration Date Visits Requested Visits Authorized [id number] Authorization Not Required 9 1 1 Reason for Visit * Reason Comments Exertional Dyspnea * Consult (Routine) - Closed Specialty Diagnoses / Procedures Referred By Contac t Referred To Contact Pulmonary Disease Diagnoses COPD (chronic obstructive pulmonary disease) ([facility]) Doris Pickens, TRANSVERSE ABDOMINAL MUSCLE SURGEON [address] [place] [address] [place] [address] [place] [address] Referral ID Status Reason Start Date Expiration Date Visits Re quested Visits Authorized [id number] Closed 1 1 Encounter Details Date Type Department Care Team (Late st Contact Info) Description 06/21/2019 15:00 EST Office Visit [facility] Pulmonology & Critical Care - [facility] [address] [place] [address] Christophe Mccray MD [address] [facility], Level [address] [place] [phone] Chronic obstructive pulmonary disease, unspecified COPD type [...] O2 Sat: 95 % Post/Recovery: 0 Maximal CANID: 0 Post Oxygen liter/min: room air Walked [...] 0LPM 6 min 72 95 0 LPM [id number] walked: 1440 feet. T96est performed by: RT NAN Dat95e: 06/21/2019 Time: 16:32 Pager/Contact No.: [phone] Provider Interpretation: Normal 6 min walk distance with no desaturation. Authenticating provider: Shazia Date: 06/21/19 Time: [phone] Pager/Contact No.: [phone] * Wes Lino RT - 06/21/2019 1500 EST Patient Education Topic: combivent respimat Method: Demonstration and Verbal Taught to: Caregiver and Patient Barriers: None Outcomes: verbalized understanding and return demonstration * Wes Parks MD - 06/21/2019 1500 EST Progress Note Location: [facility] pulmonary clinic Patient's name: Shantal Lowe Date: 06/21/2019 ID: Shantal is a pleasant 69 y.o. 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 CC: dyspnea HPI: He was first diagnosed with COPD sometime before 2004, and he has been on Spiriva, Symbicort, and albuterol PRN since then. He has seen a decline in his function, specifically he can't walk as far. For example, they usuallydo a certain hike in [place] and he couldn't do the hike this [...] and had heart disease. SH: Lives in [place], [place]. Here with his pleasant . Lived in [facility] [place] [place] previously ([facility] [place] Cabin in [place]. 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 He smoked [...] #Chronic obstructive pulmonary disease, unspecified COPD type ([facility]): on today's PFTs (see above), noted to [...] call if desired to be done at [facility]. Disposition / Follow up: follow up in [...] pulmonary disease, unspecified COPD type ([facility]) Ordered: 06/21/2019 documented as of this encounter Visit Diagnoses Diagnosis Chronic obstructive pulmonary disease, unspecified COPD type ([facility])- Primary documented in this encounter [...] Dispensed Refills Start Date End Date acetylcysteine (X-LRGGGN-E-CYSTEINE MISC) 600 mg by misc (non-drug; combo [...] 10/25/2019 added in this encounter Care Teams Supervisor Telephone Answering Service Relationship Specialty Start Date End Date Pritesh Chatman MD [address] [place] [address] PCP - General 11/07/16 documented as of this encounter
--- OUTSIDE RECORDS SUMMARY | 2024-05-20 11:41 | XMS_ITS | Clinical Summary ---
Author Organization Count Includes [facility] Address [facility] [place] [address] Care Team Providers Care Electroplating Worker Name Role Phone Unknown Primary Care Provider [...] Hepatitis C Screening 1968 Lipid Screening 1968 Tetanus/Diphtheria/Pertussis Vaccines (1 - Tdap) 06/13 Zoster vaccine (1 of 2) 2000 Advance Directive 2005 Pneumoccocal Vaccine: 65+ (1 of 1 - PCV) 2015 Covid-19 Vaccine (1 - season) 2024 Influenza (Flu) vaccine (1 o f 1 - Influenza standard series) 03/27/2024 Care Teams Electroplating Worker Relationship Specialty Start Date End Date Unknown None PCP - General 07/07/18
--- OUTSIDE RECORDS SUMMARY | 2024-05-20 11:41 | XMS_ITS | Encounter Summary ---
Author Organization [facility] Address [address] [place] [address] Care Team Providers Care Credit Analysis Manager Name Role Phone Pritesh Chatman MD Primary Care Provider [phone] Encounter Details Date Type Department Care Team (Late st Contact Info) Description 01/26/2019 Historical Results Only [facility] - Main [place] [address] [place], [place] [address] Cynthia Ayon MD [address] [place] [phone] Social History Tobacco Use Types Packs/Day [...] Date/Time Associated Diagnosis Comments ANAEROBIC CULTURE - [facility] Routine 01/26/2019 11:47 EDT FUNGAL CULTURE - OTHER SITES - [facility] Routine 01/26/2019 11:47 EDT SURGICAL PATHOLOGY Routine 01/26/2019 documented in this encounter Results * FUNGAL CULTURE - OTHER [facility] - [facility] (01/26/2019 11:47 EDT) FUNGUS ISOLATED? - [facility] NO FUNGI ISOLATED, FIRST READING 02/23/2019 8:35 EDT [facility] FUNGUS ISOLATED? - [facility] NO FUNGI ISOLATED AT 4 WEEKS 02/23/2019 8:35 EDT [facility] 01/26/2019 11:4 7 EDT 01/26/2019 12:30 EDT Narrative [facility] - 02/23/2019 8:35 EDT COMMENTS: RIGHT FOOT 2ND TOE CLEAN END OF BONE Does PT Have a Latex Allergy? NO Cynthia Ayon MD MICROBIOLOGY - GENERAL ORDERABLES [facility] * ANAEROBIC CULTURE - [facility] (01/26/2019 11:47 EDT) Anaerobe Culture 01/29/2019 10:35 EDT [facility] Anaerobe Culture NO ANAEROBES ISOLATED IN 48 HOURS 01/29/2019 10:35 EDT [facility] Anaerobe Culture TISSUE SUBMITTED-RIGHT FOOT SECOND TOE CLEAN END OF BONE Result called to LUIZA GORDON IN SDS 01/26/19 1324: Result called by MARCIA 01/30/2019 12:25 EDT [facility] BACTERIA SEEN - [facility] NO 01/30/2019 12:25 EDT [facility] WBC NO 01/30/2019 12:25 EDT [facility] PTH-Related Peptide STAPHYLOCOCCUS SP COAG NEG 01/30/2019 7:27 EDT [facility] QUANT - [facility] BROTH ONLY 01/30/2019 7:27 EDT [facility] 01/26/2019 11:4 7 EDT 01/26/2019 12:29 EDT Comment:R2T Narrative [facility] - 01/30/2019 12:25 EDT COMMENTS: [...] Cynthia Ayon MD MICROBIOLOGY - GENERAL ORDERABLES [facility] * SURGICAL PATHOLOGY (01/26/2019) 01/26/2019 01/26/2019 12: 54 EDT Narrative [facility] - 02/01/2019 12:31 EDT ----- ------- Name: SHANTAL CORDOVA ? : 50 ?Age/Sex: 68/M ?Unit#: [id number] ? Loc: SDS ? Status: DEP SDC ?? Reg Date: 01/26/19 ? Pt.Phone Number: ? ----- ------- Specimen: [id number] ? STATUS: SOUT ?Spec Date:01/26/19 ? Physician Copies: ?Cynthia Ayon MD ? Tissues: A ?? 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 Guido Jarquin MD ? CPT: 10457 ?? Units: ??1 ? [id number] ? 1 ?FINAL DIAGNOSIS ? TOE, RIGHT [...] confirmed the above diagnosis. Test Performed by [facility], [address] [place] [id number] Education Trainer: Gale Nunn MD PHD ----- ------- Cynthia Ayon MD PATHOLOGY ORDER LESVIA [facility] documented in this encounter Visit Diagnoses Not on filedocumented in this encounter Care Teams Credit Analysis Manager Relationship Specialty Start Date End Date Pritesh Chatman MD [address] [address] PCP - General 11/07/16 documented as of this encounter
--- OUTSIDE RECORDS SUMMARY | 2024-05-20 11:41 | XMS_ITS | Encounter Summary ---
Author Organization [facility] Address [address] [place] [address] Care Team Providers Care Technical Artist Name Role Phone Pritesh Chatman MD Primary Care Provider [phone] Reason for Visit * Reason Onset Date Comments Coordination Of Care 08/01/2019 Encounter Details Date Type Department Care Team (Late st Contact Info) Description 08/01/2019 Telephone [facility] Pulmonology & Critical Care - [address] [phone] Christophe Mccray MD [address] [facility], [address] [place] [address] Coordination Of Care Social History [...] them rescheduled for sometime around November at [facility]. Left my chart message as home number listed comes back as being disconnected. * Telephone Encounter - Christophe Mccray MD - 08/04/2019 1452 EST Leon Harvey. We wanted to see him in 6 months from last visit with repeat jj to see how he is doing. If he had recent jj at [facility] within the last month or so than that would be fine. Also, he had indicated he would prefer to get low dose CT closer to home ([facility]), but we can order it here if he would prefer. Christophe Dias * Telephone Encounter - Armando Nunn - 08/01/2019 3531 EST Per Harriett, got letter regarding PFT at [facility]. Per Harriett, patient already got PFT does not feel he needs another one. Per Harriett, is also having a hard time getting a low dose CT scan scheduled. documented in this encounter Plan of Treatment Not on file documented as of this encounter Visit Diagnoses Not on filedocumented in this encounter Care Teams Technical Artist Relationship Specialty Start Date End Date Pritesh Chatman MD [address] [place] [address] PCP - General 11/07/16 documented as of this encounter
--- OUTSIDE RECORDS SUMMARY | 2024-05-20 11:41 | XMS_ITS | Encounter Summary ---
Author Organization [facility] Address [address] [place] [address] Care Team Providers Care Associate Professor Of Media Arts Name Role Phone Pritesh Chatman MD Primary Care Provider [phone] Reason for Visit * Reason Onset Date Comments Follow-up 08/09/2019 jj for [facility] Encounter Details Date Type Department Care Team ([facility] st Contact Info) Description 08/09/2019 Telephone [facility] Pulmonology & Critical Care - [address] [phone] Christophe Mccray MD [address] [facility], [address] [place] [phone] Follow-up (jj for [facility]) Social History Tobacco Use Types Packs/Day Years [...] breath documented in this encounter Care Teams Associate Professor Of Media Arts Relationship Specialty Start Date End Date Pritesh Chatman MD [address] [facility] [address] [place] [address] PCP - General 11/07/16 documented as of this encounter
[2024-05-20] MEDS: Acetaminophen 500 MG TAB 1000 MG PO (12:05)
[2024-05-20] MEDS: Pregabalin 100 MG CAP PO (12:34)
[2024-05-20 14:04] VITALS: BP 179/83; PULSE 63; RESP 14; TEMP 36.4; O2SAT 90
--- NOTE | 2024-05-20 14:53 | ED.GENADUL_ITS ---
Discharge Plan Disposition Patient Disposition: Home Discharge Details Clinical Impression: T6 vertebral fracture Primary Care Provider: Luisito Garnett ED Provider: Kasia Mcdonald Home Meds and New Rx's Prescriptions: New pregabalin [Lyrica] 75 mg capsule 75 mg PO TID 30 Days Qty: 90 0RF No Action ipratropium-albuterol 0.5 mg-3 mg(2.5 mg base)/3 mL solution for nebulization 3 ml inhalation 6XD albuterol sulfate [ProAir HFA] 8.5 GM HFA aerosol inhaler 2 puff Inhalation Q4H PRN fluticasone propionate [Flonase Allergy Relief] 9.9 ML spray,suspension 9.9 ml NS BID PRN triamcinolone acetonide 0.1 % cream 1 applic topical BID Breztri Aerosphere 160-9-4.8 mcg/actuation HFA aerosol inhaler 2 inh inhalation BID 90 Days Qty: 32 12RF ibuprofen 800 mg tablet 800 mg PO TID Patient Comments: TAKE ONE TABLET BY MOUTH THREE TIMES A DAY WITH FOOD budesonide 0.5 mg/2 mL suspension for nebulization 0.5 mg inhalation BID Patient Comments: INHALE ONE VIAL VIA NEBULIZER TWICE A DAY Discharge Instructions Additional Instructions: * A referral has been sent to the spine clinic at [facility]. They will contact you for follow-up. * Return to the emergency department with any numbness, tingling, weakness in your upper extremities * Continue Motrin and Tylenol for pain. Start Lyrica as prescribed as well. HPI General Date/Time Provider Initiated Documentation: 05/20/24 11:40 . Limitations to Documentation: no limitations . Information obtained by: patient . HPI Narrative: 73-year-old gentleman presents for evaluation of back pain. Symptoms started sometime ago after lifting a very heavy bag of feed. Patient reports persistent pain in the middle of his back. He was evaluated at urgent care and had an x- ray that demonstrated a fracture. His PCP had ordered an outpatient MRI to further evaluate the fracture, but the patient has not been able to get it done because the insurance refuses to provide prior authorization. The patient has been having significant back pain that is constant and not relieved with Motrin or Tylenol. He denies any numbness weakness or tingling. He denies any change in bowel or bladder. Related Data Home Medications ?Medication ?Instructions ?Recorded ?Confirmed Flonase Allergy Relief 50 9.9 ml NS BID PRN 03/15/18 05/20/24 mcg/actuation nasal spray,suspension (fluticasone propionate) ProAir HFA 90 mcg/actuation 2 puff inhalation Q4H PRN 03/15/18 05/20/24 aerosol inhaler (albuterol sulfate) triamcinolone acetonide 0.1 % 1 applic topical BID 06/09/22 05/20/24 topical cream ipratropium 0.5 mg-albuterol 3 mg 3 ml inhalation 6XD 01/21/24 05/20/24 (2.5 mg base)/3 mL nebulization soln Breztri Aerosphere 160 2 inh inhalation BID 90 days #32 02/22/24 05/20/24 mcg-9mcg-4.8mcg/actuation HFA grams aerosol inhaler (phustjqmil-ykpiuysm-xqqhokztyu) budesonide 0.5 mg/2 mL suspension 0.5 mg inhalation BID 05/20/24 05/20/24 for nebulization ibuprofen 800 mg tablet 800 mg PO TID 05/20/24 05/20/24 pregabalin 75 mg capsule (Lyrica) 75 mg PO TID 1 month #90 caps 05/20/24 Previous Rx's ?Medication ?Instructions ?Recorded Breztri Aerosphere 160 2 inh inhalation BID 90 days #32 02/22/24 mcg-9mcg-4.8mcg/actuation HFA grams aerosol inhaler (xjixryevez-eehmxbxz-rmvsptumni) pregabalin 75 mg capsule (Lyrica) 75 mg PO TID 1 month #90 caps 05/20/24 Allergies Allergy/AdvReac Type Severity Reaction Status Date / Time No Known Allergies Allergy Unverified 05/20/24 11:35 General Stated Complaint: Nk/Back Pain JAGUAR: 3 Exam Narrative Exam Narrative: Review of Systems: All systems reviewed & are unremarkable except as noted in HPI and below Well-developed, no acute distress NCAT PERRL, normal conjunctiva RRR Unlabored respiratory effort Midline back tenderness around T5, no lumbar tenderness, normal gait, good strength and sensation in bilateral lower extremities Course Vital Signs Vital signs: Vital Signs Temperature 36.4 C 05/20/24 11:33 Pulse 63 05/20/24 11:33 Respiratory Rate 14 05/20/24 11:33 Blood Pressure 179/83 H 05/20/24 11:33 Pulse Oximetry 90 L 05/20/24 11:33 Temperature 36.4 C 05/20/24 14:04 Temperature Source Skin 05/20/24 11:33 Pulse 63 05/20/24 14:04 Respiratory Rate 14 05/20/24 14:04 Respiratory Effort Normal 05/20/24 14:04 Blood Pressure 179/83 H 05/20/24 14:04 Blood Pressure Position Sitting 05/20/24 11:33 Pulse Oximetry 90 L 05/20/24 14:04 Oxygen Delivery Method Room Air 05/20/24 11:33 Oxygen Flow Rate 0 05/20/24 11:33 Pain Level 10 05/20/24 11:33 Medical Decision Making Emergent evaluation of midline back tenderness. Symptoms have been ongoing for quite some time and not acute. There is no associated neurologic deficit. He has an outpatient x-ray that is concerning for fracture. CT imaging was obtained to further evaluate this fracture: Mild compression fracture of T6 corresponding to what is seen on recent plain films. This was not evident on prior CT scan of 01/09/2024. There also appears to be slight loss of height of the adjacent T7 vertebral body. There is no osseous compromise of the canal at these levels. Patient will be referred to spine service at [facility] for further management. At this time there are no acute interventions necessary. The patient was provided a dose of Lyrica in the emergency department which did seem to improve his symptoms. I will send a prescription for this medication and recommend continued Motrin and Tylenol for pain. Return precautions advised. Quality:SDOH Health Related Social Needs: No Data to Display PFSH All Active Problems T6 vertebral fracture (Acute) COPD (chronic obstructive pulmonary disease) (Chronic) COPD (chronic obstructive pulmonary disease) (Chronic) severe. FEV1 30-49% Weight loss (Acute) Smoking (Acute) Raynaud's phenomenon (Acute) Lung nodule (Acute) Encounter for screening for malignant neoplasm of colon (Acute) Dyspnea (Acute) Colorectal polyps (Acute ~09/20/18) Medical History Frostbite with tissue necrosis of foot Erectile dysfunction Depression GERD (gastroesophageal reflux disease) Elevated blood pressure reading in office without diagnosis of hypertension Neck pain Syncope Hyperlipidemia Seasonal allergies Seborrheic keratosis MAURICIO (obstructive sleep apnea) Onychomycosis of toenail Surgical History S/P colonoscopy (~09/20/18) Family History Father Lung disease Mother Heart disease Social History Smoking/Tobacco Use Status: Former Tobacco Use tobacco type: cigarettes Quit Date: 06/26/23 Pack-years: 110 Tobacco: How many years used: 55 Second Hand Exposure: Yes (as a child, not currently) Smoking risk assessment performed?: Yes Alcohol Intake: former Drug use: Never Substance use type: does not use 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
== END 2024-05-20 14:04 | disposition home or self-care (01) ==
PROVIDERS: Emergency Provider Emergency Medicine; PCP Student in an Organized Health Care Education/Training Program
DX: S22.058D Other fracture of T5-T6 vertebra, subsequent encounter for fracture with routine healing (principal); J44.9 Chronic obstructive pulmonary disease, unspecified; E78.5 Hyperlipidemia, unspecified; M51.46 Schmorl's nodes, lumbar region; Z87.891 Personal history of nicotine dependence; X58.XXXD Exposure to other specified factors, subsequent encounter
CPT/HCPCS: 99284; 72128; 72131; 99283

== ENCOUNTER 2024-05-27 13:34 | Outpatient (REF) | payer OTHER, SELFPAY ==
--- OUTSIDE RECORDS SUMMARY | 2024-05-27 13:37 | XMS_ITS | Encounter Summary ---
Author Organization [facility] Address [address] [place] [address] Care Team Providers Care Project Systems Engineer Name Role Phone Pritesh Chatman MD Primary Care Provider [phone] Encounter Details Date Type Department Care Team (Late st Contact Info) Description 01/24/2019 Results Only Imaging [facility] [phone] Unknown, Provider, Social History Tobacco Use Types [...] on filedocumented in this encounter Care Teams Project Systems Engineer Relationship Specialty Start Date End Date Pritesh Chatman MD [address] [facility] [address] [place] [address] PCP - General 11/07/16 documented as of this encounter
--- OUTSIDE RECORDS SUMMARY | 2024-05-27 13:37 | XMS_ITS | Encounter Summary ---
Author Organization [facility] Address [address] [place] [address] Care Team Providers Care Legal Office Administrator Name Role Phone Pritesh Chatman MD Primary Care Provider [phone] Encounter Details Date Type Department Care Team (Late st Contact Info) Description 01/19/2019 Orders Only [facility] Pulmonology & Critical Care - [facility] [address] [place], [place] [phone] Wes Lino, RT Chronic obstructive pulmonary disease, [...] Primary documented in this encounter Care Teams Legal Office Administrator Relationship Specialty Start Date End Date Pritesh Chatman MD [address] [place] [address] PCP - General 11/07/16 documented as of this encounter
--- OUTSIDE RECORDS SUMMARY | 2024-05-27 13:37 | XMS_ITS | Encounter Summary ---
Author Organization [facility] Address [address] [place] [address] Care Team Providers Care Technical Sme Name Role Phone Pritesh Chatman MD Primary Care Provider [phone] Encounter Details Date Type Department Care Team (Latest Contact Info) Description 12/06/2018 7:18 EDT - 12/06/2018 23:59 EDT Hospital Encounter [facility] [address] [place] [address] Unknown, Provider, Discharge Disposition: Auto Discharge Social History Tobacco [...] filedocumented in this encounter Care Teams Technical Sme Relationship Specialty Start Date End Date Pritesh Chatman MD 4 [facility] [address] [place] [address] PCP - General 11/07/16 documented as of this encounter
--- OUTSIDE RECORDS SUMMARY | 2024-05-27 13:37 | XMS_ITS | Encounter Summary ---
Author Organization [facility] Address [address] [place] [address] Care Team Providers Care Manager Package Name Role Phone Pritesh Chatman MD Primary Care Provider [phone] Reason for Visit * Reason Onset Date Comments Patient Outreach 10/25/2019 Encounter Details Date Type Department Care Team (Late st Contact Info) Description 10/25/2019 Telephone [facility] Pulmonology & Critical Care - [address] [phone] Christophe Mccray MD [address] [place] [address], [address] [place] [address] Patient Outreach Social History Tobacco [...] 10/25/2019 1510 EDT S: Ct chest at [facility] recently B: Shazia patient. A: patient said he recently had chest CT done at [facility] R: requested image push and report faxed. [...] on filedocumented in this encounter Care Teams Manager Package Relationship Specialty Start Date End Date Pritesh Chatman MD [address] [place] [address] PCP - General 11/07/16 documented as of this encounter
--- OUTSIDE RECORDS SUMMARY | 2024-05-27 13:37 | XMS_ITS | Encounter Summary ---
Author Organization [facility] Address [address] [place] [address] Care Team Providers Care Range Mechanic Name Role Phone Pritesh Chatman MD Primary Care Provider [phone] Reason for Referral * (Routine) - Authorization Not Required Specialty Diagnoses / Procedures [facility] To Contact Diagnoses Chronic obstructive pulmonary disease, unspecified COPD type (HCC-CMS) Procedures PULMONARY FUNCTION TESTING Christophe Mccray MD [address] [place] [phone] Referral ID Status Reason Start Date Expiration Date Visits Requested Visits Authorized [id number] Authorization Not Required 9 1 1 Encounter Details Date Type Department Care Team (Late st Contact Info) Description 2019 Orders Only [facility] Pulmonology & Critical Care - [address] [address] Christophe Mccray MD [address] [place] [phone] Chronic obstructive pulmonary disease, unspecified COPD [...] 2019 documented in this encounter Care Teams Range Mechanic Relationship Specialty Start Date End Date Pritesh Chatman MD [address] [address] PCP - General 11/07/16 documented as of this encounter
--- OUTSIDE RECORDS SUMMARY | 2024-05-27 13:37 | XMS_ITS | Encounter Summary ---
Author Organization [facility] Address [address] [place] [address] Care Team Providers Care Casting Room Helper Name Role Phone Pritesh Chatman MD Primary Care Provider [phone] Encounter Details Date Type Department Care Team (Late st Contact Info) Description 01/26/2019 Historical Results Only [facility] Lab - Main [place] [address] [place], [place] [phone] Cynthia Ayon MD [address] [place] [phone] Social History Tobacco Use Types Packs/Day [...] Date/Time Associated Diagnosis Comments ANAEROBIC CULTURE - [facility] Routine 01/26/2019 11:47 EDT FUNGAL CULTURE - OTHER SITES - [facility] Routine 01/26/2019 11:47 EDT SURGICAL PATHOLOGY Routine 01/26/2019 documented in this encounter Results * FUNGAL CULTURE - OTHER [facility] - [facility] (01/26/2019 11:47 EDT) FUNGUS ISOLATED? - [facility] NO FUNGI ISOLATED, FIRST READING 02/23/2019 8:35 EDT [facility] FUNGUS ISOLATED? - [facility] NO FUNGI ISOLATED AT 4 WEEKS 02/23/2019 8:35 EDT [facility] 01/26/2019 11:4 7 EDT 01/26/2019 12:30 EDT Narrative [facility] - 02/23/2019 8:35 EDT COMMENTS: RIGHT FOOT 2ND TOE CLEAN END OF BONE Does PT Have a Latex Allergy? NO Cynthia Ayon MD MICROBIOLOGY - GENERAL ORDERABLES [facility] * ANAEROBIC CULTURE - [facility] (01/26/2019 11:47 EDT) Anaerobe Culture 01/29/2019 10:35 EDT [facility] Anaerobe Culture NO ANAEROBES ISOLATED IN 48 HOURS 01/29/2019 10:35 EDT [facility] Anaerobe Culture TISSUE SUBMITTED-RIGHT FOOT SECOND TOE CLEAN END OF BONE Result called to LUIZA GORDON IN SDS 01/26/19 1324: Result called by MARCIA 01/30/2019 12:25 EDT [facility] BACTERIA SEEN - [facility] NO 01/30/2019 12:25 EDT [facility] WBC NO 01/30/2019 12:25 EDT [facility] PTH-Related Peptide STAPHYLOCOCCUS SP COAG NEG 01/30/2019 7:27 EDT [facility] QUANT - [facility] BROTH ONLY 01/30/2019 7:27 EDT [facility] 01/26/2019 11:4 7 EDT 01/26/2019 12:29 EDT Comment:R2T Narrative [facility] - 01/30/2019 12:25 EDT COMMENTS: [...] Cynthia Ayon MD MICROBIOLOGY - GENERAL ORDERABLES [facility] * SURGICAL PATHOLOGY (01/26/2019) 01/26/2019 01/26/2019 12: 54 EDT Narrative [facility] - 02/01/2019 12:31 EDT ----- ------- Name: SHANTAL CORDOVA ? : 50 ?Age/Sex: 68/M ?Unit#: [id number] ? Loc: SDS ? Status: DEP SDC ?? Reg Date: 01/26/19 ? Pt.Phone Number: ? ----- ------- Specimen: [id number] ? STATUS: SOUT ?Spec Date:01/26/19 ? Physician Copies: ?Cynthia Ayon MD ? Tissues: A ?? 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 Guido Jarquin MD ? CPT: 05981 ?? Units: ??1 ? [id number] ? 1 ?FINAL DIAGNOSIS ? TOE, RIGHT [...] confirmed the above diagnosis. Test Performed by [facility], [address] [place] [id number] Box Gluer: Gale Nunn MD PHD ----- ------- Cynthia Ayon MD PATHOLOGY ORDER LESVIA [facility] documented in this encounter Visit Diagnoses Not on filedocumented in this encounter Care Teams Casting Room Helper Relationship Specialty Start Date End Date Pritesh Chatman MD [address] [address] PCP - General 11/07/16 documented as of this encounter
--- OUTSIDE RECORDS SUMMARY | 2024-05-27 13:37 | XMS_ITS | Encounter Summary ---
Author Organization [facility] Address [address] [place] [address] Care Team Providers Care Automotive Technology Instructor Name Role Phone Pritesh Chatman MD Primary Care Provider [phone] Reason for Visit * Reason Onset Date Comments Coordination Of Care 08/01/2019 Encounter Details Date Type Department Care Team (Late st Contact Info) Description 08/01/2019 Telephone [facility] Pulmonology & Critical Care - [address] [phone] Christophe Mccray MD [address] [facility], Level 5 [place] [address] Coordination Of Care Social History [...] them rescheduled for sometime around November at [facility]. Left my chart message as home number listed comes back as being disconnected. * Telephone Encounter - Christophe Mccray MD - 08/04/2019 1452 EST Leon Harvey. We wanted to see him in 6 months from last visit with repeat jj to see how he is doing. If he had recent jj at [facility] within the last month or so than that would be fine. Also, he had indicated he would prefer to get low dose CT closer to home ([facility]), but we can order it here if he would prefer. Christophe Dias * Telephone Encounter - Armando Nunn - 08/01/2019 4925 EST Per Harriett, got letter regarding PFT at [facility]. Per Harriett, patient already got PFT does not feel he needs another one. Per Harriett, is also having a hard time getting a low dose CT scan scheduled. documented in this encounter Plan of Treatment Not on file documented as of this encounter Visit Diagnoses Not on filedocumented in this encounter Care Teams Automotive Technology Instructor Relationship Specialty Start Date End Date Pritesh Chatman MD [address] [place] [address] PCP - General 11/07/16 documented as of this encounter
--- OUTSIDE RECORDS SUMMARY | 2024-05-27 13:37 | XMS_ITS | Encounter Summary ---
Author Organization [facility] Address [address] [place] [address] Care Team Providers Care Pbx Manager Name Role Phone Desiree Yu MD Primary Care Provider [phone] Encounter Details Date Type Department Care Team (Late st Contact Info) Description 09/20/2018 Results Only [facility] [phone] Tim Hassan MD [address] [place] [address] [address] [place], [place] [phone] Social History Tobacco Use Types Packs/Day Years [...] when reading/interpret ing unformatted reports. Name: ? TASHA SHANTAL Segura ? Accession #: ? [id number] ? : ? 1950 (Age: 68) ??M ? Collect Date: ? 09/20/2018 ? Location: ? [facility] ? Receive Date: ? 09/20/2018 ? Provider: TIM HASSAN MD Copy to: DSEIREE YU MD ? Final Pathologic Diagnosis: A. [...] is entirely submitted in C1. ANJALI Reese ([facility]) 09/21/2018 7:48 AM End of Report [facility] 09/20/2018 17:1 4 EST 09/20/2018 17:14 EST Tim Hassan MD PATHOLOGY ORDERA YANELIS [facility] [address] [place] [address] documented in this encounter Visit Diagnoses Not on filedocumented in this encounter Care Teams Pbx Manager Relationship Specialty Start Date End Date Desiree Yu MD [address] [place] [address] PCP - General 11/07/16 documented as of this encounter
--- OUTSIDE RECORDS SUMMARY | 2024-05-27 13:37 | XMS_ITS | Encounter Summary ---
Author Organization [facility] Address [address] [place] [address] Care Team Providers Care Heart Coordinator Name Role Phone Pritesh Chatman MD Primary Care Provider [phone] Encounter Details Date Type Department Care Team (Latest Contact Info) Description 09/20/2018 11:23 EST - 09/20/2018 23:59 EST Hospital Encounter [address] [address] Unknown, Provider, Discharge Disposition: Home or Self [...] on filedocumented in this encounter Care Teams Heart Coordinator Relationship Specialty Start Date End Date Pritesh Chatman MD [address] [facility] 6 [place] [address] PCP - General 11/07/16 documented as of this encounter
--- OUTSIDE RECORDS SUMMARY | 2024-05-27 13:37 | XMS_ITS | Referral Summary ---
Author Organization [facility] Address [address] [place] [address] Care Team Providers Care Mold Filler Name Role Phone Pritesh Chatman MD Primary Care Provider [phone] Allergies No known active allergies Medications Medication Sig Dispensed Refills Start Date End Date Status Omeprazole 20 mg tablet,delayed release (DR/EC) Take 20 mg by mouth daily. Active simvastatin (ZOCOR) 40 mg tablet Take 40 mg by mouth every evening. Active ergocalciferol, vitamin D2, (VITAMIN D ORAL) Take by mouth. Active acetylcysteine (G-YPQGYB-I-CYSTEINE MISC) 600 mg by misc (non-drug; combo [...] of Treatment Not on file Care Teams Mold Filler Relationship Specialty Start Date End Date Pritesh Chatman MD [address] [place] [address] PCP - General 11/07/16
--- OUTSIDE RECORDS SUMMARY | 2024-05-27 13:37 | XMS_ITS | Encounter Summary ---
Author Organization [facility] Address [address] [place] [address] Care Team Providers Care Spice Fumigator Name Role Phone Pritesh Chatman MD Primary Care Provider [phone] Reason for Visit * Reason Comments Telemedicine Phone Call Chronic Obstructive Pulmonary Disease Encounter Details Date Type Department Care Team (Late st Contact Info) Description 10/25/2019 14:00 EDT Telemedicine [facility] Pulmonology & Critical Care - [address] [address] Christophe Mccray MD [address] [place] [address], Level 5 [place] [phone] Chronic obstructive pulmonary disease, unspecified COPD type ([facility]) (Primary Dx) Social History Tobacco Use [...] SOB. 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 [...] Chronic obstructive pulmonary disease, unspecified COPD type ([facility])- Primary documented in this encounter Discontinued Medications Medication Sig Discontinue Reason Start Date End Da te albuterol 90 mcg/actuation inhaler Inhale 2 Puffs as directed every 6 hours as needed for Wheezing. 10/25/2019 documented as of this encounter Care Teams Spice Fumigator Relationship Specialty Start Date End Date Pritesh Chatman MD [address] [address] PCP - General 11/07/16 documented as of this encounter
--- OUTSIDE RECORDS SUMMARY | 2024-05-27 13:37 | XMS_ITS | Encounter Summary ---
Author Organization [facility] Address [address] [place] [address] Care Team Providers Care Gravure Press Set Up Operator Name Role Phone Pritesh Chamtan MD Primary Care Provider [phone] Reason for Visit * Reason Onset Date Comments Follow-up 10/27/2019 CT chest results per provider Encounter Details Date Type Department Care Team (Late st Contact Info) Description 10/27/2019 Telephone [facility] Pulmonology & Critical Care - [address] [address] Christophe Mccray MD [address] [place] [address], Level 5 [place] [phone] Follow-up (CT chest results per provider) Social [...] on filedocumented in this encounter Care Teams Gravure Press Set Up Operator Relationship Specialty Start Date End Date Pritesh Chatman MD [address] [place] [address] PCP - General 11/07/16 documented as of this encounter
--- OUTSIDE RECORDS SUMMARY | 2024-05-27 13:37 | XMS_ITS | Encounter Summary ---
Author Organization [facility] Address [address] [place] [address] Care Team Providers Care Xerox Machine Operator Name Role Phone Pritesh Chatman MD Primary Care Provider [phone] Reason for Visit * Reason Onset Date Comments Follow-up 08/09/2019 [place] [facility] Encounter Details Date Type Department Care Team ([facility] st Contact Info) Description 08/09/2019 Telephone [facility] Pulmonology & Critical Care - [address] [address] Christophe Mccray MD [address] [facility], Level 5 [place] [phone] Follow-up (jj for [facility] Social History Tobacco Use [...] breath documented in this encounter Care Teams Xerox Machine Operator Relationship Specialty Start Date End Date Pritesh Chatman MD [address] [facility] 6 [place] [address] PCP - General 11/07/16 documented as of this encounter
--- OUTSIDE RECORDS SUMMARY | 2024-05-27 13:37 | XMS_ITS | Encounter Summary ---
Author Organization [facility] Address [address] [place] [address] Care Team Providers Care Electronics Engineering Manager Name Role Phone Pritesh Chatman MD Primary Care Provider [phone] Encounter Details Date Type Department Care Team (Late st Contact Info) Description 02/25/[address] [facility] [phone] Harriet Cat, [facility] [address] [place] [address] Social History Tobacco Use Types Packs/Day Years [...] 03/05/2018 10:34 EDT Vascular Diagnostic Laboratory [facility] Furniture Associate [facility], Level 5 [address] [facility] [place] [address] Technologist: Prakash Kirkpatrick Fellow: IMPRESSIONS Bilateral lower [...] MD - 03/05/2018 Vascular Diagnostic Laboratory [facility], Level [address] [place] [address] Technologist: Prakash Kirkpatrick Fellow: IMPRESSIONS Bilateral lower [...] on filedocumented in this encounter Care Teams Electronics Engineering Manager Relationship Specialty Start Date End Date Pritesh Chatman MD [address] [address] PCP - General 11/07/16 documented as of this encounter
--- OUTSIDE RECORDS SUMMARY | 2024-05-27 13:37 | XMS_ITS | Encounter Summary ---
Author Organization [facility] Address [address] [place] [address] Care Team Providers Care Tour Production Supervisor Name Role Phone Pritesh Chatman MD Primary Care Provider [phone] Encounter Details Date Type Department Care Team (Late st Contact Info) Description 01/12/2018 Historical Results Only [facility] - Main [place] [address] [place] [address] Harriet Cat DPM [address] [phone] Social History Tobacco Use Types Packs/Day Years [...] PREP (01/12/2018 14:04 EDT) GAURAV RESULT - [facility] SEEN, FUNGAL ELEMENTS SEEN 01/12/2018 23:01 EDT [facility] Nail specimen (specimen) 01/12/2018 14:04 EDT 01/12/2018 17:59 EDT Comment:TN Harriet Cat DPRishi URINALYSIS ORDERABL ES [facility] documented in this encounter Visit Diagnoses Not on filedocumented in this encounter Care Teams Tour Production Supervisor Relationship Specialty Start Date End Date Pritesh Chatman MD [address] [address] PCP - General 11/07/16 documented as of this encounter
--- OUTSIDE RECORDS SUMMARY | 2024-05-27 13:37 | XMS_ITS | Encounter Summary ---
Author Organization [facility] Address [address] [place] [address] Care Team Providers Care Radar Repairer Name Role Phone Pritesh Chatman MD Primary Care Provider [phone] Encounter Details Date Type Department Care Team (Late st Contact Info) Description 12/06/[address] [facility] Radiology Results [address] [place] [address] Yoko Teague, [facility] [address] [place] [address] Social History Tobacco Use Types [...] CC: ? Transcribed Date/Time: 12/06/2018 (1510) ? Blade Bender Furnace Tender: ? Printed Date/Time: 04/13/2019 (1956) ? PAGE [...] Baldwin MD CC: Transcribed Date/Time: 12/06/2018 (1509) Blade Bender Furnace Tender: Printed Date/Time: 04/13/2019 (1955) PAGE 1 Signed Report Yoko Teague DPM IMG DIAGNOSTIC DAMIEN GING ORDERABLES documented in this encounter Visit Diagnoses Not on filedocumented in this encounter Care Teams Radar Repairer Relationship Specialty Start Date End Date Pritesh Chatman MD [address] [address] PCP - General 11/07/16 documented as of this encounter
--- OUTSIDE RECORDS SUMMARY | 2024-05-27 13:37 | XMS_ITS | Clinical Summary ---
Author Organization [facility] Address [address] [place] [address] Care Team Providers Care Tucking Machine Operator Name Role Phone Pritesh Chatman MD Primary Care Provider [phone] Allergies No known active allergies Medications Medication Sig Dispensed Refills Start Date End Date Status Omeprazole 20 mg tablet,delayed release (DR/EC) Take 20 mg by mouth daily. Active simvastatin (ZOCOR) 40 mg tablet Take 40 mg by mouth every evening. Active ergocalciferol, vitamin D2, (VITAMIN D ORAL) Take by mouth. Active acetylcysteine (V-VDPIXU-Q-CYSTEINE MISC) 600 mg by misc (non-drug; combo [...] COVID-19 Vaccine (2023- season) 2024 Care Teams Tucking Machine Operator Relationship Specialty Start Date End Date Pritesh Chatman MD [address] [address] PCP - General 11/07/16
--- OUTSIDE RECORDS SUMMARY | 2024-05-27 13:37 | XMS_ITS | Encounter Summary ---
Author Organization [facility] [place] [address] Care Team Providers Care Windows Desktop Support Name Role Phone Luisito Garnett Primary Care Provider + Reason for Referral * Consultation (Urgent) - Denied Specialty Diagnoses / Procedures Referred By Contac t Referred To Contact [facility] Diagnoses Examination, medical, general Kasia Mcdonald MD [address] [place] [address] [place] [address] [facility] [place] [address] Referral ID Status Reason Start Date Expiration Date V isits Requested Visits Authorized [id number] Denied Consult, Test & Treat PCP Updated and/or Approved 05/23/2024 05/23/2025 6 0 Encounter Details Date Type Department Care Team (Late Contact Info) Description 05/23/2024 Transcribe Orders [facility] Incoming Referrals [phone] Kasia Mcdonald MD [address] [place] [address] [address] [place], [place] [phone] Examination, medical, general Social History Tobacco Use Types Packs/Day Years Used Date Smoking Tobacco: Never Assessed Sex and Gender Information Value Date Recorded Sex Assigned at Not on file Gender Identity Not on file Sexual Orientation Not on file documented as of this encounter Plan of Treatment Scheduled Referrals Name Type Priority Associated Diagnoses Orde r Schedule Referral to Spine Center Outpatient Referral Urgent Examination, medical, general Ordered: 05/23/2024 documented as of this encounter Visit Diagnoses Diagnosis Examination, medical, general Unspecified general medical examination documented in this encounter Care Teams Windows Desktop Support Relationship Specialty Start Date End Date Luisito Garnett [place] [address] PCP - General Internal Medicine 05/23/24 documented as of this encounter
--- OUTSIDE RECORDS SUMMARY | 2024-05-27 13:37 | XMS_ITS | Clinical Summary ---
[place] [address] Care Team Providers Care Driver Lifter Of Sanitation Truck Name Role Phone Luisito Garnett Primary Care Provider + Encounters Date Type Department Care Team Description 05/23/2024 Transcribe Orders [facility] Incoming Referrals [phone] Kasia Mcdonald MD Examination, medical, general from Last 3 Months Social History Tobacco Use Types Packs/Day Years [...] - Influenza standard series) 03/27/2024 Care Teams Driver Lifter Of Sanitation Truck Relationship Specialty Start Date End Date Luisito Garnett PA [address] [place] [address] PCP - General Internal Medicine 05/23/24
--- OUTSIDE RECORDS SUMMARY | 2024-05-27 13:37 | XMS_ITS | Encounter Summary ---
Author Organization [facility] Address [address] [place] [address] Care Team Providers Care Grain Elevator Man Name Role Phone Pritesh Chatman MD Primary Care Provider [phone] Reason for Visit * (Routine) - Receiving Office to Obtain Authorization Specialty Diagnoses / Procedures Referred By Marisol hughes Referred To Contact Procedures CT OUTSIDE IMAGES CHEST Unknown, Provider, MD AZUL [place] Referral ID Status Reason Start Date Expiration Date Visits Requested Visits Authorized [id number] Receiving Office to Obtain Authorization 10/28/2019 1 1 Encounter Details Date Type Department Care Team (Latest Contact Info) Description 08/24/2019 - 08/24/2019 23:59 EST Hospital Encounter [facility] Radiology - Main [place] [address] [place] [address] Discharge Disposition: Home or Self Care Social [...] Dispensed Refills Start Date End Date acetylcysteine (Y-ELISKO-W-CYSTEINE MISC) 600 mg by misc (non-drug; combo [...] a non-reportable exam. Physician Fa_General IMG OTHER IMAGIN G ORDERABLES BANDAR documented in this encounter Visit Diagnoses Not on filedocumented in this encounter Care Teams Grain Elevator Man Relationship Specialty Start Date End Date Pritesh Chatman MD [address] [facility] 6 [place] [address] PCP - General 11/07/16 documented as of this encounter
--- OUTSIDE RECORDS SUMMARY | 2024-05-27 13:37 | XMS_ITS | Encounter Summary ---
Author Organization [facility] Address [address] [place] [address] Care Team Providers Care Laborer Cheesemaking Name Role Phone Pritesh Chatman MD Primary Care Provider [phone] Reason for Referral * (Routine) - Authorization Not Required Specialty Diagnoses / Procedures Referred By Contac t Referred To Contact Diagnoses Chronic obstructive pulmonary disease, unspecified COPD type ([facility]) Procedures PULMONARY FUNCTION TESTING Christophe Mccray MD [address] [place] [address] [address] [place] [address] Referral ID Status Reason Start Date Expiration Date Visits Requested Visits Authorized [id number] Authorization Not Required 9 1 1 Reason for Visit * Reason Comments Exertional Dyspnea * Consult (Routine) - Closed Specialty Diagnoses / Procedures Referred By Contcarlos alberto t Referred To Contact Pulmonary Disease Diagnoses COPD (chronic obstructive pulmonary disease) ([facility]) Doris Pickens, FINGERPRINT EXPERT [address] [place] [address] [place] [address] [address] [place] [address] Referral ID Status Reason Start Date Expiration Date Visits Re quested Visits Authorized [id number] Closed 1 1 Encounter Details Date Type Department Care Team (Late st Contact Info) Description 06/21/2019 15:00 EST Office Visit [facility] Pulmonology & Critical Care - [facility] [address] [place] [address] Christophe Mccray MD [address] [facility], Level [address] [place] [phone] Chronic obstructive pulmonary disease, unspecified COPD type [...] 0LPM 6 min 72 95 0 LPM [id number] walked: 1440 feet. T96est performed by: RT NAN Dat95e: 06/21/2019 Time: 16:32 Pager/Contact No.: [phone] Provider Interpretation: Normal 6 min walk distance with no desaturation. Authenticating provider: Shazia Date: 06/21/19 Time: 5776 Pager/Contact No.: [phone] * Wes Lino RT - 06/21/2019 1500 EST Patient Education Topic: combivent respimat Method: Demonstration and Verbal Taught to: Caregiver and Patient Barriers: None Outcomes: verbalized understanding and return demonstration * Wes Parks MD - 06/21/2019 1500 EST Progress Note Location: [facility] pulmonary clinic Patient's name: Shantal Lowe Date: 06/21/2019 ID: Shantal is a pleasant 69 y.o. 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 CC: dyspnea HPI: He was first diagnosed with COPD sometime before 2004, and he has been on Spiriva, Symbicort, and albuterol PRN since then. He has seen a decline in his function, specifically he can't walk as far. For example, they usuallydo a certain hike in [place] and he couldn't do the hike this [...] and had heart disease. SH: Lives in [place], [place]. Here with his pleasant . Lived in [facility] [place] ([facility] near [place]). Cabin in [place]. 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 He smoked [...] #Chronic obstructive pulmonary disease, unspecified COPD type ([facility]): on today's PFTs (see above), noted to [...] call if desired to be done at [facility]. Disposition / Follow up: follow up in [...] Chronic obstructive pulmonary disease, unspecified COPD type ([facility]) Ordered: 06/21/2019 documented as of this encounter Visit Diagnoses Diagnosis Chronic obstructive pulmonary disease, unspecified COPD type ([facility])- Primary documented in this encounter [...] Dispensed Refills Start Date End Date acetylcysteine (P-OYMVSN-H-CYSTEINE MISC) 600 mg by misc (non-drug; combo [...] 10/25/2019 added in this encounter Care Teams Laborer Cheesemaking Relationship Specialty Start Date End Date Pritesh Chatman MD [address] [place] [address] PCP - General 11/07/16 documented as of this encounter
--- OUTSIDE RECORDS SUMMARY | 2024-05-27 13:37 | XMS_ITS | Encounter Summary ---
Author Organization [facility] Address [address] [place] [address] Care Team Providers Care Harness Cleaner Name Role Phone Pritesh Chatman MD Primary Care Provider [phone] Encounter Details Date Type Department Care Team (Latest Contact Info) Description 06/21/2019 13:47 EST - 06/21/2019 23:59 EST Hospital Encounter [facility] Pulmonary Function Lab - [facility] [address] [place], [place] [address] Chronic obstructive pulmonary disease, unspecified COPD type ([facility]) Social History Tobacco Use Types Packs/Day [...] Dispensed Refills Start Date End Date acetylcysteine (J-MRZKYH-I-CYSTEINE MISC) 600 mg by misc (non-drug; combo [...] EST Testing was performed and recorded in [facility]. See complete report in scanned documents. documented [...] EST) 06/21/2019 17:4 6 EST Scan 2 Cash On Delivery Clerk PROCEDURE/MINOR SAJI GICAL ORDERABLES * PULMONARY FUNCTION REPORT - SCANNED (06/21/2019 14:46 EST) 06/21/2019 14:4 6 EST Scan 2 Cash On Delivery Clerk PROCEDURE/MINOR SAJI GICAL ORDERABLES documented in this encounter Visit Diagnoses Diagnosis Chronic obstructive pulmonary disease, unspecified COPD type ([facility]) documented in this encounter Administered Medications [...] 06/21/2019 documented in this encounter Care Teams Harness Cleaner Relationship Specialty Start Date End Date Pritesh Chatman MD [address] [address] PCP - General 11/07/16 documented as of this encounter
--- OUTSIDE RECORDS SUMMARY | 2024-05-27 13:37 | XMS_ITS | Encounter Summary ---
[place] [address] Care Team Providers Care Spinner Concrete Pipe Name Role Phone Ta Meier MD Primary Care Provider [phone] Encounter Details Date Type Department Care Team (Late st Contact Info) Description 04/27/2014 [place] [address] Ta Meier MD [address] [place] [address] Social History Tobacco Use Types Packs/Day Years Used Date Smoking Tobacco: Never Assessed Sex and Gender Information Value Date Recorded Sex Assigned at Not on file Gender Identity Not on file Sexual Orientation Not on file documented as of this encounter Plan of Treatment Not on file documented as of this encounter Visit Diagnoses Not on filedocumented in this encounter Care Teams Spinner Concrete Pipe Relationship Specialty Start Date End Date Ta Meier MD [address] [place] [address] PCP - General 04/27/14 07/06/18 documented as of this encounter
[2024-05-27 16:03] LABS: Abs Immature Grans 0.04 10^3/uL (0.0-0.06); Absolute Basophil Count 0.08 10^3/uL (0.0-0.2); Absolute Eosinophil Count 0.19 10^3/uL (0.0-0.7); Absolute Lymphocyte Count 1.55 10^3/uL (1.2-3.4); Absolute Monocyte Count 0.81 10^3/uL (0.1-0.8); Absolute Neutrophil Count 6.45 10^3/uL (1.2-6.7); Basophils % 0.9 %; Eosinophils % 2.1 %; HCT 45.7 % (40.0-50.0); Immature Grans % 0.4 %; MCH 31.1 pg (27.0-33.0); MCHC 32.8 % (32.0-36.0); MCV 95 fL (80-95); Monocytes % 8.9 %; Neutrophils % 70.7 %; Platelet Count 235 10^3/uL (130-400); RBC 4.83 10^6/uL (4.36-5.78); RDW 12.4 % (11.8-14.1); RDW-SD 43.2 fL; WBC 9.12 10^3/uL (4.4-10.8)
[2024-05-27 17:24] LABS: ALT 20 U/L (16-63); AST 14 U/L (15-37); Albumin 3.7 g/dL (3.4-5.0); Alkaline Phosphatase 101 U/L (46-116); Anion Gap 8.2 mmol/L (3-11); BUN 19 mg/dL (7-18); Bilirubin, Total 0.36 mg/dL (0.2-1.0); CO2 30.8 mmol/L (21.0-32.0); CREATININE 1.2 mg/dL (0.70-1.30); Calcium 9.1 mg/dL (8.5-10.1); Chloride 110 mmol/L (98-107); Estimated GFR 63.85 (mL/min/1.73m2); Glucose 62 mg/dL (74-106); Potassium 4.3 mmol/L (3.5-5.1); Sodium 149 mmol/L (136-145); TSH (W/Ref FT4) 5.62 uIU/mL (0.36-3.74); Total Protein 6.3 g/dL (6.4-8.2); Vitamin D 25 Total 20.4 ng/mL (30-100)
[2024-05-27 17:48] LABS: FREE T4 0.85 ng/dL (0.76-1.46)
[2024-05-27 23:09] LABS: Parathyroid Hormone,Intact 46 pg/mL (19-88)
[2024-05-30 14:26] LABS: Albumin 66.3 % (55.8-66.1); Total Protein 6.1 g/dL (6.3-8.2)
[2024-05-30 21:45] LABS: Tissue Transglutaminase Ab IgG 2.2 U/mL
== END 2024-05-27 13:35 | disposition home or self-care (01) ==
LOC: NCHCN 13:34
PROVIDERS: PCP Student in an Organized Health Care Education/Training Program; Visit Provider Student in an Organized Health Care Education/Training Program
DX: M48.54XA Collapsed vertebra, not elsewhere classified, thoracic region, initial encounter for fracture (principal); E55.9 Vitamin D deficiency, unspecified
CPT/HCPCS: 80053; 82306; 86364; 83970; 84165; 84439; 84443; 85025

== ENCOUNTER 2024-07-04 01:47 | Outpatient (CLI) | payer OTHER, SELFPAY ==
--- NOTE | 2024-07-04 | DI.DEXA_ITS ---
Exam(s) XR DEXA BONE DENSITY W/WO CORETTA EXAM: XR DEXA BONE DENSITY W/WO CORETTA CLINICAL HISTORY: Collapsed vertebra, lumbar region, initial encounter for fx, M48.56XA TECHNIQUE: Routine DEXA evaluation of the lumbar spine, hip, or forearm. COMPARISON: No exams were available for comparison FINDINGS: Performed on a Hologic unit. Lateral image: Mild compression fracture at superior endplate of L3. Lumbar Spine total T-score: -1.6 Hip total T-score:-0.9 Independent reading at the level of the femoral neck yields T-score of -1.3 Forearm total T-score: 0.4 IMPRESSION: Bone mineral density measures in the osteopenia range. Fracture risk is moderate. Note: Any spine fracture indicates 5x risk for subsequent spine fracture and 2x risk for subsequent h ip fracture. World Health Organization criteria for BMD interpretation classify patients: Normal...... T- Score at or above -1.0 Osteopenic... T- Score between -1.0 and -2.5 Osteoporosis... T-Score at or below -2.5
--- NOTE | 2024-07-04 | DI.US_ITS ---
Exam(s) US AAA SCREENING EXAM: US AAA SCREENING CLINICAL HISTORY: Screening for cardiovascular disorders, Z13.6 COMPARISON: CT CT CHEST PE CTA from 01/09/2024 US US ECHOCARDIOGRAM from 03/10/2024 FINDINGS: There is no evidence of significant abdominal aortic aneurysm. The most proximal aspect aorta exhibi ts maximum diameter 2.6 cm and the distal aorta tapers normally. There is mild dilatation the bilateral common iliac arteries. Right common iliac artery exhibits carol meter 1.4 cm. Left common iliac artery exhibits diameter 1.5 cm. IMPRESSION: No evidence of abdominal significant abdominal aortic aneurysm. There is an element of arteriomegaly of the common iliac arteries with diameter measurements as above . DATA REPOSITORY:
== END 2024-07-04 02:07 ==
PROVIDERS: PCP Student in an Organized Health Care Education/Training Program; Visit Provider Student in an Organized Health Care Education/Training Program
DX: M48.56XA Collapsed vertebra, not elsewhere classified, lumbar region, initial encounter for fracture (principal); M85.89 Other specified disorders of bone density and structure, multiple sites
CPT/HCPCS: 76706; 77080

== ENCOUNTER 2024-07-13 03:33 | Outpatient (CLI) | payer OTHER, SELFPAY ==
--- NOTE | 2024-07-13 11:25 | DI.MRI_ITS ---
Exam(s) MR THORACIC SPINE WO EXAM: MR THORACIC SPINE WO CLINICAL HISTORY: Closed wedge compression fx of T6 vertebra, initial encounter, S22.050A. TECHNIQUE: Multiplanar multisequence MRI of the Thoracic spine was performed. COMPARISON: CT CT CHEST PE CTA from 01/09/2024 CR XR THORACIC SPINE COMPLETE from 05/13/2024 CR XR DEXA BONE DENSITY W/WO CORETTA from 07/04/2024 FINDINGS: Bones: There are anterior wedging deformities of T5, T6, T7 and T8. Compared to the CT scan from 12/25, T5 and T8 are stable. There is mild hyperintense signal seen in the T7 vertebral body and a question of further mild loss of height anteriorly since 01/09/2024. Alignment is satisfactory. Mild e ndplate degenerative signal changes are seen in the mid and lower thoracic spine. There is also mild heterogeneous signal seen in the superior endplate of T6 and a question of mild further loss of heig ht of the vertebral body anteriorly. The remaining vertebral bodies are stable in height. Cord: The thoracic cord is normal size and signal intensity. No intrinsic cord lesion is present. Discs: No disc herniation or bulge is present. No central spinal canal or neural foraminal stenosis i s seen in the thoracic spine. Soft tissues: Normal. IMPRESSION: 1. Interval mild further compression of the T6 and T7 vertebral bodies since 01/09/2024 with mild alex atous signal within the marrow. 2. No focal disc herniation, central spinal canal or neural foraminal stenosis is seen in the thoraci c spine. DATA REPOSITORY:
== END 2024-07-13 03:53 ==
LOC: DI 03:34
PROVIDERS: PCP Student in an Organized Health Care Education/Training Program; Visit Provider Physician Assistant
DX: S22.050D Wedge compression fracture of T5-T6 vertebra, subsequent encounter for fracture with routine healing (principal); X58.XXXD Exposure to other specified factors, subsequent encounter
CPT/HCPCS: 72146

== ENCOUNTER → 2024-08-25 09:39 | Outpatient (BNVA) | payer MEDICARE, SELFPAY | PROVIDERS: PCP Student in an Organized Health Care Education/Training Program; Referring Provider Family Medicine; Visit Provider Physician Assistant Surgical | DX: J44.9 Chronic obstructive pulmonary disease, unspecified (principal) | CPT/HCPCS: 99214 ==

== ENCOUNTER 2024-12-27 16:21 | Outpatient (REF) | payer MEDICARE, SELFPAY ==
[2024-12-27 18:58] LABS: ESR 6 mm/hr (0-20)
[2024-12-27 18:59] LABS: HCT 46.2 % (40.0-50.0); HGB 15.1 g/dL (13.5-17.5); MCH 30.3 pg (27.0-33.0); MCHC 32.7 % (32.0-36.0); MCV 93 fL (80-95); MPV 11.1 fL (8.0-11.0); Platelet Count 188 10^3/uL (130-400); RBC 4.98 10^6/uL (4.36-5.78); RDW 12.4 % (11.8-14.1); RDW-SD 42.5 fL; WBC 9.84 10^3/uL (4.4-10.8)
[2024-12-27 19:09] LABS: ALT 34 U/L (16-63); AST 17 U/L (15-37); Albumin 3.5 g/dL (3.4-5.0); Alkaline Phosphatase 87 U/L (46-116); Anion Gap 5.6 mmol/L (3-11); BUN 20 mg/dL (7-18); Bilirubin, Total 0.5 mg/dL (0.2-1.0); C-Reactive Protein 2.37 mg/dL (<or=0.5); CO2 32.4 mmol/L (21.0-32.0); CREATININE 0.9 mg/dL (0.70-1.30); Calcium 8.5 mg/dL (8.5-10.1); Chloride 103 mmol/L (98-107); Estimated GFR 89.62 (mL/min/1.73m2); Glucose 82 mg/dL (74-106); Potassium 3.9 mmol/L (3.5-5.1); Sodium 141 mmol/L (136-145); Total Protein 6.3 g/dL (6.4-8.2)
== END 2024-12-27 16:22 | disposition home or self-care (01) ==
LOC: NCHCN 16:21
PROVIDERS: PCP Student in an Organized Health Care Education/Training Program; Visit Provider Student in an Organized Health Care Education/Training Program
DX: R05.1 Acute cough (principal)
CPT/HCPCS: 80053; 85027; 85652; 86140

== ENCOUNTER 2024-12-27 16:22 | Outpatient (CLI) | payer MEDICARE, SELFPAY ==
--- NOTE | 2024-12-27 | DI.RAD_ITS ---
Exam(s) XR CHEST 2V PA LATERAL EXAM: XR CHEST 2V PA LATERAL CLINICAL HISTORY: Acute cough, R05.1, h/o acute exacerbations of COPD, fever of 101.5 today,. TECHNIQUE: 2D digital imaging was performed. COMPARISON: No exams were available for comparison FINDINGS: 2 views: Heart size is normal. The mediastinum is not widened. Hyperinflation-COPD but no confluent infiltrates nor pleural effusions and no evidence of pulmonary e garrick. IMPRESSION: No acute pulmonary findings.COPD. DATA REPOSITORY: RADIATION DOSE DELIVERED:
== END 2024-12-27 16:42 ==
LOC: DI 16:23
PROVIDERS: PCP Student in an Organized Health Care Education/Training Program; Visit Provider Student in an Organized Health Care Education/Training Program
DX: R05.1 Acute cough (principal)
CPT/HCPCS: 71046

== ENCOUNTER → 2025-02-14 09:31 | Outpatient (BNVA) | payer MEDICARE, SELFPAY | PROVIDERS: PCP Student in an Organized Health Care Education/Training Program; Referring Provider Student in an Organized Health Care Education/Training Program; Visit Provider Physician Assistant Surgical | DX: J44.9 Chronic obstructive pulmonary disease, unspecified (principal); J45.909 Unspecified asthma, uncomplicated | CPT/HCPCS: 99214; G0296; 36415 ==

== ENCOUNTER 2025-02-14 12:48 | Outpatient (REF) | payer MEDICARE, SELFPAY ==
[2025-02-14 11:47] LABS: Abs Immature Grans 0.03 10^3/uL (0.0-0.06); HCT 44.9 % (40.0-50.0); HGB 14.9 g/dL (13.5-17.5); Immature Grans % 0.4 %; MCH 30.7 pg (27.0-33.0); MCHC 33.2 % (32.0-36.0); MCV 93 fL (80-95); MPV 10.9 fL (8.0-11.0); Platelet Count 221 10^3/uL (130-400); RBC 4.85 10^6/uL (4.36-5.78); RDW 12.4 % (11.8-14.1); RDW-SD 42.7 fL; WBC 7.97 10^3/uL (4.4-10.8)
== END 2025-02-14 12:49 | disposition home or self-care (01) ==
LOC: LBN 12:48
PROVIDERS: PCP Student in an Organized Health Care Education/Training Program; Visit Provider Physician Assistant Surgical
DX: J44.9 Chronic obstructive pulmonary disease, unspecified (principal)
CPT/HCPCS: 85025

== ENCOUNTER 2025-03-09 01:53 | Outpatient (CLI) | payer MEDICARE, SELFPAY ==
--- NOTE | 2025-03-09 06:57 | DI.CTLCSR_ITS ---
Exam(s) CT CHEST LUNG CANCER SCREEN EXAM: CT CHEST LUNG CANCER SCREEN CLINICAL HISTORY: Screening for lung cancer,[employer], Z87.891 TECHNIQUE: Imaging Protocol: Axial computed tomography images with coronal and sagittal reformatted images were created and reviewed. Lung Computer Aided Detection (CAD) was utilized. COMPARISON: CT CT CHEST LUNG CANCER SCREEN from 03/14/[address] CHEST WO from 06/10/[address] CHEST LUNG CANCER SCREEN from 07/02/[address] CHEST PE CTA from 01/09/[address] THORACIC LUMBAR SPINE WO from 05/20/2024 FINDINGS: Tracheobronchial tree: Patent where visualized. No bronchiectasis. Pulmonary parenchyma: Emphysematous changes are present in the lungs. There has been interval development of volume loss of the right middle lobe. There is opacification of the airway in the peripheral right middle lobe (series 4, images 96-101). Lung Nodules: There are no new pulmonary nodules. The tiny perifissural nodule associated with the superior aspect of the left major fissure is again seen. Mediastinum and Regi: No dominant adenopathy or fluid collection. The esophagus is unremarkable. Thyroid gland: Unremarkable. Lymph nodes: Unremarkable. Pleura: No effusion or pneumothorax. Heart: The heart is not dilated. There is mild three-vessel coronary artery calcification. No pericardial effusion. Aorta: Thoracic aorta non-dilated.Atherosclerotic calcification is present. Upper abdomen: Unremarkable. Soft Tissues: Unremarkable. Bones: Within normal limits. There are stable compression fracture deformities of T6, T7 and L2. The bones are osteopenic. IMPRESSION: 1. Stable pulmonary nodules. No new or suspicious pulmonary nodules. 2. New atelectatic changes seen in the right middle lobe with obstruction of a few of the right middle airways. Mucous plug versus neoplastic process. 3. Emphysematous changes in the lungs. 4. Stable thoracic and lumbar compression fracture deformities. Lung RADS Cat 2S - Benign Appearance / Behavior: Nodules with a very low likelihood of becoming a clinically active caner due to size or lack of growth. Other: Clinically Significant or Potentially Clinically Significant Findings (non lung cancer) Lung-RADS 1.0 CATEGORIES: Category 0 - Prior chest CT exam(s) being located for comparison. Category 1 - Annual screening in 12 months. No nodules or definitely benign nodules. Category 2 - Annual screening in 12 months. Benign appearance. Nodules with low likelihood of becoming active cancer. Category 3 - 6-month follow-up. Probably benign. Short-term follow-up suggested. Nodules with low likelihood of becoming active cancer. Category 4A - 3-month follow-up and CT/PET if >8 mm in size. Suspicious finding. Findings which require additional testing. Category 4B - Findings which require additional testing and tissue sampling. Suspicious finding. Category 4X - Category 3 or 4 nodules with additional features or imaging findings that increases the suspicion of malignancy. Modifier S- Potentially clinically significant finding. (Non lung cancer) Unexpected findings RADIATION DOSE DELIVERED: 33.6mGy.cm Total DLP 33.6mGy.cmTotal DLP DATA REPOSITORY: All CT scans at this facility are submitted to the National Radiology Data Registry (NRDR) Dose Index Registry (DIR) with the [employer] ([employer]). RADIATION OPTIMIZATION: All CT scans at this facility use at least one of these dose optimization techniques: automated exposure control; mA and/or kV adjustment per patient size (includes targeted exams where dose is matched to clinical indication); or iterative reconstruction.
== END 2025-03-09 02:13 ==
LOC: DI 01:53
PROVIDERS: PCP Student in an Organized Health Care Education/Training Program; Visit Provider Physician Assistant Surgical
DX: Z12.2 Encounter for screening for malignant neoplasm of respiratory organs (principal); Z87.891 Personal history of nicotine dependence
CPT/HCPCS: 71271

== ENCOUNTER 2025-05-17 01:23 | Outpatient (CLI) | payer MEDICARE, SELFPAY ==
--- NOTE | 2025-05-17 08:30 | DI.CT_ITS ---
Exam(s) CT CHEST WO EXAM: CT CHEST WO CLINICAL HISTORY: F/U ABNL LUNG SCREENING CT,R91.8,ASSESS FOR RESOLUTION,? MUCUS PLUGGING. TECHNIQUE: Imaging protocol: Axial computed tomography images were obtained and coronal and sagittal reformatted images were created and reviewed. Computer aided detection (CAD) was utilized. CONTRAST MATERIAL: Noncontrast COMPARISON: CT CT CHEST PE CTA from 01/09/2024 CR XR CHEST 2V PA LATERAL from 12/27/[address] CHEST LUNG CANCER SCREEN from 03/09/2025 FINDINGS: Pulmonary parenchyma: Atelectasis is again noted in the right middle lobe the similar appearance to the prior exam. No visible mass. No suspicious nodules. Mild atelectasis versus scarring is present in the right lung base. Emphysema: Mild to moderate, greater in the upper lobes. Tracheobronchial tree: Mucous plugging again noted in right middle lobe distal bronchi. No bronchiectasis. Pleura: No effusion or pneumothorax. Heart: The heart is not dilated. The coronary arteries show mild calcifications. Aorta: Thoracic aorta non-dilated. Mild atherosclerotic changes. Lymph nodes: No enlarged lymph nodes. Bones: Degenerative changes are seen. Stable compression fractures of T6, T7 and L2. Upper abdomen: Unremarkable. Soft tissues: Unremarkable. IMPRESSION: Stable appearance of right middle lobe atelectasis and mucous plugging. No mass is visible. No new findings. RADIATION DOSE DELIVERED: Total DLP Total DLP DATA REPOSITORY: All CT scans at this facility are submitted to the National Radiology Data Registry (NRDR) Dose Index Registry (DIR) with the [employer] ([employer]). RADIATION OPTIMIZATION: All CT scans at this facility use at least one of these dose optimization techniques: automated exposure control; mA and/or kV adjustment per patient size (includes targeted exams where dose is matched to clinical indication); or iterative reconstruction.
== END 2025-05-17 01:43 ==
LOC: DI 01:23
PROVIDERS: PCP Student in an Organized Health Care Education/Training Program; Visit Provider Physician Assistant Surgical
DX: R91.8 Other nonspecific abnormal finding of lung field (principal)
CPT/HCPCS: 71250

== ENCOUNTER 2025-05-22 10:50 | Outpatient (CLI) | payer MEDICARE, SELFPAY ==
--- NOTE | 2025-05-22 | DI.RAD_ITS ---
Exam(s) XR HIP RT COMPLETE AP PELVIS EXAM: XR HIP RT COMPLETE AP PELVIS CLINICAL HISTORY: PAIN RT HIP M25.551 FALL 1 WEEK AGO CAN BARE WEIGHT PAINFUL IN MORNING R/O. TECHNIQUE: 2D digital imaging was performed of the right hip. Two images were obtained. AP pelvis and lateral right hip views were obtained. COMPARISON: CT CT CHEST PE CTA from 01/09/2024 FINDINGS: BONES: No acute fracture is present. No bony destructive lesion is seen. JOINTS: No dislocation present. There is chondrocalcinosis associated with the right acetabulum. SOFT TISSUE: Normal. IMPRESSION: 1. There is chondrocalcinosis seen in the right hip. 2. There is no acute or healing fracture or dislocation. DATA REPOSITORY: RADIATION DOSE DELIVERED:
== END 2025-05-22 11:10 ==
LOC: DI 10:50
PROVIDERS: PCP Student in an Organized Health Care Education/Training Program; Visit Provider Student in an Organized Health Care Education/Training Program
DX: M11.251 Other chondrocalcinosis, right hip (principal)
CPT/HCPCS: 73502

== ENCOUNTER 2025-06-06 10:51 | Outpatient (CLI) | payer MEDICARE, SELFPAY ==
[2025-06-06 12:02] LABS: Alkaline Phosphatase 151 U/L (46-116); Magnesium 1.3 mg/dL (1.8-2.4); TSH (W/Ref FT4) 4.96 uIU/mL (0.36-3.74)
[2025-06-06 12:09] LABS: Iron 98 ug/dL (65-175)
[2025-06-07 10:17] LABS: Transferrin 217 mg/dL (201-352)
== END 2025-06-06 10:52 | disposition home or self-care (01) ==
LOC: LBO 10:51
PROVIDERS: PCP Student in an Organized Health Care Education/Training Program; Visit Provider Student in an Organized Health Care Education/Training Program
DX: M11.251 Other chondrocalcinosis, right hip (principal)
CPT/HCPCS: 36415; 82330; 83540; 83735; 83970; 84075; 84100; 84439; 84443; 84466